=== PATIENT | female | born 1980 | race Caucasian/White ===

== ENCOUNTER 2018-05-04 13:18 | Observation (INO) | payer MEDICAID ==
[~2018-05-04] VITALS: Ht 175.3 cm; Wt 98.9 kg
[~2018-05-04 13:18] MED LIST: BC POWDER PACK1 EAC1 PO; TYLENOL WITH C1 EACH PO; Z.0.MOTRIN600 MG PO
[2018-05-04] MEDS ORDERED: DIATRIZOATE MEGL/DIATRIZOA SOD 30 ML BTL PO ONE (14:43)
[2018-05-04] MEDS ORDERED: SODIUM CHLORIDE 0.9% 250ML 250 ML IV ONE ×2 (14:45→16:15)
--- NOTE | 2018-05-04 15:05 | NUR ---
PT TO RM 3
[2018-05-04 15:08] LABS: BASOPHILS # (AUTO) 0.1 (0.0-0.1); BASOPHILS % 0.5 % (0.0-1.0); EOSINOPHILS % 0.1 % (0.0-6.0); LYMPHOCYTES # (AUTO) 1.4 (1.0-3.2); LYMPHOCYTES % 12.4 % (18.0-39.1); MEAN CORPUSCULAR HEMOGLOBIN 15.7 pg (28-32); MEAN CORPUSCULAR HGB CONC 23.8 g/dL (31-35); MEAN CORPUSCULAR VOLUME 65.8 fL (81-99); MONOCYTES # (AUTO) 0.8 (0.2-0.8); MONOCYTES % 7.2 % (4.4-11.3); NEUTROPHILS # (AUTO) 8.7 (2.1-6.9); NEUTROPHILS % 79.3 % (38.7-80.0); PLATELET COUNT 187 x10e3/uL (140-360); RED BLOOD COUNT 2.81 x10e6/uL (3.6-5.1); RED CELL DISTRIBUTION WIDTH 27.6 % (11.7-14.4)
[2018-05-04 15:09] LABS: HEMATOCRIT 18.5 % (34.2-44.1); HEMOGLOBIN 4.4 g/dL (12.0-16.0)
--- NOTE | 2018-05-04 15:10 | NUR ---
MARY FROM LAB CALLED TO REPORT H&H 4.07/09.5. INFORMED DR. BANEGAS OF CRITICAL LAB RESULTS.
[2018-05-04 15:30] LABS: ALANINE AMINOTRANSFERASE 9 IU/L (0-55); ALBUMIN 4.1 g/dL (3.5-5.0); ALBUMIN/GLOBULIN RATIO 1.1 (0.8-2.0); ALKALINE PHOSPHATASE 68 IU/L (40-150); AMYLASE 50 U/L (25-125); ANION GAP 15.6 mmol/L (8-16); BLOOD UREA NITROGEN 5 mg/dL (7-26); BUN/CREATININE RATIO 7 (6-25); CALCIUM 9.2 mg/dL (8.4-10.2); CARBON DIOXIDE 20 mmol/L (22-29); CHLORIDE 104 mmol/L (98-107); CREATININE, SERUM 0.67 mg/dL (0.57-1.11); EST GLOMERULAR FILTRATION RATE > 60 ML/MIN (60-); GLUCOSE 95 mg/dL (74-118); LIPASE 16 U/L (8-78); MAGNESIUM 2.2 MG/DL (1.3-2.1); POTASSIUM 3.6 mmol/L (3.5-5.1); SODIUM 136 mmol/L (136-145)
[2018-05-04 16:57] LABS: CLARITY,URINE CLEAR (CLEAR); COLOR,URINE YELLOW (YELLOW); LEUKOCYTE ESTERASE ,URINE NEGATIVE (NEGATIVE); NITRITE,URINE NEGATIVE (NEGATIVE); PROTEIN,URINE DIPSTICK NEGATIVE (NEGATIVE)
[2018-05-04 16:58] LABS: BILIRUBIN,URINE NEGATIVE (NEGATIVE); KETONES,URINE NEGATIVE (NEGATIVE); URINE UROBILINOGEN 0.2 mg/dL (0.2 - 1)
[2018-05-04 17:10] LABS: BACTERIA,URINE MODERATE /HPF; EPITHELIAL CELLS,URINE MODERATE /LPF
--- NOTE | 2018-05-04 17:13 | Diagnostic Imaging Report ---
EXAMINATION: CT of the abdomen and pelvis with contrast. TECHNIQUE: Helical CT images of the abdomen and pelvis were performed from the lung bases to the lesser trochanters after the intravenous administration of 150 cc of Isovue 300 and the oral administration of enteric contrast. Coronal and sagittal reformatted images were obtained.Dose modulation, iterative reconstruction, and/or weight based adjustment of the mA/kV was utilized to reduce the radiation dose to as low as reasonably achievable. COMPARISON: None. CLINICAL HISTORY:Severe left-sided pain DISCUSSION: ABDOMEN/PELVIS: LOWER THORAX:Unremarkable. HEPATOBILIARY: No focal hepatic lesions. No intra-or extrahepatic biliary ductal dilation. The gallbladder is normal. SPLEEN: No splenomegaly. PANCREAS: No focal masses or ductal dilatation. ADRENALS: No adrenal nodules. KIDNEYS/URETERS: No hydronephrosis, stones, or solid mass lesions. PELVIC ORGANS/BLADDER: The endometrial canal is irregular thickened. Subserosal pedunculated fibroid extending 6.5 cm fundus PERITONEUM/RETROPERITONEUM: No free air or fluid. LYMPH NODES: No intra-abdominal, retroperitoneal, pelvic or inguinal lymphadenopathy. VESSELS: The celiac trunk,superior and inferior mesenteric and bilateral renal arteries are patent The portal, superior mesenteric and splenic veins are patent. GI TRACT: No distention or wall thickening. BONES AND SOFT TISSUE: No bony destructive lesions. No soft tissue abnormalities. IMPRESSION: A subserosal pedunculated 6.5 cm uterine fibroid Irregularity and thickening of the endometrial canal Signed by: Dr. Issac Gates M.D. on 05/04/2018 5:10 PM
--- OUTSIDE RECORDS SUMMARY | 2018-05-04 17:42 | XMS REPORT ---
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 Allergies, Adverse Reactions, Alerts This patient has no known allergies or adverse reactions. Medications This patient has no known medications. 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 TECH NIQUE: Helical CT images of the abdomen and pelvis were performed from the lung bases to the lesser trochanters after the intravenous administration of 150 cc of Isovue 300 and the oral administration of enteric contrast. Coronal and sagittal reformatted images were obtained.Dose modulation, iterative reconstruction, and/or weight based adjustment of the mA/kV was utilized to reduce the radiation dose to as low as reasonably achievable. COMPARISON: None. CLINICAL HISTORY:Severe left-sided pain DISCUSSION: ABDOMEN/PELVIS: LOWER THORAX:Unremarkable. HEPATOBILIARY: No focal hepatic lesions. No intra-or extrahepatic biliary ductal dilation. The gallbladder is normal. SPLEEN: No splenomegaly. PANCREAS: No focal masses or ductal dilatation. ADRENALS: No adrenal nodules. KIDNEYS/URETERS: No hydronephrosis, stones, or solid mass lesions. PELVIC ORGANS/BLADDER: The endometrial canal is irregular thickened. Subserosal pe dunculated fibroid extending 6.5 cm fundus PERITONEUM/RETROPERITONEUM: No free air or fluid. LYMPH NODES: No intra-abdominal, retroperitoneal, pelvic or inguinal lymphadenopathy. VESSELS: The celiac trunk,superior and inferior mesenteric and bilateral renal arteries are patent The portal, superior mesenteric and splenic veins are patent. GI TRACT: No distention or wall thickening. BONES AND SOFT TISSUE: No bony destructive lesions. No soft tissue abnormalities. IMPRESSION: A subserosal pedunculated 6.5 cm uterine fibroid Irregularity and thickening of the endometrial canal Signed by: Dr. Davy Pozo M.D. on 05/04/2018 5:10 PM Dictated By: DAVY POZO MD 09 Transcribed By: DARIN on 05/04/181709 COPY TO: BRUNO OCASIO NP
--- NOTE | 2018-05-04 19:19 | NUR ---
report given to RADHA Lazcano
[2018-05-04] MEDS ORDERED: IOPAMIDOL 370 MG/ML 200 ML INFUS..BTL INJ ONE (20:32)
[2018-05-04] MEDS ORDERED: SODIUM CHLORIDE 0.9% 50ML 50 ML ONE (20:32)
[2018-05-04 21:21] VITALS: BP 113/55
[2018-05-04] MEDS: HYDROCODONE/APAP 5MG-325MG TAB PO PRN (22:20)
[2018-05-04] MEDS ORDERED: SODIUM CHLORIDE 0.9% 250ML 250 ML ONE (23:53)
[2018-05-05] VITALS: BP 104/51
[2018-05-05 00:18] VITALS: BP 105/52
[2018-05-05] MEDS: ACETAMINOPHEN 325 MG TAB PO PRN ×2 (03:06→21:05)
[2018-05-05 04:00] VITALS: BP 103/58
[2018-05-05 05:35] LABS: BASOPHILS # (AUTO) 0.1 (0.0-0.1); BASOPHILS % 1.1 % (0.0-1.0); EOSINOPHILS # (AUTO) 0.2 (0.0-0.4); EOSINOPHILS % 2.1 % (0.0-6.0); LYMPHOCYTES # (AUTO) 1.6 (1.0-3.2); LYMPHOCYTES % 18.9 % (18.0-39.1); MEAN CORPUSCULAR HEMOGLOBIN 19.1 pg (28-32); MEAN CORPUSCULAR HGB CONC 27.2 g/dL (31-35); MONOCYTES % 12.2 % (4.4-11.3); NEUTROPHILS # (AUTO) 5.4 (2.1-6.9); NEUTROPHILS % 65.5 % (38.7-80.0); PLATELET COUNT 174 x10e3/uL (140-360); RED BLOOD COUNT 3.24 x10e6/uL (3.6-5.1); RED CELL DISTRIBUTION WIDTH 28.1 % (11.7-14.4)
[2018-05-05 05:37] LABS: HEMATOCRIT 22.8 % (34.2-44.1)
[2018-05-05 05:39] LABS: HEMOGLOBIN 6.2 g/dL (12.0-16.0); MEAN CORPUSCULAR VOLUME 70.4 fL (81-99)
[2018-05-05] MEDS ORDERED: SODIUM CHLORIDE 0.9% 250ML 250 ML IV ONE (05:45)
--- NOTE | 2018-05-05 05:45 | NUR ---
Called Dr. Vazquez about patient's Hemoglobin at 6.2 and hematocrit at 22.8. Dr. Vazquez said to give two more units of blood.
[2018-05-05] MEDS: HYDROCODONE/APAP 5MG-325MG TAB PO PRN ×2 (06:04→16:12)
[2018-05-05 07:25] LABS: ANISOCYTOSIS MODE; HYPOCHROMASIA MODERATE; PLATELET ESTIMATE ADEQUATE; POIKILOCYTOSIS SLIGHT; RBC MORPHOLOGY COMMENT ABNORMAL
[2018-05-05 07:26] LABS: PLATELET MORPHOLOGY COMMENT NORMAL
[2018-05-05 08:13] VITALS: BP 101/57
--- NOTE | 2018-05-05 09:24 | NUR ---
SOCIAL WORK INITIAL ASSESSMENT Futures Trader to bedside to discuss plan of care with patient/family. CM/SW role and care transitions discussed. Anticipated discharge plan discussed along with duration of care. CM/SW discussed patients right to make decisions in care. CM/SW work hours given. Patient lives: IN HOUSE WITH FRIENDS Admit/Transfer: VIA ED FROM HOME POA/Emergency contact: MELINDA HAIDER [phone] Current/Previous Home Health: NONE PCP/Follow-up Care: NONE Current/Previous DME: NONE Other Services: GAVE RESOURCE PACKET FOR COMMUNITY REFERRALS FOR ASSISTANCE THAT PT WILL NEED TO FOLLOW UP UPON DISCHARGE. Employment Status: NOT WORKING Areas of Concerns: NONE Referral Needs: NONE Education Needs: NONE IMM/CONLEY given and signed (if applicable): NA Goal for discharge: RETURN HOME CM/SW left business card at the bedside with contact information. Name and number was also written on the patients whiteboard. Patient verbalized understanding of discussion. CM will follow-up with ongoing discharge and transition of care needs.
[2018-05-05 11:36] VITALS: BP 108/54
--- NOTE | 2018-05-05 13:20 | NUR ---
Visit made by the Spiritual Care Department Pastoral Visitor, Heather Penaloza. PV provided pastoral presence, prayer, hospitality, and supportive listening. Pastoral Visitor informed pt/family of the scope of Water Resources Project Manager Services and availability. MAGDY GLASER Printed Circuit Board Assembler Spiritual Care Department O: [phone] Pager: [phone] ([phone] number calling from)
--- NOTE | 2018-05-05 13:30 | History and Physical ---
MEDICINE HISTORY AND PHYSICAL CHIEF COMPLAINT: Vaginal bleeding. HPI: This is a 37-year-old female who reports having very heavy periods ongoing for the last several months. Comes in with reports of lightheadedness, dizziness and fatigue, and found to have a hemoglobin of 4.4. Patient reports that her periods usually last about a few days. Of note, recently has been lasting for more than 15-16 days. She does not follow up with an [facility] as an outpatient. The patient was seen and evaluated at bedside on the medical floor. Currently, doing well with no other issues. She received 2 units packed RBCs and she will receive 1 more unit of blood. She is currently feeling much better at this time. REVIEW OF SYSTEMS: Pertinent positives are lightheadedness, fatigue. Pertinent negatives are denies any chest pain, palpitations, nausea, vomiting, diarrhea, dysuria, hematuria, frequency, urgency, abdominal pain, headache, shortness of breath, cough, congestion, fever, or any other complaints. The rest of the 14-point review of systems have been reviewed with the patient and are negative. ALLERGIES: NO KNOWN DRUG ALLERGIES. HOME MEDICATIONS: Tylenol No. 3. PAST MEDICAL HISTORY: Heavy periods. FAMILY HISTORY: None. SOCIAL HISTORY: No drinking alcohol or drugs. PHYSICAL EXAMINATION VITAL SIGNS: Temperature is 98.3, pulse 70, respiratory rate 18, blood pressure , pulse ox 97% on room air. GENERAL: Not in acute distress. Alert and oriented times 3. Cooperative on examination. HEENT: Head is normocephalic and atraumatic. Eyes: Pupils equal, round and reactive to light bilaterally. Extraocular movements intact bilaterally. NECK: Supple. Good range of motion. Throat with no evidence of any erythema or exudates in the posterior pharynx. Has poor dentition. PULMONARY: Clear to auscultation bilaterally. No wheezing. No rales. No rhonchi. No crackles appreciated. CARDIOVASCULAR: Positive S1 and S2. No murmurs, rubs or gallops appreciated. ABDOMEN: Soft, nondistended and nontender to palpation. Bowel sounds present. MUSCULOSKELETAL: Strength is 5/5 throughout. No evidence of any muscle deficit on examination. No weakness appreciated. NEUROLOGICAL: Cranial nerves II-XII are grossly intact. No evidence of any neurological deficits on exam. SKIN: Intact. Warm to touch. Good cap refill. PSYCHIATRIC: Normal affect and mood. EXTREMITIES: No edema. Good range of motion throughout. LAB FINDINGS: Show white count is 8.3, hemoglobin on admission 4.4 and now 6.2 on repeat soon after the blood transfusion, and platelets are 174,000. Chemistry: Sodium 136, potassium 3.6, chloride 104, bicarb 28, anion gap of 15, BUN is 5, creatinine is 0.67, glucose 95. LFTs were normal. Lipase is 16. HCG is negative. Urinalysis negative. MICROBIOLOGY: Cultures are pending. IMAGING STUDIES: Abdominal CT of the abdomen and pelvis shows subserosal of 6.5 and uterine fibroid. Irregular and consistent with uterine fibroid. IMPRESSION 1. Vaginal bleeding secondary to uterine fibroids. 2. Anemia. 3. Fatigue and generalized weakness. PLAN: At this time, the patient has received 3 units of packed RBCs. She has 1 more unit to be given today. Repeat hemoglobin at that time. If it is appropriate and she has no more symptoms, she will be discharged home later today. Information from [facility] and primary care has been given to them in which she needs to follow up very closely with them. Otherwise, will continue same plan of care and monitor very closely. Job#: [id number] SHADE
[2018-05-05 16:33] VITALS: BP 109/54
--- NOTE | 2018-05-05 19:10 | NUR ---
PATIENT IS IN BED AND WAITING FOR BLOOD TO BE DRAWN. GIRLFRIEND IS AT THE BEDSIDE.
[2018-05-05 20:11] LABS: HEMATOCRIT 28.4 % (34.2-44.1); HEMOGLOBIN 8.3 g/dL (12.0-16.0)
--- NOTE | 2018-05-05 21:10 | NUR ---
PATIENT WAS GIVEN PRESCRIPTIONS AND DISCHARGE INFORMATION. THE IV WAS TAKEN OUT WITH THE TIP INTACT. PATIENT LEFT VIA WHEELCHAIR HOME. NO DISTRESS NOTED ON DISCHARGE. DRESSING APPLIED AFTER THE IV WAS TAKEN OUT.
--- NOTE | 2018-05-05 23:24 | Discharge Summary ---
FINAL DISCHARGE DIAGNOSES: 1. Uterine fibroids leading to vaginal bleeding. 2. Anemia. 3. Generalized weakness and fatigue, now improved. Now with hemoglobin of 8.6 upon discharge with no symptoms. CONSULTANTS: None. VITAL SIGNS: She is afebrile, normotensive. Respiratory rate is good. LABS: Hemoglobin now is 8.6 upon discharge. When she came in, hemoglobin was 4.4. HOSPITAL COURSE: This is a 37-year-old female who came in with complaints of generalized weakness and fatigue and dizziness, found to have a hemoglobin of approximately 4, requiring blood transfusion times 4 units. On discharge, hemoglobin was 8.6. Patient reports she has a history of uterine fibroids leading to her underlying vaginal bleeding. She is currently doing much better. On discharge, she had no more vaginal bleeding. Her hemoglobin improved. Her symptoms all resolved. On the day of discharge, her vital signs were stable, labs reviewed and stable. Patient was seen, evaluated, and examined thoroughly on the day of discharge with no other complaints. Patient verbalized understanding and agrees with plan of care, to follow up accordingly as an outpatient with her primary care physician in 1 week time. MEDICATIONS: See med reconciliation form. DISPOSITION: To home. CONDITION: Stable. DIET: Heart healthy. In the event of any worsening symptoms, patient advised to come back to the ED for further evaluation. Discharge summary took greater than 35 minutes. RONNIE ARREOLA MD Job#: [id number]
== END 2018-05-05 21:20 | disposition home or self-care (01) ==
LOC: ER 13:18 → ERHOLD 17:31 → IMCU 21:21
PROVIDERS: ADMIT Internal Medicine; ATTEND Internal Medicine
DX: D25.2 Subserosal leiomyoma of uterus (principal); N93.9 Abnormal uterine and vaginal bleeding, unspecified; D50.0 Iron deficiency anemia secondary to blood loss (chronic); R53.1 Weakness
CPT/HCPCS: 36415 ×2; 36430 ×2; 74177; 80053; 81001; 82150; 83690; 83735; 84702; 85014; 85018; 85025 ×2; 86850; 86900; 86920; 87086; 99284; G0378 ×2; J7050 ×2; P9016 ×2; Q9967

== ENCOUNTER 2018-10-01 15:35 | Emergency (ER) | payer SELFPAY ==
[~2018-10-01] VITALS: Ht 175.3 cm; Wt 91.2 kg
[2018-10-01 17:39] VITALS: BP 107/67
== END 2018-10-01 16:58 | disposition home or self-care (01) ==
LOC: FSED 15:35
DX: L03.211 Cellulitis of face (principal); K13.0 Diseases of lips; F17.210 Nicotine dependence, cigarettes, uncomplicated
CPT/HCPCS: 82948; 99282

== ENCOUNTER 2018-10-03 14:18 | Emergency (ER) | payer SELFPAY ==
[~2018-10-03] VITALS: Ht 175.3 cm; Wt 91.2 kg
== END 2018-10-03 15:15 | disposition home or self-care (01) ==
LOC: ER 14:18
DX: B00.1 Herpesviral vesicular dermatitis (principal); L03.211 Cellulitis of face
CPT/HCPCS: 99283

== ENCOUNTER 2019-05-16 13:30 | Emergency (ER) | payer SELFPAY ==
[~2019-05-16] VITALS: Ht 175.3 cm; Wt 91.2 kg
[2019-05-16] MEDS ORDERED: CLINDAMYCIN PHOS 600 MG/ 4 ML VIAL IM ONE (13:45)
[2019-05-16] MEDS ORDERED: HYDROCODONE/APAP 5MG-325MG TAB PO ONE (14:00)
== END 2019-05-16 14:52 | disposition home or self-care (01) ==
LOC: ER 13:30
DX: L02.01 Cutaneous abscess of face (principal)
CPT/HCPCS: 99283

== ENCOUNTER 2019-09-20 16:26 | Emergency (ER) | payer SELFPAY ==
[~2019-09-20] VITALS: Ht 175.3 cm; Wt 91.2 kg
[2019-09-20] MEDS ORDERED: ONDANSETRON HCL 4 MG ORAL DISINTEGRATING TAB PO ONE (17:00)
--- NOTE | 2019-09-20 17:23 | Emergency Department Note ---
History of Present Illnes History of Present Illness Chief Complaint: General Medicine Complaints History of Present Illness This is a 39 year old female PATIENT IN FROM HOME WITH COMPLAINTS OF NAUSEA, VOMITING, HEADACHE AND GENERAL WEAKNESS SINCE FRIDAY; PATIENT ALERT AND ORIENTED, RESP EVEN AND NONLABORED, APPEARS IN NO DISTRESS, AMBULATORY WITHOUT ASSISTANCE, RATES PAIN 3/10. 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 Any updates have been documented here. Past Medical History Recent Fever: No Clinical Suspicion of Infectio: No New/Unexplained Change in Ment: No Past Medical History: Anemia Other Medical History: menorrhagia UTERINE FIBROIDS Other Surgery: R arm artery surgery Social History Smoking Cessation: Current every day smoker Counseling Performed: Yes Alcohol Use: Social Any Illegal Drug Use: No TB Exposure/Symptoms: No Physically hurt or threatened: No Family History Family history of heart diseas: No Other Last Tetanus: UNKNOWN Any Pre-Existing Lines (PICC,: No Review of Systems Review of Systems Constitutional: Reports no symptoms EENTM: Reports no symptoms Cardiovascular: Reports no symptoms Respiratory: Reports no symptoms Gastrointestinal: Reports nausea, Reports vomiting Genitourinary: Reports no symptoms Musculoskeletal: Reports no symptoms Integumentary: Reports no symptoms Neurological: Reports headache Psychological: Reports no symptoms Endocrine: Reports no symptoms Hematological/Lymphatic: Reports no symptoms Physical Exam Related Data Allergies: Coded Allergies: No Known Allergies (Unverified , 04/01/19) Triage Vital Signs Vital Signs Date Time Temp Pulse Resp B/P (MAP) Pulse Ox O2 Delivery O2 Flow Rate FiO2 09/20/19 16:49 98.3 96 20 127/85 100 Vital signs reviewed: Yes Physical Exam CONSTITUTIONAL Constitutional: Present well-developed, Present well-nourished HENT HENT: Present normocephalic, Present atraumatic, Present mucosae dry, Present nose normal HENT L/R: Present left ext ear normal, Present right ext ear normal EYES Eyes: Reports PERRL, Reports conjunctivae normal NECK Neck: Present ROM normal PULMONARY Pulmonary: Present effort normal, Present breath sounds normal CARDIOVASCULAR Cardiovascular: Present regular rhythm, Present heart sounds normal, Present capillary refill normal, Present normal rate GASTROINTESTINAL Abdominal: Present soft, Present nontender, Present bowel sounds normal GENITOURINARY Genitourinary: Present exam deferred SKIN Skin: Present warm, Present dry MUSCULOSKELETAL Musculoskeletal: Present ROM normal NEUROLOGICAL Neurological: Present alert, Present oriented x 3, Present no gross motor or sensory deficits PSYCHOLOGICAL Psychological: Present mood/affect normal, Present judgement normal Assessment & Plan Medical Decision Making [facility] PT'S VITALS ARE GOOD, NO DISTRESS, NORMAL EXAM, NO ABD TENDERNESS - WILL GIVE ZOFRAN ODT, DC HOME Reassessment Reassessment IMPROVED WITH ZOFRAN ODT - WILL DC WITH RX Assessment & Plan Final Impression: (1) Vomiting Depart Disposition: HOME, SELF-CARE Last Vital Signs Date Time Temp Pulse Resp B/P (MAP) Pulse Ox O2 Delivery O2 Flow Rate FiO2 09/20/19 16:49 98.3 96 20 127/85 100 Home Meds Reported Medications Acetaminophen With Codeine (TYLENOL WITH CODEINE #3 TABLET) 1 Each Tablet, 300 MG PO PRN, TAB 01/20/16 Medications in the ED Ondansetron HCl 4 mg ONCE ONCE PO Last administered on 09/20/19at 17:21; Admin Dose 4 MG; Start 09/20/19 at 17:00; Stop 09/20/19 at 17:01; Status UNV SUSHMA YING MD Sep 20, 2019 17:23
== END 2019-09-20 17:30 | disposition home or self-care (01) ==
LOC: ER 17:08
DX: R11.2 Nausea with vomiting, unspecified (principal); R51 Headache; R53.1 Weakness; D64.9 Anemia, unspecified
CPT/HCPCS: 99282

== ENCOUNTER 2019-10-25 19:56 | Emergency (ER) | payer SELFPAY ==
[~2019-10-25] VITALS: Ht 175.3 cm; Wt 89.8 kg
[2019-10-25] MEDS ORDERED: KETOROLAC TROMETHAMINE 30 MG/ML VIAL IV ONE (20:48)
[2019-10-25] MEDS ORDERED: SODIUM CHLORIDE FLUSH 10 ML SYR INJ PRN (21:00)
[2019-10-25] MEDS ORDERED: LORAZEPAM INJ 2 MG/ML VIAL IV ONE (21:00)
[2019-10-25] MEDS ORDERED: ORPHENADRINE CITRATE 30 MG/ML VIAL IM ONE (21:00)
--- NOTE | 2019-10-25 21:20 | NUR ---
PT REFUSED ALL TREATMENT STATING SHE DID NOT THINK IT WAS NEEDED AND ASKING TO GO HOME.
[2019-10-25 21:37] VITALS: BP 142/63
--- NOTE | 2019-10-25 21:37 | Emergency Department Note ---
History of Present Illnes History of Present Illness Chief Complaint: left cp History of Present Illness This is a 39 year old female. 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 Onset (how long ago): hour(s) (1) Location: left cp Quality: sharp Radiation: Reports non-radiation Severity: moderate Onset quality: gradual Duration (how long): hour(s) (1) Timing of current episode: intermittent Progression: partially resolved Chronicity: new Context: Denies recent illness, Denies recent surgery, Denies recent immobilization, Denies recent travel, Denies trauma/injury, Denies new medications, Denies hx of DVT/PE, Denies non-compliance w/ medications Relieving factors: none Exacerbating factors: movement Associated symptoms: Reports chest pain, Reports shortness of breath, Reports other (+ back pain) Treatments prior to arrival: none Past Medical/Family History Physician Review I have reviewed the patient's past medical and family history. Any updates have been documented here. Past Medical History Recent Fever: No Clinical Suspicion of Infectio: No New/Unexplained Change in Ment: No Past Medical History: Anemia Other Medical History: ANEMIA Other Surgery: R-ARM ARTERY Social History Smoking Cessation: Current every day smoker Alcohol Use: Occasional Any Illegal Drug Use: No Physically hurt or threatened: No Other Last Tetanus: UNKNOWN Any Pre-Existing Lines (PICC,: No Review of Systems Review of Systems Constitutional: Reports no symptoms EENTM: Reports no symptoms Cardiovascular: Reports as per HPI Respiratory: Reports as per HPI Gastrointestinal: Reports no symptoms Genitourinary: Reports no symptoms Musculoskeletal: Reports as per HPI Integumentary: Reports no symptoms Neurological: Reports no symptoms Psychological: Reports no symptoms Endocrine: Reports no symptoms Hematological/Lymphatic: Reports no symptoms Review of other systems: All other systems negative Physical Exam Related Data Allergies: Coded Allergies: No Known Allergies (Unverified , 04/01/19) Triage Vital Signs Vital Signs Date Time Temp Pulse Resp B/P (MAP) Pulse Ox O2 Delivery O2 Flow Rate FiO2 10/25/19 20:25 98.9 84 18 142/63 100 Room Air Vital signs reviewed: Yes Physical Exam CONSTITUTIONAL Constitutional: Present well-developed, Present well-nourished HENT HENT: Present normocephalic, Present atraumatic, Present oropharynx clear/moist, Present nose normal HENT L/R: Present left ext ear normal, Present right ext ear normal EYES Eyes: Reports PERRL, Reports conjunctivae normal NECK Neck: Present ROM normal, Present supple PULMONARY Pulmonary: Present effort normal, Present breath sounds normal, Present other (=left cw tenderness) CARDIOVASCULAR Cardiovascular: Present regular rhythm, Present heart sounds normal, Present intact distal pulses, Present capillary refill normal, Present normal rate GASTROINTESTINAL Abdominal: Present soft, Present nontender, Present bowel sounds normal GENITOURINARY Genitourinary: Present exam deferred SKIN Skin: Present warm, Present dry MUSCULOSKELETAL Musculoskeletal: Present ROM normal NEUROLOGICAL Neurological: Present alert, Present oriented x 3, Present no gross motor or sensory deficits PSYCHOLOGICAL Psychological: Present mood/affect normal, Present judgement normal Assessment & Plan Medical Decision Making MDM see below Reassessment Reassessment symptoms resolved and pt signed out ama despite possibility of or permanent disability. pt refuse a work up Assessment & Plan Final Impression: (1) Acute chest pain (2) Left against medical advice Depart Disposition: HOME, SELF-CARE Last Vital Signs Date Time Temp Pulse Resp B/P (MAP) Pulse Ox O2 Delivery O2 Flow Rate FiO2 10/25/19 20:25 98.9 84 18 142/63 100 Room Air Home Meds Reported Medications Acetaminophen With Codeine (TYLENOL WITH CODEINE #3 TABLET) 1 Each Tablet, 300 MG PO PRN, TAB 01/20/16 Medications in the ED Sodium Chloride 10 ml PRN PRN INJ IV SITE FLUSH; Start 10/25/19 at 21:00; Stop 11/24/19 at 20:59 Ketorolac Tromethamine 30 mg ONCE ONCE IV ; Start 10/25/19 at 20:48; Stop 10/25/19 at 21:04; Status DC Orphenadrine Citrate 60 mg ONCE ONCE IM ; Start 10/25/19 at 21:00; Stop 10/25/19 at 20:57; Status DC Lorazepam 1 mg ONCE ONCE IV ; Start 10/25/19 at 21:00; Stop 10/25/19 at 21:04; Status DC BIJAN AVALOS Oct 25, 2019 21:37
--- OUTSIDE RECORDS SUMMARY | 2019-10-26 01:25 | XMS REPORT | Continuity of Care Document ---
Author Author [facility] t Organization [facility] Address [address] [place] [phone] Phone Unavailable Care Team Providers Care Finish Machine Tender Name Role Phone NO, PCP PCP Unavailable Gaby YING Attphys Unavailable Latha BANEGAS Attphys Unavailable Payers Payer Name Policy Type Policy Number Effective Date Expiration Date S ource Self Pay NA [facility] Medicaid Pending [facility] Problems Condition Name Condition Details Condition Category Status Onset Date Resolution Date Last Treatment Date Treating Clinician Comments Source Severe anemia Severe anemia Problem Active 2015-07-23 00:00:00 [facility] Uterine leiomyoma Uterine fibroid Problem Active [facility] Vomiting Problem Active [facility] Allergies, Adverse Reactions, Alerts This patient has no known allergies or adverse reactions. Social History Social Habit Start Date Stop Date Quantity Comments Source Sex Assigned At 1980 00:00:00 1980 00:00:00 Female [facility] Medications Ordered Medication Name Filled Medication Name Start Date Stop Da te Current Medication? Ordering Clinician Indication Dosage Frequency Signature (SIG) Comments Components Source Acetaminophen With Codeine (Tylenol With Codeine #3 Ta blet) 1 Each TABLET Acetaminophen With Codeine (Tylenol With Codeine #3 Tablet) 1 Each TABLET Yes 300 As Needed [facility] Aspirin/Caffeine (Bc Powder Packet) 1 Each POWD.PACK A spirin/Caffeine (Bc Powder Packet) 1 Each POWD.PACK 2015-07-25 00:00:00 No 1 3X Weekly [facility] Vital Signs Vital Name Observation Time Observation Value Comments Source Weight 2019-09-20 16:49:00 201 [lb_av] [facility] BMI (Body Mass Index) 2019-09-20 16:49:00 29.7 kg/m2 [facility] Procedures Procedure Date / Time Performed Performing Clinician [facility] e X-ray of chest, two views 2019-04-01 00:00:00 BRUNO OCASIO [facility] Plan of Care Planned Activity Planned Date Details Comments Source Instructions Vomiting - Adult [facility] Encounters Start Date/Time End Date/Time Encounter Type Admission Type [facility] Care Department Encounter ID Source 2019-09-20 17:08:00 2019-09-20 17:30:00 Departed Emergency Room [facility] [id number] [facility] 2019-05-16 12:30:00 2019-05-16 13:52:00 Departed Emergency Room [facility] [id number] [facility] 2019-04-01 11:48:00 2019-04-01 14:51:00 Departed Emergency Room 1 SUSHMA YING [facility] [id number] [facility] 2018-10-03 14:18:00 2018-10-03 15:15:00 Departed Emergency Room [facility] [id number] [facility] 2018-10-01 15:35:00 2018-10-01 16:58:00 Departed Emergency Room [facility] [id number] [facility] 2018-05-04 17:31:00 2018-05-05 21:20:00 Discharged Inpatient (obs) 1 FAN BANEGAS [facility] [id number] [facility] Results Test Description Test Time Test Comments Results Result Comments Source CHEST 2 VIEWS 2019-04-01 14:23:00 [place] [address] Patient Name: DOMINIK MOREL MR #: [id number] : 1980 Age/Sex: 38/F Req #: [id number] Adm Physician: Ordered by: BRUNO OCASIO TELEPHONE OPERATOR Report #: [id number] Location: ER Room/Bed: Procedure: [id number] DX/CHEST 2 VIEWS Exam Date: Exam Time: REPORT STATUS: Signed EXAMINATION: CHEST 2 VIEWS INDICATION: Shortness of breath, cough COMPARISON: None FINDINGS: LINES/TUBES:None LUNGS:The lungs are well-inflated. No focal consolidation or pulmonary edema. PLEURA:No pleural effusion or pneumothorax. MEDIASTINUM:The cardiomediastinal silhouette appears normal in size and shape. BONES/SOFT TISSUES:No acute osseous injury. ABDOMEN:No free air under the diaphragm. IMPRESSION: No focal pneumonia or pulmonary edema. Signed by: Edna Zelaya MD on 04/01/2019 2:23 PM Dictated By: EDNA ZELAYA MD 22 Transcribed By: XOCHITL HALL on 04/01/19 142 COPY TO: BRUNO OCASIO NP Hemoglobin 2018-05-05 20:20:00 Test Item Hemoglobin (test code = 04683-4) 8.3 12.0-16.0 L [facility]ematocrit2019-02-12 20:20:00* Test Item Value Reference Range Interpretation Comments Hematocrit (test code = 4544-3) 28.4 34.2-44.1 L [facility] CenterHemoglobin2019-02-12 20:20:00* Test Item Value Reference Range Interpretation Comments Hemoglobin (test code = 28364-5) 8.3 12.0-16.0 L [facility] CenterHematocrit2019-02-12 20:20:00* Test Item Value Reference Range Interpretation Comments Hematocrit (test code = 4544-3) 28.4 34.2-44.1 L [facility] CenterHemoglobin2019-02-12 20:20:00* Test Item Value Reference Range Interpretation Comments Hemoglobin (test code = 34613-2) 8.3 12.0-16.0 L [facility] CenterHematocrit2019-02-12 20:20:00* Test Item Value Reference Range Interpretation Comments Hematocrit (test code = 4544-3) 28.4 34.2-44.1 L [facility] CenterPlatelet Rggvindd2662-33-46 07:26:00* Test Item Value Reference Range Interpretation Comments Platelet Estimate (test code = 11674-0) ADEQUATE [facility] CenterPlatelet Morphology Qydvihg1791-48-15 07:26:00* Test Item Value Reference Range Interpretation Comments Platelet Morphology Comment (test code = 76846-1) NORMAL [facility] CenterHypochromasia2019-02-12 07:26:00* Test Item Value Reference Range Interpretation Comments Hypochromasia (test code = 728-6) MODERATE [facility] CenterPoikilocytosis2019-02-12 07:26:00* Test Item Value Reference Range Interpretation Comments Poikilocytosis (test code = 779-9) SLIGHT [facility] CenterAnisocytosis2019-02-12 07:26:00* Test Item Value Reference Range Interpretation Comments Anisocytosis (test code = 702-1) MODE [facility] CenterRed Cell Morphology Fsgopoq8254-11-13 07:26:00* Test Item Value Reference Range Interpretation Comments Red Cell Morphology Comment (test code = 6742-1) ABNORMAL [facility] CenterPlatelet Plwyihod5234-10-33 07:26:00* Test Item Value Reference Range Interpretation Comments Platelet Estimate (test code = 47387-6) ADEQUATE [facility] CenterPlatelet Morphology Mozseyu5420-62-60 07:26:00* Test Item Value Reference Range Interpretation Comments Platelet Morphology Comment (test code = 90503-1) NORMAL [facility] CenterHypochromasia2019-02-12 07:26:00* Test Item Value Reference Range Interpretation Comments Hypochromasia (test code = 728-6) MODERATE [facility] CenterPoikilocytosis2019-02-12 07:26:00* Test Item Value Reference Range Interpretation Comments Poikilocytosis (test code = 779-9) SLIGHT [facility] CenterAnisocytosis2019-02-12 07:26:00* Test Item Value Reference Range Interpretation Comments Anisocytosis (test code = 702-1) MODE [facility] CenterRed Cell Morphology Egvffot0661-55-79 07:26:00* Test Item Value Reference Range Interpretation Comments Red Cell Morphology Comment (test code = 6742-1) ABNORMAL [facility] CenterPlatelet Kglymiyg7775-56-84 07:26:00* Test Item Value Reference Range Interpretation Comments Platelet Estimate (test code = 41464-5) ADEQUATE [facility] CenterPlatelet Morphology Vqrgqcx2953-16-16 07:26:00* Test Item Value Reference Range Interpretation Comments Platelet Morphology Comment (test code = 03713-2) NORMAL [facility] 07:26:00* Test Item Value Reference Range Interpretation Comments Hypochromasia (test code = 728-6) [facility] 07:[facility]* Test Item Value Reference Range Interpretation Comments Poikilocytosis (test code = 779-9) SLIGHT [facility] CenterAnisocytosis2019-02-12 07:26:00* Test Item Value Reference Range Interpretation Comments Anisocytosis (test code = 702-1) MODE [facility] CenterRed Cell Morphology Oizcvfa9140-12-17 07:26:00* Test Item Value Reference Range Interpretation Comments Red Cell Morphology Comment (test code = 6742-1) ABNORMAL [facility] CenterWhite Blood Tijks8294-34-55 05:40:00* Test Item Value Reference Range Interpretation Comments White Blood Count (test code = 6690-2) 8.20 4.8-10.8 [facility] CenterRed Blood Whcpb8550-89-24 05:40:00* Test Item Value Reference Range Interpretation Comments Red Blood Count (test code = 789-8) 3.24 3.6-5.1 L [facility] CenterMean Corpuscular Uetguf7053-98-77 05:40:00* Test Item Value Reference Range Interpretation Comments Mean Corpuscular Volume (test code = 787-2) 70.4 81-99 L VERIFIED PREVIOUS RESULTSMethodist [facility]field Medical CenterMean Corpuscular Qeoximyrwr1293-57-88 05:40:00* Test Item Value Reference Range Interpretation Comments Mean Corpuscular Hemoglobin (test code = 785-6) 19.1 28-32 L [facility] Corpuscular Hemoglobin Concent 2018-05-05 05:40:00* Test Item Value Reference Range Interpretation Comments Mean Corpuscular Hemoglobin Concent (test code = 786-4) 27.2 31-35 L [facility] CenterRed Cell Distribution Brkcj6778-52-21 05:40:00* Test Item Value Reference Range Interpretation Comments Red Cell Distribution Width (test code = 24114-1) 28.1 11.7 -14.4 H [facility] CenterPlatelet Ksabl4889-25-42 05:40:00* Test Item Value Reference Range Interpretation Comments Platelet Count (test code = 777-3) 174 140-360 [facility] CenterNeutrophils (%) (Auto)2018-05-05 05:40:00 * Test Item Value Reference Range Interpretation Comments Neutrophils (%) (Auto) (test code = 57183-2) 65.5 38.7-80.0 [facility] CenterLymphocytes (%) (Auto)2018-05-05 05:40:00 * Test Item Value Reference Range Interpretation Comments Lymphocytes (%) (Auto) (test code = 736-9) 18.9 18.0-39.1 [facility] CenterMonocytes (%) (Auto)2018-05-05 05:40:00* Test Item Value Reference Range Interpretation Comments Monocytes (%) (Auto) (test code = 5905-5) 12.2 4.4-11.3 H [facility] CenterEosinophils (%) (Auto)2018-05-05 05:40:00 * Test Item Value Reference Range Interpretation Comments Eosinophils (%) (Auto) (test code = 713-8) 2.1 0.0-6.0 [facility] CenterBasophils (%) (Auto)2018-05-05 05:40:00* Test Item Value Reference Range Interpretation Comments Basophils (%) (Auto) (test code = 706-2) 1.1 0.0-1.0 H [facility] CenterIM GRANULOCYTES %2018-05-05 05:40:00* Test Item Value Reference Range Interpretation Comments IM GRANULOCYTES % (test code = IM GRANULOCYTES %) 0.2 0.0- 1.0 [facility] CenterNeutrophils # (Auto)2018-05-05 05:40:00* Test Item Value Reference Range Interpretation Comments Neutrophils # (Auto) (test code = 751-8) 5.4 2.1-6.9 [facility] CenterLymphocytes # (Auto)2018-05-05 05:40:00* Test Item Value Reference Range Interpretation Comments Lymphocytes # (Auto) (test code = 69501-6) 1.6 1.0-3.2 [facility] CenterMonocytes # (Auto)2018-05-05 05:40:00* Test Item Value Reference Range Interpretation Comments Monocytes # (Auto) (test code = 742-7) 1.0 0.2-0.8 H [facility] CenterEosinophils # (Auto)2018-05-05 05:40:00* Test Item Value Reference Range Interpretation Comments Eosinophils # (Auto) (test code = 711-2) 0.2 0.0-0.4 [facility] CenterBasophils # (Auto)2018-05-05 05:40:00* Test Item Value Reference Range Interpretation Comments Basophils # (Auto) (test code = 704-7) 0.1 0.0-0.1 [facility] CenterAbsolute Immature Granulocyte (auto 2018-05-05 05:40:00* Test Item Value Reference Range Interpretation Comments Absolute Immature Granulocyte (auto (lois t code = Absolute Immature Granulocyte (auto) 0.02 0-0.1 [facility] CenterWhite Blood Jnnbd0211-60-38 05:40:00* Test Item Value Reference Range Interpretation Comments White Blood Count (test code = 6690-2) 8.20 4.8-10.8 [facility] CenterRed Blood Oazwq9259-26-77 05:40:00* Test Item Value Reference Range Interpretation Comments Red Blood Count (test code = 789-8) 3.24 3.6-5.1 L [facility] CenterMean Corpuscular Hobqll2214-79-77 05:40:00* Test Item Value Reference Range Interpretation Comments Mean Corpuscular Volume (test code = 787-2) 70.4 81-99 L VERIFIED PREVIOUS RESULTSMethodist [facility]field Medical CenterMean Corpuscular Ukglzowsfl7085-05-24 05:40:00* Test Item Value Reference Range Interpretation Comments Mean Corpuscular Hemoglobin (test code = 785-6) 19.1 28-32 L [facility] CenterMean Corpuscular Hemoglobin Concent 2018-05-05 05:40:00* Test Item Value Reference Range Interpretation Comments Mean Corpuscular Hemoglobin Concent (test code = 786-4) 27.2 31-35 L [facility] CenterRed Cell Distribution Xugnz1979-19-46 05:40:00* Test Item Value Reference Range Interpretation Comments Red Cell Distribution Width (test code = 84137-0) 28.1 11.7 -14.4 H [facility] CenterPlatelet Jmhnz5972-71-95 05:40:00* Test Item Value Reference Range Interpretation Comments Platelet Count (test code = 777-3) 174 140-360 [facility] CenterNeutrophils (%) (Auto)2018-05-05 05:40:00 * Test Item Value Reference Range Interpretation Comments Neutrophils (%) (Auto) (test code = 83520-4) 65.5 38.7-80.0 [facility] CenterLymphocytes (%) (Auto)2018-05-05 05:40:00 * Test Item Value Reference Range Interpretation Comments Lymphocytes (%) (Auto) (test code = 736-9) 18.9 18.0-39.1 [facility] CenterMonocytes (%) (Auto)2018-05-05 05:40:00* Test Item Value Reference Range Interpretation Comments Monocytes (%) (Auto) (test code = 5905-5) 12.2 4.4-11.3 H [facility] CenterEosinophils (%) (Auto)2018-05-05 05:40:00 * Test Item Value Reference Range Interpretation Comments Eosinophils (%) (Auto) (test code = 713-8) 2.1 0.0-6.0 [facility] CenterBasophils (%) (Auto)2018-05-05 05:40:00* Test Item Value Reference Range Interpretation Comments Basophils (%) (Auto) (test code = 706-2) 1.1 0.0-1.0 H [facility] CenterIM GRANULOCYTES %2018-05-05 05:40:00* Test Item Value Reference Range Interpretation Comments IM GRANULOCYTES % (test code = IM GRANULOCYTES %) 0.2 0.0- 1.0 [facility] CenterNeutrophils # (Auto)2018-05-05 05:40:00* Test Item Value Reference Range Interpretation Comments Neutrophils # (Auto) (test code = 751-8) 5.4 2.1-6.9 [facility] CenterLymphocytes # (Auto)2018-05-05 05:40:00* Test Item Value Reference Range Interpretation Comments Lymphocytes # (Auto) (test code = 89322-7) 1.6 1.0-3.2 [facility] CenterMonocytes # (Auto)2018-05-05 05:40:00* Test Item Value Reference Range Interpretation Comments Monocytes # (Auto) (test code = 742-7) 1.0 0.2-0.8 H [facility] CenterEosinophils # (Auto)2018-05-05 05:40:00* Test Item Value Reference Range Interpretation Comments Eosinophils # (Auto) (test code = 711-2) 0.2 0.0-0.4 [facility] CenterBasophils # (Auto)2018-05-05 05:40:00* Test Item Value Reference Range Interpretation Comments Basophils # (Auto) (test code = 704-7) 0.1 0.0-0.1 [facility] CenterAbsolute Immature Granulocyte (auto 2018-05-05 05:40:00* Test Item Value Reference Range Interpretation Comments Absolute Immature Granulocyte (auto (lois t code = Absolute Immature Granulocyte (auto) 0.02 0-0.1 [facility] CenterWhite Blood Xbfqh5043-47-64 05:40:00* Test Item Value Reference Range Interpretation Comments White Blood Count (test code = 6690-2) 8.20 4.8-10.8 [facility] CenterRed Blood Xxtgk0027-54-89 05:40:00* Test Item Value Reference Range Interpretation Comments Red Blood Count (test code = 789-8) 3.24 3.6-5.1 L [facility] CenterMean Corpuscular Djjncq5704-82-07 05:40:00* Test Item Value Reference Range Interpretation Comments Mean Corpuscular Volume (test code = 787-2) 70.4 81-99 L VERIFIED PREVIOUS RESULTSMethodist [facility]field Medical CenterMean Corpuscular Eydegpqodk2003-13-84 05:40:00* Test Item Value Reference Range Interpretation Comments Mean Corpuscular Hemoglobin (test code = 785-6) 19.1 28-32 L [facility] CenterMean Corpuscular Hemoglobin Concent 2018-05-05 05:40:00* Test Item Value Reference Range Interpretation Comments Mean Corpuscular Hemoglobin Concent (test code = 786-4) 27.2 31-35 L [facility] CenterRed Cell Distribution Kgpls2504-33-93 05:40:00* Test Item Value Reference Range Interpretation Comments Red Cell Distribution Width (test code = 76491-5) 28.1 11.7 -14.4 H [facility] CenterPlatelet Owdjt6673-20-43 05:40:00* Test Item Value Reference Range Interpretation Comments Platelet Count (test code = 777-3) 174 140-360 [facility] CenterNeutrophils (%) (Auto)2018-05-05 05:40:00 * Test Item Value Reference Range Interpretation Comments Neutrophils (%) (Auto) (test code = 93405-7) 65.5 38.7-80.0 [facility] CenterLymphocytes (%) (Auto)2018-05-05 05:40:00 * Test Item Value Reference Range Interpretation Comments Lymphocytes (%) (Auto) (test code = 736-9) 18.9 18.0-39.1 [facility] CenterMonocytes (%) (Auto)2018-05-05 05:40:00* Test Item Value Reference Range Interpretation Comments Monocytes (%) (Auto) (test code = 5905-5) 12.2 4.4-11.3 H [facility] CenterEosinophils (%) (Auto)2018-05-05 05:40:00 * Test Item Value Reference Range Interpretation Comments Eosinophils (%) (Auto) (test code = 713-8) 2.1 0.0-6.0 [facility] CenterBasophils (%) (Auto)2018-05-05 05:40:00* Test Item Value Reference Range Interpretation Comments Basophils (%) (Auto) (test code = 706-2) 1.1 0.0-1.0 H [facility] CenterIM GRANULOCYTES %2018-05-05 05:40:00* Test Item Value Reference Range Interpretation Comments IM GRANULOCYTES % (test code = IM GRANULOCYTES %) 0.2 0.0- 1.0 [facility] CenterNeutrophils # (Auto)2018-05-05 05:40:00* Test Item Value Reference Range Interpretation Comments Neutrophils # (Auto) (test code = 751-8) 5.4 2.1-6.9 [facility] CenterLymphocytes # (Auto)2018-05-05 05:40:00* Test Item Value Reference Range Interpretation Comments Lymphocytes # (Auto) (test code = 16593-5) 1.6 1.0-3.2 [facility] CenterMonocytes # (Auto)2018-05-05 05:40:00* Test Item Value Reference Range Interpretation Comments Monocytes # (Auto) (test code = 742-7) 1.0 0.2-0.8 H [facility] CenterEosinophils # (Auto)2018-05-05 05:40:00* Test Item Value Reference Range Interpretation Comments Eosinophils # (Auto) (test code = 711-2) 0.2 0.0-0.4 [facility] CenterBasophils # (Auto)2018-05-05 05:40:00* Test Item Value Reference Range Interpretation Comments Basophils # (Auto) (test code = 704-7) 0.1 0.0-0.1 [facility] CenterAbsolute Immature Granulocyte (auto 2018-05-05 05:40:00* Test Item Value Reference Range Interpretation Comments Absolute Immature Granulocyte (auto (lois t code = Absolute Immature Granulocyte (auto) 0.02 0-0.1 [facility] CenterUrine IFN1013-88-36 17:10:00* Test Item Value Reference Range Interpretation Comments Urine WBC (test code = 5821-4) NONE 0-5 [facility] CenterUrine IOE6864-71-24 17:10:00* Test Item Value Reference Range Interpretation Comments Urine RBC (test code = 10310-3) 6-10 0-5 H [facility] CenterUrine Lzhpdqah1228-41-04 17:10:00* Test Item Value Reference Range Interpretation Comments Urine Bacteria (test code = 29228-4) MODERATE NONE H [facility] CenterUrine Epithelial Ipine5272-70-63 17:10:00 * Test Item Value Reference Range Interpretation Comments Urine Epithelial Cells (test code = 94525-8) MODERATE NONE [facility] CenterU[facility] KLO5666-31-26 17:10:00* Test Item Value Reference Range Interpretation Comments Urine WBC (test code = 5821-4) NONE 0-5 [facility] CenterU[facility] HUS5816-65-30 17:10:00* Test Item Value Reference Range Interpretation Comments Urine RBC (test code = 17250-9) 6-10 0-5 H [facility] CenterUrine Dtmhfcjq3212-50-64 17:10:00* Test Item Value Reference Range Interpretation Comments Urine Bacteria (test code = 87617-3) MODERATE NONE H [facility] CenterUrine Epithelial Raveh5697-50-96 17:10:00 * Test Item Value Reference Range Interpretation Comments Urine Epithelial Cells (test code = 96969-5) MODERATE NONE [facility] CenterU[facility] WUZ2060-59-55 17:10:00* Test Item Value Reference Range Interpretation Comments Urine WBC (test code = 5821-4) NONE 0-5 [facility] CenterU[facility] [id number] 17:10:00* Test Item Value Reference Range Interpretation Comments Urine RBC (test code = 08831-3) 6-10 0-5 H [facility] CenterUrine Mgpqisbw8462-61-67 17:10:00* Test Item Value Reference Range Interpretation Comments Urine Bacteria (test code = 24362-7) MODERATE NONE H [facility] CenterUrine Epithelial Drmtc6996-88-84 17:10:00 * Test Item Value Reference Range Interpretation Comments Urine Epithelial Cells (test code = 09886-6) MODERATE NONE [facility] CenterCT ABDOMEN/PELVIS [id number] 17:05:00 [facility] [address] [place] [address] Patient Name: DOMINIK MOREL MR #: [id number] : 3 Age/Sex: 37/F Req #: [id number] Adm Physician: Ordered by: BRUNO OCASIO NP Report #: [id number] Location: ER Room/Bed: Procedure: [id number] C T/CT ABDOMEN/PELVIS W Exam Date: Exam Time: REPORT STATUS: Signed EXAMINATION: CT of the abdomen and pelvis with contrast. TECHNIQUE: Helical CT images of the abdomen and pelvis were performed from the lung bases to the lesser troch anters after the intravenous administration of 150 cc of Isovue 300 and the or al administration of enteric contrast. Coronal and sagittal reformatted image s were obtained.Dose modulation, iterative reconstruction, and/or weight based adjustment of the mA/kV was utilized to reduce the radiation dose to as low a s reasonably achievable. COMPARISON: None. CLINICAL HISTORY:Severe l eft-sided pain DISCUSSION: ABDOMEN/PELVIS: LOWER THORAX:Unre markable. HEPATOBILIARY: No focal hepatic lesions. No intra-or extrahepati c biliary ductal dilation. The gallbladder is normal. SPLEEN: No sple nomegaly. PANCREAS: No focal masses or ductal dilatation. ADRENALS: N o adrenal nodules. KIDNEYS/URETERS: No hydronephrosis, stones, or solid mas s lesions. PELVIC ORGANS/BLADDER: The endometrial canal is irregular [place]. Subserosal pedunculated fibroid extending 6.5 cm fundus PERITONEUM/R ETROPERITONEUM: No free air or fluid. LYMPH NODES: No intra-abdominal, retr operitoneal, pelvic or inguinal lymphadenopathy. VESSELS: The celiac trun k,superior and inferior mesenteric and bilateral renal arteries are patent T he portal, superior mesenteric and splenic veins are patent. GI TRACT: No distention or wall thickening. BONES AND SOFT TISSUE: No bony destructive lesions. No soft tissue abnormalities. IMPRESSION: A subserosa l pedunculated 6.5 cm uterine fibroid Irregularity and thickening of the en dometrial canal Signed by: Dr. Davy Pozo M.D. on 05/04/2018 5:10 PM Dictated By: DAVY POZO MD 09 Transcribed By: DARIN on 05/04/181709 COPY TO: BRUNO OCASIO TELEPHONE OPERATOR Urine [id number] 16:58:00* Test Item Value Reference Range Interpretation Comments Urine Color (test code = 5778-6) YELLOW YELLOW [facility] CenterUrine Wakiapt2402-92-93 16:58:00* Test Item Value Reference Range Interpretation Comments Urine Clarity (test code = 60297-9) CLEAR CLEAR [facility] Dbtqjjj4340-93-23 16:58:00 * Test Item Value Reference Range Interpretation Comments Urine Specific [place] (test code = 5811-5) 1.005 1.010-1.02 5 L [facility] sU2946-15-33 16:58:00* Test Item Value Reference Range Interpretation Comments Urine pH (test code = 55614-8) 6 5-7 [facility] Leukocyte Ktfkrjpd8712-52-89 16:58:00* Test Item Value Reference Range Interpretation Comments Urine Leukocyte Esterase (test code = 5799-2) NEGATIVE NEGATIVE [facility] Leifdbm3794-51-35 16:58:00* Test Item Value Reference Range Interpretation Comments Urine Nitrite (test code = 87013-8) NEGATIVE NEGATIVE [facility] Xtgvcue9572-87-48 16:58:00* Test Item Value Reference Range Interpretation Comments Urine Protein (test code = 5804-0) NEGATIVE NEGATIVE [facility] Glucose (UA)2018-05-04 16:58:00* Test Item Value Reference Range Interpretation Comments Urine Glucose (UA) (test code = 2349-9) NEGATIVE NEGATIVE [facility] Lnmkjbt8699-43-35 16:58:00* Test Item Value Reference Range Interpretation Comments Urine Ketones (test code = 48828-4) NEGATIVE NEGATIVE [facility] Rmotxfhwqrna5532-66-02 16:58:00* Test Item Value Reference Range Interpretation Comments Urine Urobilinogen (test code = 83749-7) 0.2 0.2-1 [facility] Upwsvkhfy6298-83-78 16:58:00* Test Item Value Reference Range Interpretation Comments Urine Bilirubin (test code = 1978-6) NEGATIVE NEGATIVE [facility] Dboop5271-86-81 16:58:00* Test Item Value Reference Range Interpretation Comments Urine Blood (test code = 55066-8) 2+ NEGATIVE H [facility] Ruzvc9345-11-40 16:58:00* Test Item Value Reference Range Interpretation Comments Urine Color (test code = 5778-6) YELLOW YELLOW [facility] Psvrrce7627-42-91 16:58:00* Test Item Value Reference Range Interpretation Comments Urine Clarity (test code = 47206-9) CLEAR CLEAR [facility] Specific Bhqkyss8822-73-71 16:58:00 * Test Item Value Reference Range Interpretation Comments Urine Specific [place] (test code = 5811-5) 1.005 1.010-1.02 5 L [facility] dM0323-10-36 16:58:00* Test Item Value Reference Range Interpretation Comments Urine pH (test code = 88172-8) 6 5-7 [facility] Leukocyte Cdxdbgsu3786-33-00 16:58:00* Test Item Value Reference Range Interpretation Comments Urine Leukocyte Esterase (test code = 5799-2) NEGATIVE NEGATIVE [facility] Uypdpen3203-32-10 16:58:00* Test Item Value Reference Range Interpretation Comments Urine Nitrite (test code = 52081-4) NEGATIVE NEGATIVE [facility] Zhfadcm5553-81-80 16:58:00* Test Item Value Reference Range Interpretation Comments Urine Protein (test code = 5804-0) NEGATIVE NEGATIVE [facility] Glucose (UA)2018-05-04 16:58:00* Test Item Value Reference Range Interpretation Comments Urine Glucose (UA) (test code = 2349-9) NEGATIVE NEGATIVE [facility] Hnljrjs1738-99-38 16:58:00* Test Item Value Reference Range Interpretation Comments Urine Ketones (test code = 25311-4) NEGATIVE NEGATIVE [facility] Qjaqjebmxtfw6775-29-26 16:58:00* Test Item Value Reference Range Interpretation Comments Urine Urobilinogen (test code = 06323-5) 0.2 0.2-1 [facility] Mompssrez5755-69-66 16:58:00* Test Item Value Reference Range Interpretation Comments Urine Bilirubin (test code = 1978-6) NEGATIVE NEGATIVE [facility] Dmymx2773-88-60 16:58:00* Test Item Value Reference Range Interpretation Comments Urine Blood (test code = 12766-2) 2+ NEGATIVE H [facility] Arkai6515-23-61 16:58:00* Test Item Value Reference Range Interpretation Comments Urine Color (test code = 5778-6) YELLOW YELLOW [facility] Drijhpv3626-28-15 16:58:00* Test Item Value Reference Range Interpretation Comments Urine Clarity (test code = 63473-9) CLEAR CLEAR [facility] Specific Gexvkta7975-33-49 16:58:00 * Test Item Value Reference Range Interpretation Comments Urine Specific [place] (test code = 5811-5) 1.005 1.010-1.02 5 L [facility] gM7217-23-11 16:58:00* Test Item Value Reference Range Interpretation Comments Urine pH (test code = 97058-8) 6 5-7 [facility] Leukocyte Dakfzouc4119-88-71 16:58:00* Test Item Value Reference Range Interpretation Comments Urine Leukocyte Esterase (test code = 5799-2) NEGATIVE NEGATIVE [facility] Qsebdea8732-72-11 16:58:00* Test Item Value Reference Range Interpretation Comments Urine Nitrite (test code = 86791-5) NEGATIVE NEGATIVE [facility] Qdcxtoe0637-23-30 16:58:00* Test Item Value Reference Range Interpretation Comments Urine Protein (test code = 5804-0) NEGATIVE NEGATIVE [facility] Glucose (UA)2018-05-04 16:58:00* Test Item Value Reference Range Interpretation Comments Urine Glucose (UA) (test code = 2349-9) NEGATIVE NEGATIVE [facility] Sudpumx3401-27-99 16:58:00* Test Item Value Reference Range Interpretation Comments Urine Ketones (test code = 39859-8) NEGATIVE NEGATIVE [facility] Wxhbvjdzcihw9015-95-77 16:58:00* Test Item Value Reference Range Interpretation Comments Urine Urobilinogen (test code = 62166-7) 0.2 0.2-1 [facility] Bsmqmlmqh8754-12-98 16:58:00* Test Item Value Reference Range Interpretation Comments Urine Bilirubin (test code = 1978-6) NEGATIVE NEGATIVE [facility] Xeimd9089-16-78 16:58:00* Test Item Value Reference Range Interpretation Comments Urine Blood (test code = 21728-6) 2+ NEGATIVE H [facility] Chorionic Gonadotropin, Qual 2018-05-04 15:50:00* Test Item Value Reference Range Interpretation Comments Human Chorionic Gonadotropin, Qual (test code = 2118-8) NEGATIVE NEGATIVE [facility] Chorionic Gonadotropin, Qual 2018-05-04 15:50:00* Test Item Value Reference Range Interpretation Comments Human Chorionic Gonadotropin, Qual (test code = 8-8) NEGATIVE NEGATIVE [facility] Chorionic Gonadotropin, Qual 2018-05-04 15:50:00* Test Item Value Reference Range Interpretation Comments Human Chorionic Gonadotropin, Qual (test code = 8-8) NEGATIVE NEGATIVE [facility] Untjd2498-32-60 15:32:00* Test Item Value Reference Range Interpretation Comments Sodium Level (test code = 2951-2) 136 136-145 [facility] CenterPotassium Papqh6511-60-64 15:32:00* Test Item Value Reference Range Interpretation Comments Potassium Level (test code = 2823-3) 3.6 3.5-5.1 [facility] CenterChloride Nxrrh9363-14-52 15:32:00* Test Item Value Reference Range Interpretation Comments Chloride Level (test code = 2075-0) 104 98-107 [facility] CenterCarbon Dioxide Kqxkd7024-99-36 15:32:00* Test Item Value Reference Range Interpretation Comments Carbon Dioxide Level (test code = 2028-9) 20 22-29 L [facility] CenterAnion Tql7200-64-96 15:32:00* Test Item Value Reference Range Interpretation Comments Anion Gap (test code = 25595-7) 15.6 8-16 [facility] CenterBlood Urea Xclgajzr1700-25-82 15:32:00* Test Item Value Reference Range Interpretation Comments Blood Urea Nitrogen (test code = 3094-0) 5 7-26 L [facility] CenterCreatinine2019-02-11 15:32:00* Test Item Value Reference Range Interpretation Comments Creatinine (test code = 2160-0) 0.67 0.57-1.11 [facility] CenterBUN/Creatinine Tselx2635-11-92 15:32:00* Test Item Value Reference Range Interpretation Comments BUN/Creatinine Ratio (test code = 3097-3) 7 6-25 [facility] CenterEstimat Glomerular Filtration Rate 2018-05-04 15:32:00* Test Item Value Reference Range Interpretation Comments Estimat Glomerular Filtration Rate (test code = 903650878) > 60 >60 Ranges were taken from the National Kidney Disease Education Program and the [facility] Kid[facility] Foundation literature.Reference ranges:60 or greater: Rbfmui63-47 ( for 3 consecutive months): Chronic kidney disease 15 or less: Kidney failureMethodist [facility]field Medical CenterGlucose Aeyyj1123-42-49 15:32:00* Test Item Value Reference Range Interpretation Comments Glucose Level (test code = VIT0911) 95 74-118 [facility] CenterCalcium Hchwr9275-60-37 15:32:00* Test Item Value Reference Range Interpretation Comments Calcium Level (test code = 54600-8) 9.2 8.4-10.2 [facility] CenterMagnesium Ktyfe9586-32-50 15:32:00* Test Item Value Reference Range Interpretation Comments Magnesium Level (test code = 22770-1) 2.2 1.3-2.1 H [facility] CenterTotal Seznbxijm4720-75-99 15:32:00* Test Item Value Reference Range Interpretation Comments Total Bilirubin (test code = 1975-2) 0.3 0.2-1.2 [facility] CenterAspartate Amino Transf (AST/SGOT) 2018-05-04 15:32:00* Test Item Value Reference Range Interpretation Comments Aspartate Amino Transf (AST/SGOT) (test code = Aspartate Amino Transf (AST/SGOT)) 15 5-34 [facility] CenterAlanine Aminotransferase (ALT/SGPT) 2018-05-04 15:32:00* Test Item Value Reference Range Interpretation Comments Alanine Aminotransferase (ALT/SGPT) (test code = 1742-6) 9 0-55 [facility] CenterTotal Jbzukhz5409-15-57 15:32:00* Test Item Value Reference Range Interpretation Comments Total Protein (test code = 2885-2) 7.9 6.5-8.1 [facility] CenterAlbumin2019-02-11 15:32:00* Test Item Value Reference Range Interpretation Comments Albumin (test code = 1751-7) 4.1 3.5-5.0 [facility] CenterGlobulin2019-02-11 15:32:00* Test Item Value Reference Range Interpretation Comments Globulin (test code = 44277-7) 3.8 2.3-3.5 H [facility] CenterAlbumin/Globulin Rvmtv8473-70-17 15:32:00 * Test Item Value Reference Range Interpretation Comments Albumin/Globulin Ratio (test code = 1759-0) 1.1 0.8-2.0 [facility] CenterAlkaline Xjlybfcfhlv2831-74-08 15:32:00* Test Item Value Reference Range Interpretation Comments Alkaline Phosphatase (test code = 6768-6) 68 40-150 [facility] CenterAmylase Rxavq3459-63-04 15:32:00* Test Item Value Reference Range Interpretation Comments Amylase Level (test code = 1798-8) 50 25-125 [facility] CenterLipase2019-02-11 15:32:00* Test Item Value Reference Range Interpretation Comments Lipase (test code = 3040-3) 16 8-78 [facility] Pgxob6084-56-01 15:32:00* Test Item Value Reference Range Interpretation Comments Sodium Level (test code = 2951-2) 136 136-145 [facility] CenterPotassium Oswvu3359-68-97 15:32:00* Test Item Value Reference Range Interpretation Comments Potassium Level (test code = 2823-3) 3.6 3.5-5.1 [facility] CenterChloride Coefs4744-94-89 15:32:00* Test Item Value Reference Range Interpretation Comments Chloride Level (test code = 2075-0) 104 98-107 [facility] CenterCarbon Dioxide Morqg3838-31-01 15:32:00* Test Item Value Reference Range Interpretation Comments Carbon Dioxide Level (test code = 2028-9) 20 22-29 L [facility] CenterAnion Enm9100-30-71 15:32:00* Test Item Value Reference Range Interpretation Comments Anion Gap (test code = 08075-0) 15.6 8-16 [facility] CenterBlood Urea Zlvvucah0440-90-11 15:32:00* Test Item Value Reference Range Interpretation Comments Blood Urea Nitrogen (test code = 3094-0) 5 7-26 L [facility] CenterCreatinine2019-02-11 15:32:00* Test Item Value Reference Range Interpretation Comments Creatinine (test code = 2160-0) 0.67 0.57-1.11 [facility] CenterBUN/Creatinine Nervh1590-08-70 15:32:00* Test Item Value Reference Range Interpretation Comments BUN/Creatinine Ratio (test code = 3097-3) 7 6-25 [facility] CenterEstimat Glomerular Filtration Rate 2018-05-04 15:32:00* Test Item Value Reference Range Interpretation Comments Estimat Glomerular Filtration Rate (test code = 547760735) > 60 >60 Ranges were taken from the National Kidney Disease Education Program and the [facility] Kid[facility] Foundation literature.Reference ranges:60 or greater: Gudqdv76-70 ( for 3 consecutive months): Chronic kidney disease 15 or less: Kidney failureMethodist Mansfield Medical CenterGlucose Ibhst9006-13-04 15:32:00* Test Item Value Reference Range Interpretation Comments Glucose Level (test code = PRA3278) 95 74-118 [facility] CenterCalcium Glydt7179-81-02 15:32:00* Test Item Value Reference Range Interpretation Comments Calcium Level (test code = 51008-4) 9.2 8.4-10.2 [facility] CenterMagnesium Holha7324-26-99 15:32:00* Test Item Value Reference Range Interpretation Comments Magnesium Level (test code = 80491-2) 2.2 1.3-2.1 H [facility] CenterTotal Akaarhdsb2791-71-92 15:32:00* Test Item Value Reference Range Interpretation Comments Total Bilirubin (test code = 1975-2) 0.3 0.2-1.2 [facility] CenterAspartate Amino Transf (AST/SGOT) 2018-05-04 15:32:00* Test Item Value Reference Range Interpretation Comments Aspartate Amino Transf (AST/SGOT) (test code = Aspartate Amino Transf (AST/SGOT)) 15 5-34 [facility] CenterAlanine Aminotransferase (ALT/SGPT) 2018-05-04 15:32:00* Test Item Value Reference Range Interpretation Comments Alanine Aminotransferase (ALT/SGPT) (test code = 1742-6) 9 0-55 [facility] CenterTotal Xhtblzc3802-22-97 15:32:00* Test Item Value Reference Range Interpretation Comments Total Protein (test code = 2885-2) 7.9 6.5-8.1 [facility] CenterAlbumin2019-02-11 15:32:00* Test Item Value Reference Range Interpretation Comments Albumin (test code = 1751-7) 4.1 3.5-5.0 [facility] CenterGlobulin2019-02-11 15:32:00* Test Item Value Reference Range Interpretation Comments Globulin (test code = 93849-9) 3.8 2.3-3.5 H [facility] CenterAlbumin/Globulin Jvjtm6912-77-57 15:32:00 * Test Item Value Reference Range Interpretation Comments Albumin/Globulin Ratio (test code = 1759-0) 1.1 0.8-2.0 [facility] CenterAlkaline Kmugfifzzog8732-58-56 15:32:00* Test Item Value Reference Range Interpretation Comments Alkaline Phosphatase (test code = 6768-6) 68 40-150 [facility] CenterAmylase Wqgyd9859-32-71 15:32:00* Test Item Value Reference Range Interpretation Comments Amylase Level (test code = 1798-8) 50 25-125 [facility] CenterLipase2019-02-11 15:32:00* Test Item Value Reference Range Interpretation Comments Lipase (test code = 3040-3) 16 8-78 [facility] Rwmof7149-63-76 15:32:00* Test Item Value Reference Range Interpretation Comments Sodium Level (test code = 2951-2) 136 136-145 [facility] CenterPotassium Fbdmx2009-70-87 15:32:00* Test Item Value Reference Range Interpretation Comments Potassium Level (test code = 2823-3) 3.6 3.5-5.1 [facility] CenterChloride Haxwh3752-96-96 15:32:00* Test Item Value Reference Range Interpretation Comments Chloride Level (test code = 2075-0) 104 98-107 [facility] CenterCarbon Dioxide Whjyy7396-70-79 15:32:00* Test Item Value Reference Range Interpretation Comments Carbon Dioxide Level (test code = 2028-9) 20 22-29 L [facility] CenterAnion Mqo4839-57-44 15:32:00* Test Item Value Reference Range Interpretation Comments Anion Gap (test code = 96782-0) 15.6 8-16 [facility] CenterBlood Urea Irpukqca0682-22-95 15:32:00* Test Item Value Reference Range Interpretation Comments Blood Urea Nitrogen (test code = 3094-0) 5 7-26 L [facility] CenterCreatinine2019-02-11 15:32:00* Test Item Value Reference Range Interpretation Comments Creatinine (test code = 2160-0) 0.67 0.57-1.11 [facility] CenterBUN/Creatinine Lsepa1138-28-20 15:32:00* Test Item Value Reference Range Interpretation Comments BUN/Creatinine Ratio (test code = 3097-3) 7 6-25 [facility] CenterEstimat Glomerular Filtration Rate 2018-05-04 15:32:00* Test Item Value Reference Range Interpretation Comments Estimat Glomerular Filtration Rate (test code = 987305250) > 60 >60 Ranges were taken from the National Kidney Disease Education Program and the [facility] Kidney Foundation literature.Reference ranges:60 or greater: Iyugdd34-55 ( for 3 consecutive months): Chronic kidney disease 15 or less: Kidney failureMethodist Mansfield Medical CenterGlucose Viejp3426-42-26 15:32:00* Test Item Value Reference Range Interpretation Comments Glucose Level (test code = TAD7425) 95 74-118 [facility] CenterCalcium Uqiqt9737-32-42 15:32:00* Test Item Value Reference Range Interpretation Comments Calcium Level (test code = 96743-5) 9.2 8.4-10.2 [facility] CenterMagnesium Vqrtg4712-48-38 15:32:00* Test Item Value Reference Range Interpretation Comments Magnesium Level (test code = 30937-7) 2.2 1.3-2.1 H [facility] CenterTotal Cyupfvbkc0916-94-21 15:32:00* Test Item Value Reference Range Interpretation Comments Total Bilirubin (test code = 1975-2) 0.3 0.2-1.2 [facility] CenterAspartate Amino Transf (AST/SGOT) 2018-05-04 15:32:00* Test Item Value Reference Range Interpretation Comments Aspartate Amino Transf (AST/SGOT) (test code = Aspartate Amino Transf (AST/SGOT)) 15 5-34 [facility] CenterAlanine Aminotransferase (ALT/SGPT) 2018-05-04 15:32:00* Test Item Value Reference Range Interpretation Comments Alanine Aminotransferase (ALT/SGPT) (test code = 1742-6) 9 0-55 [facility] CenterTotal Sudxlln6649-22-12 15:32:00* Test Item Value Reference Range Interpretation Comments Total Protein (test code = 2885-2) 7.9 6.5-8.1 [facility] CenterAlbumin2019-02-11 15:32:00* Test Item Value Reference Range Interpretation Comments Albumin (test code = 1751-7) 4.1 3.5-5.0 [facility] CenterGlobulin2019-02-11 15:32:00* Test Item Value Reference Range Interpretation Comments Globulin (test code = 26932-5) 3.8 2.3-3.5 H [facility] CenterAlbumin/Globulin Tcehl5369-02-52 15:32:00 * Test Item Value Reference Range Interpretation Comments Albumin/Globulin Ratio (test code = 1759-0) 1.1 0.8-2.0 [facility] CenterAlkaline Mlpxdaothfs9858-29-51 15:32:00* Test Item Value Reference Range Interpretation Comments Alkaline Phosphatase (test code = 6768-6) 68 40-150 [facility] CenterAmylase Ltxks6085-82-24 15:32:00* Test Item Value Reference Range Interpretation Comments Amylase Level (test code = 1798-8) 50 25-125 [facility] CenterLipase2019-02-11 15:32:00* Test Item Value Reference Range Interpretation Comments Lipase (test code = 3040-3) 16 8-78 [facility]
== END 2019-10-25 21:37 | disposition left against medical advice (07) ==
LOC: FSED 20:49
DX: R07.9 Chest pain, unspecified (principal); R06.02 Shortness of breath; D64.9 Anemia, unspecified; F17.210 Nicotine dependence, cigarettes, uncomplicated
CPT/HCPCS: 99282

== ENCOUNTER 2019-10-28 14:36 | Observation (INO) | payer SELFPAY ==
[~2019-10-28] VITALS: Ht 175.3 cm; Wt 89.8 kg
[2019-10-28 15:48] LABS: BASOPHILS # (AUTO) 0.1 (0.0-0.1); BASOPHILS % 1.3 % (0.0-1.0); EOSINOPHILS % 0.1 % (0.0-6.0); LYMPHOCYTES # (AUTO) 1.2 (1.0-3.2); LYMPHOCYTES % 17.6 % (18.0-39.1); MEAN CORPUSCULAR HEMOGLOBIN 14.9 pg (28-32); MEAN CORPUSCULAR HGB CONC 23.2 g/dL (31-35); MEAN CORPUSCULAR VOLUME 64.1 fL (81-99); MONOCYTES # (AUTO) 0.6 (0.2-0.8); MONOCYTES % 8.1 % (4.4-11.3); NEUTROPHILS % 72.6 % (38.7-80.0); PLATELET COUNT 294 x10e3/uL (140-360); RED BLOOD COUNT 3.29 x10e6/uL (3.6-5.1); RED CELL DISTRIBUTION WIDTH 25.3 % (11.7-14.4)
[2019-10-28 15:54] LABS: HEMATOCRIT 21.1 % (34.2-44.1); HEMOGLOBIN 4.9 g/dL (12.0-16.0)
[2019-10-28 16:02] LABS: ALANINE AMINOTRANSFERASE 8 IU/L (0-55); ALBUMIN 4.1 g/dL (3.5-5.0); ALBUMIN/GLOBULIN RATIO 1.1 (0.8-2.0); ALKALINE PHOSPHATASE 62 IU/L (40-150); ANION GAP 11.7 mmol/L (8-16); BLOOD UREA NITROGEN 6 mg/dL (7-26); BUN/CREATININE RATIO 9 (6-25); CALCIUM 9.5 mg/dL (8.4-10.2); CARBON DIOXIDE 25 mmol/L (22-29); CHLORIDE 105 mmol/L (98-107); CREATINE KINASE 23 IU/L (29-168); CREATININE, SERUM 0.68 mg/dL (0.57-1.11); EST GLOMERULAR FILTRATION RATE > 60 ML/MIN (60-); GLUCOSE 109 mg/dL (74-118); POTASSIUM 3.7 mmol/L (3.5-5.1); SODIUM 138 mmol/L (136-145)
[2019-10-28] MEDS ORDERED: SODIUM CHLORIDE 0.9% 250ML 250 ML IV ONE (16:15)
--- NOTE | 2019-10-28 16:26 | Emergency Department Note ---
History of Present Illnes History of Present Illness Chief Complaint: COVID PUI History of Present Illness This is a 39 year old female arrives to the ED with complaints of chest pain and shortness of breath, describes it as pressure-like for several weeks now worsening. . Historian: Patient Arrival Mode: Car [employer] Operator Required: No Onset (how long ago): week(s) Radiation: Reports non-radiation Severity: mild Duration (how long): week(s) Timing of current episode: constant Progression: worsening Chronicity: new Past Medical/Family History Physician Review I have reviewed the patient's past medical and family history. Any updates have been documented here. Past Medical History Recent Fever: No Clinical Suspicion of Infectio: No New/Unexplained Change in Ment: No Past Medical History: Anemia Other Medical History: ANEMIA Other Surgery: R-ARM ARTERY Social History Smoking Cessation: Former smoker Counseling Performed: No Alcohol Use: None Any Illegal Drug Use: No Other Last Tetanus: UNKNOWN Any Pre-Existing Lines (PICC,: No Review of Systems Review of Systems Constitutional: Reports no symptoms, Reports malaise, Reports weakness EENTM: Reports no symptoms Cardiovascular: Reports as per HPI, Reports chest pain Respiratory: Reports no symptoms Gastrointestinal: Reports no symptoms Genitourinary: Reports no symptoms Musculoskeletal: Reports no symptoms Integumentary: Reports no symptoms Neurological: Reports no symptoms Psychological: Reports no symptoms Endocrine: Reports no symptoms Hematological/Lymphatic: Reports no symptoms Review of other systems: All other systems negative Physical Exam Related Data Allergies: Coded Allergies: No Known Allergies (Unverified , 04/01/19) Triage Vital Signs Vital Signs Date Time Temp Pulse Resp B/P (MAP) Pulse Ox O2 Delivery O2 Flow Rate FiO2 10/28/19 14:40 97.9 100 18 130/77 100 Room Air Vital signs reviewed: Yes Physical Exam CONSTITUTIONAL Constitutional: Present well-developed, Present well-nourished, Present ill appearing HENT HENT: Present normocephalic, Present atraumatic, Present oropharynx clear/moist, Present nose normal HENT L/R: Present left ext ear normal, Present right ext ear normal EYES Eyes: Reports PERRL, Reports conjunctivae normal NECK Neck: Present ROM normal PULMONARY Pulmonary: Present effort normal, Present breath sounds normal CARDIOVASCULAR Cardiovascular: Present regular rhythm, Present heart sounds normal, Present capillary refill normal, Present normal rate GASTROINTESTINAL Abdominal: Present soft, Present nontender, Present bowel sounds normal GENITOURINARY Genitourinary: Present exam deferred SKIN Skin: Present warm, Present dry MUSCULOSKELETAL Musculoskeletal: Present ROM normal NEUROLOGICAL Neurological: Present alert, Present oriented x 3, Present no gross motor or sensory deficits PSYCHOLOGICAL Psychological: Present mood/affect normal, Present judgement normal Results Laboratory Result Diagram: 10/28/19 1529 10/28/19 1529 Laboratory Laboratory Tests Test 10/28/19 15:56 10/28/19 15:29 White Blood Count 6.92 x10e3/uL (4.8-10.8) Red Blood Count 3.29 x10e6/uL (3.6-5.1) Hemoglobin 4.9 g/dL (12.0-16.0) Hematocrit 21.1 % (34.2-44.1) Mean Corpuscular Volume 64.1 fL (81-99) Mean Corpuscular Hemoglobin 14.9 pg (28-32) Mean Corpuscular Hemoglobin Concent 23.2 g/dL (31-35) Red Cell Distribution Width 25.3 % (11.7-14.4) Platelet Count 294 x10e3/uL (140-360) Neutrophils (%) (Auto) 72.6 % (38.7-80.0) Lymphocytes (%) (Auto) 17.6 % (18.0-39.1) Monocytes (%) (Auto) 8.1 % (4.4-11.3) Eosinophils (%) (Auto) 0.1 % (0.0-6.0) Basophils (%) (Auto) 1.3 % (0.0-1.0) Neutrophils # (Auto) 5.0 (2.1-6.9) Lymphocytes # (Auto) 1.2 (1.0-3.2) Monocytes # (Auto) 0.6 (0.2-0.8) Eosinophils # (Auto) 0.0 (0.0-0.4) Basophils # (Auto) 0.1 (0.0-0.1) Absolute Immature Granulocyte (auto 0.02 x10e3/uL (0-0.1) Sodium Level 138 mmol/L (136-145) Potassium Level 3.7 mmol/L (3.5-5.1) Chloride Level 105 mmol/L (98-107) Carbon Dioxide Level 25 mmol/L (22-29) Anion Gap 11.7 mmol/L (8-16) Blood Urea Nitrogen 6 mg/dL (7-26) Creatinine 0.68 mg/dL (0.57-1.11) Estimat Glomerular Filtration Rate > 60 ML/MIN (60-) BUN/Creatinine Ratio 9 (6-25) Glucose Level 109 mg/dL (74-118) Calcium Level 9.5 mg/dL (8.4-10.2) Total Bilirubin 0.4 mg/dL (0.2-1.2) Aspartate Amino Transf (AST/SGOT) 14 IU/L (5-34) Alanine Aminotransferase (ALT/SGPT) 8 IU/L (0-55) Alkaline Phosphatase 62 IU/L (40-150) Creatine Kinase 23 IU/L (29-168) Creatine Kinase MB 0.30 ng/mL (0-5.0) Troponin I < 0.001 ng/mL (0-0.300) Total Protein 8.0 g/dL (6.5-8.1) Albumin 4.1 g/dL (3.5-5.0) Globulin 3.9 g/dL (2.3-3.5) Albumin/Globulin Ratio 1.1 (0.8-2.0) Lab results reviewed: Yes Critical Care Time Total Critical Care Time (min): 35 Critical care time exclusive o: separately billable procedures Critcal care necessary due to: metabolic failure Assessment & Plan Medical Decision Making MDM 39-year-old female arrives to the ED with complaints of chest pressure, noted markedly anemic. A short history of fibroids Assessment & Plan Final Impression: (1) Anemia Depart Disposition: ADMITTED Last Vital Signs Date Time Temp Pulse Resp B/P (MAP) Pulse Ox O2 Delivery O2 Flow Rate FiO2 10/28/19 14:40 97.9 100 18 130/77 100 Room Air Home Meds Reported Medications Acetaminophen With Codeine (TYLENOL WITH CODEINE #3 TABLET) 1 Each Tablet, 300 MG PO PRN, TAB 01/20/16 STEPHEN MACIEL DO Oct 28, 2019 16:25
[2019-10-28 16:27] LABS: CLARITY,URINE CLEAR (CLEAR); COLOR,URINE YELLOW (YELLOW); LEUKOCYTE ESTERASE ,URINE NEGATIVE (NEGATIVE); NITRITE,URINE NEGATIVE (NEGATIVE); PROTEIN,URINE DIPSTICK NEGATIVE (NEGATIVE)
[2019-10-28 16:28] LABS: AMPHETAMINES SCREEN,URINE NEGATIVE (NEGATIVE); BENZODIAZEPINES SCREEN,URINE NEGATIVE (NEGATIVE); BILIRUBIN,URINE NEGATIVE (NEGATIVE); PHENCYCLIDINE SCREEN,URINE NEGATIVE (NEGATIVE); URINE UROBILINOGEN 0.2 mg/dL (0.2 - 1)
--- OUTSIDE RECORDS SUMMARY | 2019-10-28 16:34 | XMS REPORT | Continuity of Care Document ---
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 Name Role Phone NO, PCP PCP Unavailable Gaby YING Attphys Unavailable Latha BANEGAS Attphys Unavailable Payers Payer Name Policy Type Policy Number Effective Date Expiration Date S ource Self Pay NA [facility] Medicaid Pending NA [facility] Problems Condition Name Condition Details Condition Category Status Onset Date Resolution Date Last Treatment Date Treating Clinician Comments Source Severe anemia Severe anemia Problem Active 2015-07-23 00:00:00 [facility] Uterine leiomyoma Uterine fibroid Problem Active [facility] Vomiting Problem Active [facility] Acute chest pain Problem Active [facility] Left against medical advice Problem Active [facility] Allergies, Adverse Reactions, Alerts This patient has no known allergies or adverse reactions. Social History Social Habit Start Date Stop Date Quantity Comments Source Sex Assigned At 1980 00:00:00 1980 00:00:00 Female [facility] Medications Ordered Medication Name Filled Medication Name Start Date Stop Da te Current Medication? Ordering Clinician Indication Dosage Frequency Signature (SIG) Comments Components Source Acetaminophen With Codeine (Tylenol With Codeine #3 Ta blet) 1 Each TABLET Acetaminophen With Codeine (Tylenol With Codeine #3 Tablet) 1 Each TABLET Yes 300 As Needed [facility] Aspirin/Caffeine (Bc Powder Packet) 1 Each POWD.PACK A spirin/Caffeine (Bc Powder Packet) 1 Each POWD.PACK 2015-07-25 00:00:00 No 1 3X Weekly [facility] Vital Signs Vital Name Observation Time Observation Value Comments Source Body Temperature 2019-10-25 21:37:00 98.9 [degF] [facility] Weight 2019-10-25 20:25:00 198 [lb_av] [facility] BMI (Body Mass Index) 2019-10-25 20:25:00 29.2 kg/m2 [facility] Weight 2019-09-20 16:49:00 201 [lb_av] [facility] BMI (Body Mass Index) 2019-09-20 16:49:00 29.7 kg/m2 [facility] Procedures Procedure Date / Time Performed Performing Clinician [facility] e X-ray of chest, two views 2019-04-01 00:00:00 BRUNO OCASIO [facility] Encounters Start Date/Time End Date/Time [facility] ID Source 2019-10-25 20:49:00 2019-10-25 20:49:00 Registered Emergency Room [facility] [id number] [facility] 2019-09-20 17:08:00 2019-09-20 17:30:00 Departed Emergency Room [facility] [id number] [facility] 2019-05-16 12:30:00 2019-05-16 13:52:00 Departed Emergency Room [facility] [id number] [facility] 2019-04-01 11:48:00 2019-04-01 14:51:00 Departed Emergency Room 1 SUSHMA YING [facility] [id number] [facility] Patients [facility] 2018-10-03 14:18:00 2018-10-03 15:15:00 Departed Emergency Room [facility] [id number] [facility] 2018-10-01 15:35:00 2018-10-01 16:58:00 Departed Emergency Room [facility] [id number] [facility] 2018-05-04 17:31:00 2018-05-05 21:20:00 Discharged Inpatient (obs) 1 FAN BANEGAS [facility] [id number] [facility] Results Test Description Test Time Test Comments Results Result Comments Source CHEST 2 VIEWS 2019-04-01 14:23:00 [facility] [address] [address] Patient Name: DOMINIK MOREL MR #: [id number] : 1980 Age/Sex: 38/F Req #: [id number] Adm Physician: Ordered by: BRUNO OCASIO NP Report #: [id number] Location: ER Room/Bed: Procedure: [id number] DX/CHEST 2 VIEWS Exam Date: Exam Time: [...] 2:23 PM Dictated By: EDNA ZELAYA MD 1423 Transcribed By: XOCHITL HALL on 04/01/19 142 COPY TO: BRUNO OCASIO NP Hemoglobin 2018-05-05 20:20:00 Test Item Hemoglobin (test code = 35873-6) 8.3 12.0-16.0 L [facility]ematocrit2019-02-12 20:20:00* Test Item Value Reference Range Interpretation Comments Hematocrit (test code = 4544-3) 28.4 34.2-44.1 L [facility]Hemoglobin2019-02-12 20:20:00* Test Item Value Reference Range Interpretation Comments Hemoglobin (test code = 27811-7) 8.3 12.0-16.0 L [facility] HospitalHematocrit2019-02-12 20:20:00* Test Item Value Reference Range Interpretation Comments Hematocrit (test code = 4544-3) 28.4 34.2-44.1 L [facility] HospitalHemoglobin2019-02-12 20:20:00* Test Item Value Reference Range Interpretation Comments Hemoglobin (test code = 55611-4) 8.3 12.0-16.0 L [facility] HospitalHematocrit2019-02-12 20:20:00* Test Item Value Reference Range Interpretation Comments Hematocrit (test code = 4544-3) 28.4 34.2-44.1 L [facility] HospitalPlatelet Ggvessjx2882-79-80 07:26:00* Test Item Value Reference Range Interpretation Comments Platelet Estimate (test code = 33824-5) ADEQUATE [facility] HospitalPlatelet Morphology Spcmyhh0715-20-64 07:26:00* Test Item Value Reference Range Interpretation Comments Platelet Morphology Comment (test code = 98896-1) NORMAL [facility] HospitalHypochromasia2019-02-12 07:26:00* Test Item Value Reference Range Interpretation Comments Hypochromasia (test code = 728-6) MODERATE [facility] HospitalPoikilocytosis2019-02-12 07:26:00* Test Item Value Reference Range Interpretation Comments Poikilocytosis (test code = 779-9) SLIGHT [facility] HospitalAnisocytosis2019-02-12 07:26:00* Test Item Value Reference Range Interpretation Comments Anisocytosis (test code = 702-1) MODE [facility] HospitalRed Cell Morphology Bxeopcf5249-68-62 07:26:00* Test Item Value Reference Range Interpretation Comments Red Cell Morphology Comment (test code = 6742-1) ABNORMAL [facility] HospitalPlatelet Ygjnszwm7508-78-10 07:26:00* Test Item Value Reference Range Interpretation Comments Platelet Estimate (test code = 79957-0) ADEQUATE [facility] HospitalPlatelet Morphology Ifnjsbj2212-83-75 07:26:00* Test Item Value Reference Range Interpretation Comments Platelet Morphology Comment (test code = 97627-7) NORMAL [facility] HospitalHypochromasia2019-02-12 07:26:00* Test Item Value Reference Range Interpretation Comments Hypochromasia (test code = 728-6) MODERATE [facility] HospitalPoikilocytosis2019-02-12 07:26:00* Test Item Value Reference Range Interpretation Comments Poikilocytosis (test code = 779-9) SLIGHT [facility] HospitalAnisocytosis2019-02-12 07:26:00* Test Item Value Reference Range Interpretation Comments Anisocytosis (test code = 702-1) MODE [facility] HospitalRed Cell Morphology Sbhmyum6805-45-71 07:26:00* Test Item Value Reference Range Interpretation Comments Red Cell Morphology Comment (test code = 6742-1) ABNORMAL [facility] HospitalPlatelet Fatkoqfm4189-62-00 07:26:00* Test Item Value Reference Range Interpretation Comments Platelet Estimate (test code = 74906-5) ADEQUATE [facility] HospitalPlatelet Morphology Jjepguw3233-19-94 07:26:00* Test Item Value Reference Range Interpretation Comments Platelet Morphology Comment (test code = 32615-8) NORMAL [facility] HospitalHypochromasia2019-02-12 07:26:00* Test Item Value Reference Range Interpretation Comments Hypochromasia (test code = 728-6) MODERATE [facility] HospitalPoikilocytosis2019-02-12 07:26:00* Test Item Value Reference Range Interpretation Comments Poikilocytosis (test code = 779-9) SLIGHT [facility] HospitalAnisocytosis2019-02-12 07:26:00* Test Item Value Reference Range Interpretation Comments Anisocytosis (test code = 702-1) MODE [facility] HospitalRed Cell Morphology Mywdcod4001-41-09 07:26:00* Test Item Value Reference Range Interpretation Comments Red Cell Morphology Comment (test code = 6742-1) ABNORMAL [facility] HospitalWhite Blood Dtvfb9403-48-59 05:40:00* Test Item Value Reference Range Interpretation Comments White Blood Count (test code = 6690-2) 8.20 4.8-10.8 [facility] HospitalRed Blood Waspn3357-72-55 05:40:00* Test Item Value Reference Range Interpretation Comments Red Blood Count (test code = 789-8) 3.24 3.6-5.1 L [facility] HospitalMean Corpuscular Wiouly5472-14-56 05:40:00* Test Item Value Reference Range Interpretation Comments Mean Corpuscular Volume (test code = 787-2) 70.4 81-99 L VERIFIED PREVIOUS RESULTSSouth [place] [facility] HospitalMean Corpuscular Jsrukgpbtq5719-73-19 05:40:00* Test Item Value Reference Range Interpretation Comments Mean Corpuscular Hemoglobin (test code = 785-6) 19.1 28-32 L [facility] HospitalMean Corpuscular Hemoglobin Concent 2018-05-05 05:40:00* Test Item Value Reference Range Interpretation Comments Mean Corpuscular Hemoglobin Concent (test code = 786-4) 27.2 31-35 L [facility] HospitalRed Cell Distribution Pbypb7778-42-66 05:40:00* Test Item Value Reference Range Interpretation Comments Red Cell Distribution Width (test code = 53323-4) 28.1 11.7 -14.4 H [facility] HospitalPlatelet Itbqo7614-03-20 05:40:00* Test Item Value Reference Range Interpretation Comments Platelet Count (test code = 777-3) 174 140-360 [facility] HospitalNeutrophils (%) (Auto)2018-05-05 05:40:00 * Test Item Value Reference Range Interpretation Comments Neutrophils (%) (Auto) (test code = 28163-6) 65.5 38.7-80.0 [facility] HospitalLymphocytes (%) (Auto)2018-05-05 05:40:00 * Test Item Value Reference Range Interpretation Comments Lymphocytes (%) (Auto) (test code = 736-9) 18.9 18.0-39.1 [facility] HospitalMonocytes (%) (Auto)2018-05-05 05:40:00* Test Item Value Reference Range Interpretation Comments Monocytes (%) (Auto) (test code = 5905-5) 12.2 4.4-11.3 H [facility] HospitalEosinophils (%) (Auto)2018-05-05 05:40:00 * Test Item Value Reference Range Interpretation Comments Eosinophils (%) (Auto) (test code = 713-8) 2.1 0.0-6.0 [facility] HospitalBasophils (%) (Auto)2018-05-05 05:40:00* Test Item Value Reference Range Interpretation Comments Basophils (%) (Auto) (test code = 706-2) 1.1 0.0-1.0 H [facility] HospitalIM GRANULOCYTES %2018-05-05 05:40:00* Test Item Value Reference Range Interpretation Comments IM GRANULOCYTES % (test code = IM GRANULOCYTES %) 0.2 0.0- 1.0 [facility] HospitalNeutrophils # (Auto)2018-05-05 05:40:00* Test Item Value Reference Range Interpretation Comments Neutrophils # (Auto) (test code = 751-8) 5.4 2.1-6.9 [facility] HospitalLymphocytes # (Auto)2018-05-05 05:40:00* Test Item Value Reference Range Interpretation Comments Lymphocytes # (Auto) (test code = 80072-7) 1.6 1.0-3.2 [facility] HospitalMonocytes # (Auto)2018-05-05 05:40:00* Test Item Value Reference Range Interpretation Comments Monocytes # (Auto) (test code = 742-7) 1.0 0.2-0.8 H [facility] HospitalEosinophils # (Auto)2018-05-05 05:40:00* Test Item Value Reference Range Interpretation Comments Eosinophils # (Auto) (test code = 711-2) 0.2 0.0-0.4 [facility] HospitalBasophils # (Auto)2018-05-05 05:40:00* Test Item Value Reference Range Interpretation Comments Basophils # (Auto) (test code = 704-7) 0.1 0.0-0.1 [facility] HospitalAbsolute Immature Granulocyte (auto 2018-05-05 05:40:00* Test Item Value Reference Range Interpretation Comments Absolute Immature Granulocyte (auto (lois t code = Absolute Immature Granulocyte (auto) 0.02 0-0.1 [facility] HospitalWhite Blood [id number] 05:40:00* Test Item Value Reference Range Interpretation Comments White Blood Count (test code = 6690-2) 8.20 4.8-10.8 [facility] HospitalRed Blood Llilj5707-21-84 05:40:00* Test Item Value Reference Range Interpretation Comments Red Blood Count (test code = 789-8) 3.24 3.6-5.1 L [facility] HospitalMean Corpuscular Npjkvq8455-52-96 05:40:00* Test Item Value Reference Range Interpretation Comments Mean Corpuscular Volume (test code = 787-2) 70.4 81-99 L VERIFIED PREVIOUS RESULTSSouth [facility] HospitalMean Corpuscular Ivmbsvbgrz6705-03-55 05:40:00* Test Item Value Reference Range Interpretation Comments Mean Corpuscular Hemoglobin (test code = 785-6) 19.1 28-32 L [facility] HospitalMean Corpuscular Hemoglobin Concent 2018-05-05 05:40:00* Test Item Value Reference Range Interpretation Comments Mean Corpuscular Hemoglobin Concent (test code = 786-4) 27.2 31-35 L [facility] HospitalRed Cell Distribution Syqgw9583-35-34 05:40:00* Test Item Value Reference Range Interpretation Comments Red Cell Distribution Width (test code = 78971-8) 28.1 11.7 -14.4 H [facility] HospitalPlatelet Hekqn9171-34-47 05:40:00* Test Item Value Reference Range Interpretation Comments Platelet Count (test code = 777-3) 174 140-360 [facility] HospitalNeutrophils (%) (Auto)2018-05-05 05:40:00 * Test Item Value Reference Range Interpretation Comments Neutrophils (%) (Auto) (test code = 64337-4) 65.5 38.7-80.0 [facility] HospitalLymphocytes (%) (Auto)2018-05-05 05:40:00 * Test Item Value Reference Range Interpretation Comments Lymphocytes (%) (Auto) (test code = 736-9) 18.9 18.0-39.1 [facility] HospitalMonocytes (%) (Auto)2018-05-05 05:40:00* Test Item Value Reference Range Interpretation Comments Monocytes (%) (Auto) (test code = 5905-5) 12.2 4.4-11.3 H [facility] HospitalEosinophils (%) (Auto)2018-05-05 05:40:00 * Test Item Value Reference Range Interpretation Comments Eosinophils (%) (Auto) (test code = 713-8) 2.1 0.0-6.0 [facility] HospitalBasophils (%) (Auto)2018-05-05 05:40:00* Test Item Value Reference Range Interpretation Comments Basophils (%) (Auto) (test code = 706-2) 1.1 0.0-1.0 H [facility] HospitalIM GRANULOCYTES %2018-05-05 05:40:00* Test Item Value Reference Range Interpretation Comments IM GRANULOCYTES % (test code = IM GRANULOCYTES %) 0.2 0.0- 1.0 [facility] HospitalNeutrophils # (Auto)2018-05-05 05:40:00* Test Item Value Reference Range Interpretation Comments Neutrophils # (Auto) (test code = 751-8) 5.4 2.1-6.9 [facility] HospitalLymphocytes # (Auto)2018-05-05 05:40:00* Test Item Value Reference Range Interpretation Comments Lymphocytes # (Auto) (test code = 61094-0) 1.6 1.0-3.2 [facility] HospitalMonocytes # (Auto)2018-05-05 05:40:00* Test Item Value Reference Range Interpretation Comments Monocytes # (Auto) (test code = 742-7) 1.0 0.2-0.8 H [facility] HospitalEosinophils # (Auto)2018-05-05 05:40:00* Test Item Value Reference Range Interpretation Comments Eosinophils # (Auto) (test code = 711-2) 0.2 0.0-0.4 [facility] HospitalBasophils # (Auto)2018-05-05 05:40:00* Test Item Value Reference Range Interpretation Comments Basophils # (Auto) (test code = 704-7) 0.1 0.0-0.1 [facility] HospitalAbsolute Immature Granulocyte (auto 2018-05-05 05:40:00* Test Item Value Reference Range Interpretation Comments Absolute Immature Granulocyte (auto (lois t code = Absolute Immature Granulocyte (auto) 0.02 0-0.1 [facility] HospitalWhite Blood Epgnm1878-81-54 05:40:00* Test Item Value Reference Range Interpretation Comments White Blood Count (test code = 6690-2) 8.20 4.8-10.8 [facility] HospitalRed Blood Xtxqv4482-42-08 05:40:00* Test Item Value Reference Range Interpretation Comments Red Blood Count (test code = 789-8) 3.24 3.6-5.1 L [facility] HospitalMean Corpuscular Oowfhr4903-31-82 05:40:00* Test Item Value Reference Range Interpretation Comments Mean Corpuscular Volume (test code = 787-2) 70.4 81-99 L VERIFIED PREVIOUS RESULTSSouth [facility] HospitalMean Corpuscular Hgmymucvpe6170-76-64 05:40:00* Test Item Value Reference Range Interpretation Comments Mean Corpuscular Hemoglobin (test code = 785-6) 19.1 28-32 L [facility] HospitalMean Corpuscular Hemoglobin Concent 2018-05-05 05:40:00* Test Item Value Reference Range Interpretation Comments Mean Corpuscular Hemoglobin Concent (test code = 786-4) 27.2 31-35 L [facility] HospitalRed Cell Distribution Rpjlf3412-58-77 05:40:00* Test Item Value Reference Range Interpretation Comments Red Cell Distribution Width (test code = 72979-5) 28.1 11.7 -14.4 H [facility] HospitalPlatelet Dscrk8373-97-01 05:40:00* Test Item Value Reference Range Interpretation Comments Platelet Count (test code = 777-3) 174 140-360 [facility] HospitalNeutrophils (%) (Auto)2018-05-05 05:40:00 * Test Item Value Reference Range Interpretation Comments Neutrophils (%) (Auto) (test code = 86226-4) 65.5 38.7-80.0 [facility] HospitalLymphocytes (%) (Auto)2018-05-05 05:40:00 * Test Item Value Reference Range Interpretation Comments Lymphocytes (%) (Auto) (test code = 736-9) 18.9 18.0-39.1 [facility] HospitalMonocytes (%) (Auto)2018-05-05 05:40:00* Test Item Value Reference Range Interpretation Comments Monocytes (%) (Auto) (test code = 5905-5) 12.2 4.4-11.3 H [facility] HospitalEosinophils (%) (Auto)2018-05-05 05:40:00 * Test Item Value Reference Range Interpretation Comments Eosinophils (%) (Auto) (test code = 713-8) 2.1 0.0-6.0 [facility] HospitalBasophils (%) (Auto)2018-05-05 05:40:00* Test Item Value Reference Range Interpretation Comments Basophils (%) (Auto) (test code = 706-2) 1.1 0.0-1.0 H [facility] HospitalIM GRANULOCYTES %2018-05-05 05:40:00* Test Item Value Reference Range Interpretation Comments IM GRANULOCYTES % (test code = IM GRANULOCYTES %) 0.2 0.0- 1.0 [facility] HospitalNeutrophils # (Auto)2018-05-05 05:40:00* Test Item Value Reference Range Interpretation Comments Neutrophils # (Auto) (test code = 751-8) 5.4 2.1-6.9 [facility] HospitalLymphocytes # (Auto)2018-05-05 05:40:00* Test Item Value Reference Range Interpretation Comments Lymphocytes # (Auto) (test code = 78180-7) 1.6 1.0-3.2 [facility] HospitalMonocytes # (Auto)2018-05-05 05:40:00* Test Item Value Reference Range Interpretation Comments Monocytes # (Auto) (test code = 742-7) 1.0 0.2-0.8 H [facility] HospitalEosinophils # (Auto)2018-05-05 05:40:00* Test Item Value Reference Range Interpretation Comments Eosinophils # (Auto) (test code = 711-2) 0.2 0.0-0.4 [facility] HospitalBasophils # (Auto)2018-05-05 05:40:00* Test Item Value Reference Range Interpretation Comments Basophils # (Auto) (test code = 704-7) 0.1 0.0-0.1 [facility] HospitalAbsolute Immature Granulocyte (auto 2018-05-05 05:40:00* Test Item Value Reference Range Interpretation Comments Absolute Immature Granulocyte (auto (lois t code = Absolute Immature Granulocyte (auto) 0.02 0-0.1 [facility] HospitalUrine [id number] 17:10:00* Test Item Value Reference Range Interpretation Comments Urine WBC (test code = 5821-4) NONE 0-5 [facility] HospitalUrine [id number] 17:10:00* Test Item Value Reference Range Interpretation Comments Urine RBC (test code = 62978-0) 6-10 0-5 H [facility] HospitalUrine Tiroamsf5978-42-62 17:10:00* Test Item Value Reference Range Interpretation Comments Urine Bacteria (test code = 59206-7) MODERATE NONE H [facility] HospitalUrine Epithelial Oclhg6119-42-29 17:10:00 * Test Item Value Reference Range Interpretation Comments Urine Epithelial Cells (test code = 58732-6) MODERATE NONE [facility] HospitalUrine [id number] 17:10:00* Test Item Value Reference Range Interpretation Comments Urine WBC (test code = 5821-4) NONE 0-5 [facility] HospitalUrine [id number] 17:10:00* Test Item Value Reference Range Interpretation Comments Urine RBC (test code = 06659-9) 6-10 0-5 H [facility] HospitalUrine Mwfoxyep5399-89-22 17:10:00* Test Item Value Reference Range Interpretation Comments Urine Bacteria (test code = 26279-8) MODERATE NONE H [facility] HospitalUrine Epithelial Tkghb6014-49-45 17:10:00 * Test Item Value Reference Range Interpretation Comments Urine Epithelial Cells (test code = 27093-9) MODERATE NONE [facility] HospitalUrine [id number] 17:10:00* Test Item Value Reference Range Interpretation Comments Urine WBC (test code = 5821-4) NONE 0-5 [facility] HospitalUrine [id number] 17:10:00* Test Item Value Reference Range Interpretation Comments Urine RBC (test code = 61267-5) 6-10 0-5 H [facility] HospitalUrine Svfixecm9795-59-80 17:10:00* Test Item Value Reference Range Interpretation Comments Urine Bacteria (test code = 20988-0) MODERATE NONE H [facility] HospitalUrine Epithelial Wkhbg9527-36-24 17:10:00 * Test Item Value Reference Range Interpretation Comments Urine Epithelial Cells (test code = 57317-5) MODERATE NONE [facility] HospitalCT ABDOMEN/PELVIS [id number] 17:05:00 [facility] [address] [address] Patient Name: DOMINIK MOREL MR #: [id number] : 3 Age/Sex: 37/F Req #: [id number] Adm Physician: Ordered by: BRUNO OCASIO NP Report #: [id number] Location: ER Room/Bed: Procedure: [id number] C T/CT ABDOMEN/PELVIS W Exam Date: Exam [...] the en dometrial canal Signed by: Dr. Dayv Pozo M.D. on 05/04/2018 5:10 PM Dictated By: DAVY POZO MD 09 Transcribed By: DARIN on 05/04/181709 COPY TO: BRUNO OCASIO [employer]ER Urine Uddgv5197-46-91 16:58:00* Test Item Value Reference Range Interpretation Comments Urine Color (test code = 5778-6) YELLOW YELLOW [facility] HospitalUrine [id number] 16:58:00* Test Item Value Reference Range Interpretation Comments Urine Clarity (test code = 05061-2) CLEAR CLEAR [facility] HospitalUrine Specific Knhrxqq9575-44-28 16:58:00 * Test Item Value Reference Range Interpretation Comments Urine Specific [place] (test code = 5811-5) 1.005 1.010-1.02 5 L [facility] HospitalUrine [id number] 16:58:00* Test Item Value Reference Range Interpretation Comments Urine pH (test code = 00493-9) 6 5-7 [facility] HospitalUrine Leukocyte Eahkskof5029-60-38 16:58:00* Test Item Value Reference Range Interpretation Comments Urine Leukocyte Esterase (test code = 5799-2) NEGATIVE NEGATIVE [facility] HospitalUrine Hcgrhzl6333-97-84 16:58:00* Test Item Value Reference Range Interpretation Comments Urine Nitrite (test code = 91950-0) NEGATIVE NEGATIVE [facility] HospitalUrine Hqzhvzy3644-98-26 16:58:00* Test Item Value Reference Range Interpretation Comments Urine Protein (test code = 5804-0) NEGATIVE NEGATIVE [facility] ([facility])2018-05-04 16:58:00* Test Item Value Reference Range Interpretation Comments Urine Glucose (UA) (test code = 2349-9) NEGATIVE NEGATIVE [facility] Hziwawx4064-32-32 16:58:00* Test Item Value Reference Range Interpretation Comments Urine Ketones (test code = 60992-5) NEGATIVE NEGATIVE [facility] Ptsawjpjtmeh6232-86-70 16:58:00* Test Item Value Reference Range Interpretation Comments Urine Urobilinogen (test code = 25526-0) 0.2 0.2-1 [facility] Xppmfpjgg4182-44-69 16:58:00* Test Item Value Reference Range Interpretation Comments Urine Bilirubin (test code = 1978-6) NEGATIVE NEGATIVE [facility] Swoqk5131-63-23 16:58:00* Test Item Value Reference Range Interpretation Comments Urine Blood (test code = 07991-5) 2+ NEGATIVE H [facility] Nidsi0512-38-73 16:58:00* Test Item Value Reference Range Interpretation Comments Urine Color (test code = 5778-6) YELLOW YELLOW [facility] Nzcoydp0652-58-79 16:58:00* Test Item Value Reference Range Interpretation Comments Urine Clarity (test code = 54028-6) CLEAR CLEAR [facility] Specific Dsttdck6585-66-23 16:58:00 * Test Item Value Reference Range Interpretation Comments Urine Specific [place] (test code = 5811-5) 1.005 1.010-1.02 5 L [facility] cK1717-89-37 16:58:00* Test Item Value Reference Range Interpretation Comments Urine pH (test code = 86101-1) 6 5-7 [facility] Leukocyte Jdtlnojt3432-50-62 16:58:00* Test Item Value Reference Range Interpretation Comments Urine Leukocyte Esterase (test code = 5799-2) NEGATIVE NEGATIVE [facility] Pxpcnkr2364-94-18 16:58:00* Test Item Value Reference Range Interpretation Comments Urine Nitrite (test code = 40371-1) NEGATIVE NEGATIVE [facility] Wahicfa3018-29-27 16:58:00* Test Item Value Reference Range Interpretation Comments Urine Protein (test code = 5804-0) NEGATIVE NEGATIVE [facility] Glucose (UA)2018-05-04 16:58:00* Test Item Value Reference Range Interpretation Comments Urine Glucose (UA) (test code = 2349-9) NEGATIVE NEGATIVE [facility] Mvcjjdx2185-44-85 16:58:00* Test Item Value Reference Range Interpretation Comments Urine Ketones (test code = 86109-0) NEGATIVE NEGATIVE [facility] Iknxaeevorpz5517-96-96 16:58:00* Test Item Value Reference Range Interpretation Comments Urine Urobilinogen (test code = 56324-9) 0.2 0.2-1 [facility] Tvkdblkfo6507-32-53 16:58:00* Test Item Value Reference Range Interpretation Comments Urine Bilirubin (test code = 1978-6) NEGATIVE NEGATIVE [facility] Xtsof2633-59-53 16:58:00* Test Item Value Reference Range Interpretation Comments Urine Blood (test code = 03560-2) 2+ NEGATIVE H [facility] Zbidj3522-01-08 16:58:00* Test Item Value Reference Range Interpretation Comments Urine Color (test code = 5778-6) YELLOW YELLOW [facility] Kklergf6613-66-03 16:58:00* Test Item Value Reference Range Interpretation Comments Urine Clarity (test code = 29909-4) CLEAR CLEAR [facility] Specific Dimslcs6736-99-02 16:58:00 * Test Item Value Reference Range Interpretation Comments Urine Specific [place] (test code = 5811-5) 1.005 1.010-1.02 5 L [facility] nC6217-71-14 16:58:00* Test Item Value Reference Range Interpretation Comments Urine pH (test code = 05087-1) 6 5-7 [facility] Leukocyte Jjigabce6660-79-99 16:58:00* Test Item Value Reference Range Interpretation Comments Urine Leukocyte Esterase (test code = 5799-2) NEGATIVE NEGATIVE [facility] Odlgwvi3012-89-47 16:58:00* Test Item Value Reference Range Interpretation Comments Urine Nitrite (test code = 29581-3) NEGATIVE NEGATIVE [facility] Ckcwims8490-23-76 16:58:00* Test Item Value Reference Range Interpretation Comments Urine Protein (test code = 5804-0) NEGATIVE NEGATIVE [facility] Glucose (UA)2018-05-04 16:58:00* Test Item Value Reference Range Interpretation Comments Urine Glucose (UA) (test code = 2349-9) NEGATIVE NEGATIVE [facility] Xajxekn7952-40-83 16:58:00* Test Item Value Reference Range Interpretation Comments Urine Ketones (test code = 93770-4) NEGATIVE NEGATIVE [facility] Wmcmklnsyist3887-94-25 16:58:00* Test Item Value Reference Range Interpretation Comments Urine Urobilinogen (test code = 03940-6) 0.2 0.2-1 [facility] Cjnnetupd1400-88-46 16:58:00* Test Item Value Reference Range Interpretation Comments Urine Bilirubin (test code = 1978-6) NEGATIVE NEGATIVE [facility] Yezit1589-67-03 16:58:00* Test Item Value Reference Range Interpretation Comments Urine Blood (test code = 83044-6) 2+ NEGATIVE H [facility] Chorionic Gonadotropin, Qual 2018-05-04 15:50:00* Test Item Value Reference Range Interpretation Comments Human Chorionic Gonadotropin, Qual (test code = 2118-8) NEGATIVE NEGATIVE [facility] Chorionic Gonadotropin, Qual 2018-05-04 15:50:00* Test Item Value Reference Range Interpretation Comments Human Chorionic Gonadotropin, Qual (test code = 2118-8) NEGATIVE NEGATIVE [facility] Chorionic Gonadotropin, Qual 2018-05-04 15:50:00* Test Item Value Reference Range Interpretation Comments Human Chorionic Gonadotropin, Qual (test code = 2118-8) [facility] Fatwe8597-71-92 15:32:00* Test Item Value Reference Range Interpretation Comments Sodium Level (test code = 2951-2) 136 136-145 [facility]pt[facility]assium Pomnd6028-28-88 15:32:00* Test Item Value Reference Range Interpretation Comments Potassium Level (test code = 2823-3) 3.6 3.5-5.1 [facility] HospitalChloride Tkkdz7701-68-84 15:32:00* Test Item Value Reference Range Interpretation Comments Chloride Level (test code = 2075-0) 104 98-107 [facility] HospitalCarbon Dioxide Smxdk4549-06-81 15:32:00* Test Item Value Reference Range Interpretation Comments Carbon Dioxide Level (test code = 2028-9) 20 22-29 L [facility] HospitalAnion Bgh9513-67-87 15:32:00* Test Item Value Reference Range Interpretation Comments Anion Gap (test code = 76569-2) 15.6 8-16 [facility] HospitalBlood Urea Ywbuglbi1221-02-55 15:32:00* Test Item Value Reference Range Interpretation Comments Blood Urea Nitrogen (test code = 3094-0) 5 7-26 L [facility] HospitalCreatinine2019-02-11 15:32:00* Test Item Value Reference Range Interpretation Comments Creatinine (test code = 2160-0) 0.67 0.57-1.11 [facility] HospitalBUN/Creatinine Lpfeu1622-11-39 15:32:00* Test Item Value Reference Range Interpretation Comments BUN/Creatinine Ratio (test code = 3097-3) 7 6-25 [facility] HospitalEstimat Glomerular Filtration Rate 2018-05-04 15:32:00* Test Item Value Reference Range Interpretation Comments Estimat Glomerular Filtration Rate (test code = 724243021) > 60 >60 Ranges were taken from the National Kidney Disease Education Program and the [facility] literature.Reference ranges:60 or greater: Vlsvvh52-84 ( for 3 consecutive months): Chronic kidney disease 15 or less: Kidney failureSouth [facility] Spine & Surgical HospitalGlucose Dimnf0540-27-66 15:32:00* Test Item Value Reference Range Interpretation Comments Glucose Level (test code = JPU1767) 95 74-118 [facility] HospitalCalcium Jjamx8451-24-05 15:32:00* Test Item Value Reference Range Interpretation Comments Calcium Level (test code = 13294-7) 9.2 8.4-10.2 [facility] HospitalMagnesium Ddqxa1928-35-66 15:32:00* Test Item Value Reference Range Interpretation Comments Magnesium Level (test code = 26812-3) 2.2 1.3-2.1 H [facility] HospitalTotal Bodzvfhnr2276-33-50 15:32:00* Test Item Value Reference Range Interpretation Comments Total Bilirubin (test code = 1975-2) 0.3 0.2-1.2 [facility] HospitalAspartate Amino Transf (AST/SGOT) 2018-05-04 15:32:00* Test Item Value Reference Range Interpretation Comments Aspartate Amino Transf (AST/SGOT) (test code = Aspartate Amino Transf (AST/SGOT)) 15 5-34 [facility] HospitalAlanine Aminotransferase (ALT/SGPT) 2018-05-04 15:32:00* Test Item Value Reference Range Interpretation Comments Alanine Aminotransferase (ALT/SGPT) (test code = 1742-6) 9 0-55 [facility] HospitalTotal Klobfdm3637-80-91 15:32:00* Test Item Value Reference Range Interpretation Comments Total Protein (test code = 2885-2) 7.9 6.5-8.1 [facility] HospitalAlbumin2019-02-11 15:32:00* Test Item Value Reference Range Interpretation Comments Albumin (test code = 1751-7) 4.1 3.5-5.0 [facility] HospitalGlobulin2019-02-11 15:32:00* Test Item Value Reference Range Interpretation Comments Globulin (test code = 34852-0) 3.8 2.3-3.5 H [facility] HospitalAlbumin/Globulin Wrizs0887-57-51 15:32:00 * Test Item Value Reference Range Interpretation Comments Albumin/Globulin Ratio (test code = 1759-0) 1.1 0.8-2.0 [facility] HospitalAlkaline Vucmponrdks1676-04-59 15:32:00* Test Item Value Reference Range Interpretation Comments Alkaline Phosphatase (test code = 6768-6) 68 40-150 [facility] HospitalAmylase Djpoi7036-08-07 15:32:00* Test Item Value Reference Range Interpretation Comments Amylase Level (test code = 1798-8) 50 25-125 [facility] HospitalLipase2019-02-11 15:32:00* Test Item Value Reference Range Interpretation Comments Lipase (test code = 3040-3) 16 8-78 [facility] Fekxt8150-55-54 15:32:00* Test Item Value Reference Range Interpretation Comments Sodium Level (test code = 2951-2) 136 136-145 [facility] HospitalPotassium Fuigs1780-51-24 15:32:00* Test Item Value Reference Range Interpretation Comments Potassium Level (test code = 2823-3) 3.6 3.5-5.1 [facility] HospitalChloride Rgnxr7638-63-17 15:32:00* Test Item Value Reference Range Interpretation Comments Chloride Level (test code = 2075-0) 104 98-107 [facility] HospitalCarbon Dioxide Enomo5620-30-58 15:32:00* Test Item Value Reference Range Interpretation Comments Carbon Dioxide Level (test code = 2028-9) 20 22-29 L [facility] HospitalAnion Xby9111-13-51 15:32:00* Test Item Value Reference Range Interpretation Comments Anion Gap (test code = 19646-8) 15.6 8-16 [facility] HospitalBlood Urea Gvnccyks8391-10-43 15:32:00* Test Item Value Reference Range Interpretation Comments Blood Urea Nitrogen (test code = 3094-0) 5 7-26 L [facility] HospitalCreatinine2019-02-11 15:32:00* Test Item Value Reference Range Interpretation Comments Creatinine (test code = 2160-0) 0.67 0.57-1.11 [facility] HospitalBUN/Creatinine Hovqn1588-95-71 15:32:00* Test Item Value Reference Range Interpretation Comments BUN/Creatinine Ratio (test code = 3097-3) 7 6-25 [facility] HospitalEstimat Glomerular Filtration Rate 2018-05-04 15:32:00* Test Item Value Reference Range Interpretation Comments Estimat Glomerular Filtration Rate (test code = 553753168) > 60 >60 Ranges were taken from the National Kidney Disease Education Program and the [facility] literature.Reference ranges:60 or greater: Ialuul21-98 ( for 3 consecutive months): Chronic kidney disease 15 or less: Kidney failureSouth [facility] Spine & Surgical HospitalGlucose Ihpuf8091-01-89 15:32:00* Test Item Value Reference Range Interpretation Comments Glucose Level (test code = LFL0763) 95 74-118 [facility] HospitalCalcium Wwtsj4697-02-06 15:32:00* Test Item Value Reference Range Interpretation Comments Calcium Level (test code = 88646-6) 9.2 8.4-10.2 [facility] HospitalMagnesium Nnuxq1154-40-84 15:32:00* Test Item Value Reference Range Interpretation Comments Magnesium Level (test code = 04073-7) 2.2 1.3-2.1 H [facility] HospitalTotal Mrhvrnwja4696-94-09 15:32:00* Test Item Value Reference Range Interpretation Comments Total Bilirubin (test code = 1975-2) 0.3 0.2-1.2 [facility] HospitalAspartate Amino Transf (AST/SGOT) 2018-05-04 15:32:00* Test Item Value Reference Range Interpretation Comments Aspartate Amino Transf (AST/SGOT) (test code = Aspartate Amino Transf (AST/SGOT)) 15 5-34 [facility] HospitalAlanine Aminotransferase (ALT/SGPT) 2018-05-04 15:32:00* Test Item Value Reference Range Interpretation Comments Alanine Aminotransferase (ALT/SGPT) (test code = 1742-6) 9 0-55 [facility] HospitalTotal Qjbrdap3287-01-75 15:32:00* Test Item Value Reference Range Interpretation Comments Total Protein (test code = 2885-2) 7.9 6.5-8.1 [facility] HospitalAlbumin2019-02-11 15:32:00* Test Item Value Reference Range Interpretation Comments Albumin (test code = 1751-7) 4.1 3.5-5.0 [facility] HospitalGlobulin2019-02-11 15:32:00* Test Item Value Reference Range Interpretation Comments Globulin (test code = 63869-1) 3.8 2.3-3.5 H [facility] HospitalAlbumin/Globulin Shwfz9794-27-33 15:32:00 * Test Item Value Reference Range Interpretation Comments Albumin/Globulin Ratio (test code = 1759-0) 1.1 0.8-2.0 [facility] HospitalAlkaline Kbwumsbsumq2965-80-72 15:32:00* Test Item Value Reference Range Interpretation Comments Alkaline Phosphatase (test code = 6768-6) 68 40-150 [facility] HospitalAmylase Azofj9247-64-81 15:32:00* Test Item Value Reference Range Interpretation Comments Amylase Level (test code = 1798-8) 50 25-125 [facility] HospitalLipase2019-02-11 15:32:00* Test Item Value Reference Range Interpretation Comments Lipase (test code = 3040-3) 16 8-78 [facility]odium Qzhmr7665-11-91 15:32:00* Test Item Value Reference Range Interpretation Comments Sodium Level (test code = 2951-2) 136 136-145 [facility] HospitalPotassium Zwvrs1758-10-27 15:32:00* Test Item Value Reference Range Interpretation Comments Potassium Level (test code = 2823-3) 3.6 3.5-5.1 [facility] HospitalChloride Hcpkq8218-48-06 15:32:00* Test Item Value Reference Range Interpretation Comments Chloride Level (test code = 2075-0) 104 98-107 [facility] HospitalCarbon Dioxide Caups0838-97-88 15:32:00* Test Item Value Reference Range Interpretation Comments Carbon Dioxide Level (test code = 2028-9) 20 22-29 L [facility] HospitalAnion Atv5326-82-73 15:32:00* Test Item Value Reference Range Interpretation Comments Anion Gap (test code = 40699-0) 15.6 8-16 [facility] HospitalBlood Urea Tqctujxp4582-78-38 15:32:00* Test Item Value Reference Range Interpretation Comments Blood Urea Nitrogen (test code = 3094-0) 5 7-26 L [facility] HospitalCreatinine2019-02-11 15:32:00* Test Item Value Reference Range Interpretation Comments Creatinine (test code = 2160-0) 0.67 0.57-1.11 [facility] HospitalBUN/Creatinine Tlxus5369-54-96 15:32:00* Test Item Value Reference Range Interpretation Comments BUN/Creatinine Ratio (test code = 3097-3) 7 6-25 [facility] HospitalEstimat Glomerular Filtration Rate 2018-05-04 15:32:00* Test Item Value Reference Range Interpretation Comments Estimat Glomerular Filtration Rate (test code = 459690949) > 60 >60 Ranges were taken from the National Kidney Disease Education Program and the [facility] literature.Reference ranges:60 or greater: Hqogla64-38 ( for 3 consecutive months): Chronic kidney disease 15 or less: Kidney failureSouth [place] Spine & Surgical HospitalGlucose Jrsvx7209-79-34 15:32:00* Test Item Value Reference Range Interpretation Comments Glucose Level (test code = WFV4663) 95 74-118 [facility] HospitalCalcium Jtuqa7727-50-30 15:32:00* Test Item Value Reference Range Interpretation Comments Calcium Level (test code = 43182-4) 9.2 8.4-10.2 [facility] HospitalMagnesium Rdznr2094-77-88 15:32:00* Test Item Value Reference Range Interpretation Comments Magnesium Level (test code = 66719-3) 2.2 1.3-2.1 H [facility] HospitalTotal Liryknkpt2146-63-71 15:32:00* Test Item Value Reference Range Interpretation Comments Total Bilirubin (test code = 1975-2) 0.3 0.2-1.2 [facility] HospitalAspartate Amino Transf (AST/SGOT) 2018-05-04 15:32:00* Test Item Value Reference Range Interpretation Comments Aspartate Amino Transf (AST/SGOT) (test code = Aspartate Amino Transf (AST/SGOT)) 15 5-34 [facility] HospitalAlanine Aminotransferase (ALT/SGPT) 2018-05-04 15:32:00* Test Item Value Reference Range Interpretation Comments Alanine Aminotransferase (ALT/SGPT) (test code = 1742-6) 9 0-55 [facility] HospitalTotal Dieyfqn9652-98-51 15:32:00* Test Item Value Reference Range Interpretation Comments Total Protein (test code = 2885-2) 7.9 6.5-8.1 [facility] HospitalAlbumin2019-02-11 15:32:00* Test Item Value Reference Range Interpretation Comments Albumin (test code = 1751-7) 4.1 3.5-5.0 [facility] HospitalGlobulin2019-02-11 15:32:00* Test Item Value Reference Range Interpretation Comments Globulin (test code = 99321-0) 3.8 2.3-3.5 H [facility] HospitalAlbumin/Globulin Cavcj9401-91-71 15:32:00 * Test Item Value Reference Range Interpretation Comments Albumin/Globulin Ratio (test code = 1759-0) 1.1 0.8-2.0 [facility] HospitalAlkaline Zcxhpngjjtk8589-69-47 15:32:00* Test Item Value Reference Range Interpretation Comments Alkaline Phosphatase (test code = 6768-6) 68 40-150 [facility] HospitalAmylase Nbaxx5610-23-84 15:32:00* Test Item Value Reference Range Interpretation Comments Amylase Level (test code = 1798-8) 50 25-125 [facility] HospitalLipase2019-02-11 15:32:00* Test Item Value Reference Range Interpretation Comments Lipase (test code = 3040-3) 16 8-78 [facility]
--- OUTSIDE RECORDS SUMMARY | 2019-10-28 16:36 | XMS REPORT | Continuity of Care Document ---
Author Author [facility] t Organization [facility] Address [address] [place] [phone] Phone Unavailable Care Team Providers Care Operations Lieutenant Name Role Phone NO, PCP PCP Unavailable Gaby YING Attphys Unavailable Latha BANEGAS Attphys Unavailable Payers Payer Name Policy Type Policy Number Effective Date Expiration Date S ource Self Pay NA [facility] Medicaid Pending NA [facility] Problems Condition Name Condition Details Condition Category Status Onset Date Resolution Date Last Treatment Date Treating Clinician Comments Source Severe anemia Severe anemia Problem Active 2015-07-23 00:00:00 [facility] Uterine leiomyoma Uterine fibroid Problem Active [facility] Vomiting Problem Active [facility] Acute chest pain Problem Active [facility] Left against medical advice Problem Active [facility] Allergies, Adverse Reactions, Alerts This patient has no known allergies or adverse reactions. Social History Social Habit Start Date Stop Date Quantity Comments Source Sex Assigned At 1980 00:00:00 1980 00:00:00 Female [facility] Medications Ordered Medication Name Filled Medication Name Start Date Stop Da te Current Medication? Ordering Clinician Indication Dosage Frequency Signature (SIG) Comments Components Source Acetaminophen With Codeine (Tylenol With Codeine #3 Ta blet) 1 Each TABLET Acetaminophen With Codeine (Tylenol With Codeine #3 Tablet) 1 Each TABLET Yes 300 As Needed [facility] Aspirin/Caffeine (Bc Powder Packet) 1 Each POWD.PACK A spirin/Caffeine (Bc Powder Packet) 1 Each POWD.PACK 2015-07-25 00:00:00 No 1 3X Weekly [facility] Vital Signs Vital Name Observation Time Observation Value Comments Source Body Temperature 2019-10-25 21:37:00 98.9 [degF] [facility] Weight 2019-10-25 20:25:00 198 [lb_av] [facility] BMI (Body Mass Index) 2019-10-25 20:25:00 29.2 kg/m2 [facility] Weight 2019-09-20 16:49:00 201 [lb_av] [facility] BMI (Body Mass Index) 2019-09-20 16:49:00 29.7 kg/m2 [facility] Procedures Procedure Date / Time Performed Performing Clinician [facility] e X-ray of chest, two views 2019-04-01 00:00:00 BRUNO OCASIO [facility] Encounters Start Date/Time End Date/Time En[facility] Ad[facility] ID Source 2019-10-25 20:49:00 2019-10-25 20:49:00 Registered Emergency Room [facility] [id number] [facility] 2019-09-20 17:08:00 2019-09-20 17:30:00 Departed Emergency Room [facility] [id number] [facility] 2019-05-16 12:30:00 2019-05-16 13:52:00 Departed Emergency Room [facility] [id number] [facility] Patients [facility] 2019-04-01 11:48:00 2019-04-01 14:51:00 Departed Emergency Room 1 SUSHMA YING [facility] [id number] [facility] - Patients [facility] 2018-10-03 14:18:00 2018-10-03 15:15:[address] [facility] [id number] [facility] 2018-10-01 15:35:00 2018-10-01 16:58:[address] [facility] [id number] [facility] 2018-05-04 17:31:00 2018-05-05 21:20:00 Discharged Inpatient (obs) [address] [facility] [id number] [facility] Results Test Description Test Time Test Comments Results Result Comments Source CHEST 2 VIEWS 2019-04-01 14:23:00 [facility] [address] [address] Patient Name: DOMINIK MOREL MR #: [id number] : 1980 Age/Sex: 38/F Req #: [id number] Adm Physician: Ordered by: BRUNO OCASIO NP Report #: [id number] Location: ER Room/Bed: Procedure: [id number] DX/CHEST 2 VIEWS Exam Date: Exam Time: [...] 20:20:00 Test Item Hemoglobin (test code = 49157-0) 8.3 12.0-16.0 L [facility]2019-02-12 20:20:00* Test Item Value Reference Range Interpretation Comments Hematocrit (test code = 4544-3) 28.4 34.2-44.1 L [facility]oglobin2019-02-12 20:20:00* Test Item Value Reference Range Interpretation Comments Hemoglobin (test code = 93836-9) 8.3 12.0-16.0 L [facility]ematocrit2019-02-12 20:20:00* Test Item Value Reference Range Interpretation Comments Hematocrit (test code = 4544-3) 28.4 34.2-44.1 L [facility]oglobin2019-02-12 20:20:00* Test Item Value Reference Range Interpretation Comments Hemoglobin (test code = 68069-9) 8.3 12.0-16.0 L [facility]ematocrit2019-02-12 20:20:00* Test Item Value Reference Range Interpretation Comments Hematocrit (test code = 4544-3) 28.4 34.2-44.1 L [facility]anoPlatelet Lkuuscta3272-48-69 07:26:00* Test Item Value Reference Range Interpretation Comments Platelet Estimate (test code = 85165-4) ADEQUATE [facility]anoPlatelet Morphology Dhwkrno1901-53-61 07:26:00* Test Item Value Reference Range Interpretation Comments Platelet Morphology Comment (test code = 98728-5) NORMAL [facility]Hypochromasia2019-02-12 07:26:00* Test Item Value Reference Range Interpretation Comments Hypochromasia (test code = 728-6) MODERATE [facility]ikilocytosis2019-02-12 07:26:00* Test Item Value Reference Range Interpretation Comments Poikilocytosis (test code = 779-9) SLIGHT [facility]anoAnisocytosis2019-02-12 07:26:00* Test Item Value Reference Range Interpretation Comments Anisocytosis (test code = 702-1) MODE [facility]anoRed Cell Morphology Wutjpty2120-19-03 07:26:00* Test Item Value Reference Range Interpretation Comments Red Cell Morphology Comment (test code = 6742-1) ABNORMAL [facility]anoPlatelet Yzzpstgx5785-83-95 07:26:00* Test Item Value Reference Range Interpretation Comments Platelet Estimate (test code = 80174-6) ADEQUATE [facility]anoPlatelet Morphology Jmqgsxc4825-44-71 07:26:00* Test Item Value Reference Range Interpretation Comments Platelet Morphology Comment (test code = 31894-6) NORMAL [facility]anoHypochromasia2019-02-12 07:26:00* Test Item Value Reference Range Interpretation Comments Hypochromasia (test code = 728-6) MODERATE [facility]Poikilocytosis2019-02-12 07:26:00* Test Item Value Reference Range Interpretation Comments Poikilocytosis (test code = 779-9) SLIGHT [facility]anoAnisocytosis2019-02-12 07:26:00* Test Item Value Reference Range Interpretation Comments Anisocytosis (test code = 702-1) MODE [facility]anoRed Cell Morphology Wgmivac2143-15-89 07:26:00* Test Item Value Reference Range Interpretation Comments Red Cell Morphology Comment (test code = 6742-1) ABNORMAL [facility]anoPlatelet Dqycwcjf8612-89-56 07:26:00* Test Item Value Reference Range Interpretation Comments Platelet Estimate (test code = 07798-7) ADEQUATE [facility]anoPlatelet Morphology Fqrsbog8854-67-38 07:26:00* Test Item Value Reference Range Interpretation Comments Platelet Morphology Comment (test code = 47374-2) NORMAL [facility]anoHypochromasia2019-02-12 07:26:00* Test Item Value Reference Range Interpretation Comments Hypochromasia (test code = 728-6) MODERATE [facility]anoPoikilocytosis2019-02-12 07:26:00* Test Item Value Reference Range Interpretation Comments Poikilocytosis (test code = 779-9) SLIGHT [facility]anoAnisocytosis2019-02-12 07:26:00* Test Item Value Reference Range Interpretation Comments Anisocytosis (test code = 702-1) MODE [facility]anoRed Cell Morphology Nskuygl1898-48-30 07:26:00* Test Item Value Reference Range Interpretation Comments Red Cell Morphology Comment (test code = 6742-1) ABNORMAL [facility]anoWhite Blood Azfrs3083-56-71 05:40:00* Test Item Value Reference Range Interpretation Comments White Blood Count (test code = 6690-2) 8.20 4.8-10.8 [facility]anoRed Blood Wqdip9792-77-14 05:40:00* Test Item Value Reference Range Interpretation Comments Red Blood Count (test code = 789-8) 3.24 3.6-5.1 L [facility] PlanoMean Corpuscular Iilhof5450-79-06 05:40:00* Test Item Value Reference Range Interpretation Comments Mean Corpuscular Volume (test code = 787-2) 70.4 81-99 L VERIFIED PREVIOUS RESULTSB[facility] – PlanoMean Corpuscular Yjwdqmvywu6089-80-35 05:40:00* Test Item Value Reference Range Interpretation Comments Mean Corpuscular Hemoglobin (test code = 785-6) 19.1 28-32 L [facility] PlanoMean Corpuscular Hemoglobin Concent 2018-05-05 05:40:00* Test Item Value Reference Range Interpretation Comments Mean Corpuscular Hemoglobin Concent (test code = 786-4) 27.2 31-35 L [facility] PlanoRed Cell Distribution Ueoto5219-93-62 05:40:00* Test Item Value Reference Range Interpretation Comments Red Cell Distribution Width (test code = 15822-5) 28.1 11.7 -14.4 H [facility] PlanoPlatelet Hzksx4490-25-41 05:40:00* Test Item Value Reference Range Interpretation Comments Platelet Count (test code = 777-3) 174 140-360 [facility]anoNeutrophils (%) (Auto)2018-05-05 05:40:00 * Test Item Value Reference Range Interpretation Comments Neutrophils (%) (Auto) (test code = 09007-9) 65.5 38.7-80.0 [facility]anoLymphocytes (%) (Auto)2018-05-05 05:40:00 * Test Item Value Reference Range Interpretation Comments Lymphocytes (%) (Auto) (test code = 736-9) 18.9 18.0-39.1 [facility]anoMonocytes (%) (Auto)2018-05-05 05:40:00* Test Item Value Reference Range Interpretation Comments Monocytes (%) (Auto) (test code = 5905-5) 12.2 4.4-11.3 H [facility]anoEosinophils (%) (Auto)2018-05-05 05:40:00 * Test Item Value Reference Range Interpretation Comments Eosinophils (%) (Auto) (test code = 713-8) 2.1 0.0-6.0 [facility]Basophils (%) (Auto)2018-05-05 05:40:00* Test Item Value Reference Range Interpretation Comments Basophils (%) (Auto) (test code = 706-2) 1.1 0.0-1.0 H [facility]anoIM GRANULOCYTES %2018-05-05 05:40:00* Test Item Value Reference Range Interpretation Comments IM GRANULOCYTES % (test code = IM GRANULOCYTES %) 0.2 0.0- 1.0 [facility]anoNeutrophils # (Auto)2018-05-05 05:40:00* Test Item Value Reference Range Interpretation Comments Neutrophils # (Auto) (test code = 751-8) 5.4 2.1-6.9 [facility]anoLymphocytes # (Auto)2018-05-05 05:40:00* Test Item Value Reference Range Interpretation Comments Lymphocytes # (Auto) (test code = 81781-3) 1.6 1.0-3.2 [facility]anoMonocytes # (Auto)2018-05-05 05:40:00* Test Item Value Reference Range Interpretation Comments Monocytes # (Auto) (test code = 742-7) 1.0 0.2-0.8 H [facility]anoEosinophils # (Auto)2018-05-05 05:40:00* Test Item Value Reference Range Interpretation Comments Eosinophils # (Auto) (test code = 711-2) 0.2 0.0-0.4 [facility]anoBasophils # (Auto)2018-05-05 05:40:00* Test Item Value Reference Range Interpretation Comments Basophils # (Auto) (test code = 704-7) 0.1 0.0-0.1 [facility] PlanoAbsolute Immature Granulocyte (auto 2018-05-05 05:40:00* Test Item Value Reference Range Interpretation Comments Absolute Immature Granulocyte (auto (lois t code = Absolute Immature Granulocyte (auto) 0.02 0-0.1 [facility]anoWhite Blood Bhhej1548-07-90 05:40:00* Test Item Value Reference Range Interpretation Comments White Blood Count (test code = 6690-2) 8.20 4.8-10.8 [facility] PlanoRed Blood Hklqi8241-84-09 05:40:00* Test Item Value Reference Range Interpretation Comments Red Blood Count (test code = 789-8) 3.24 3.6-5.1 L [facility] PlanoMean Corpuscular Cefvws4987-50-00 05:40:00* Test Item Value Reference Range Interpretation Comments Mean Corpuscular Volume (test code = 787-2) 70.4 81-99 L VERIFIED PREVIOUS RESULTSBaylor [facility] – PlanoMean Corpuscular Recfzexpee2221-05-82 05:40:00* Test Item Value Reference Range Interpretation Comments Mean Corpuscular Hemoglobin (test code = 785-6) 19.1 28-32 L [facility] PlanoMean Corpuscular Hemoglobin Concent 2018-05-05 05:40:00* Test Item Value Reference Range Interpretation Comments Mean Corpuscular Hemoglobin Concent (test code = 786-4) 27.2 31-35 L [facility] PlanoRed Cell Distribution Evsiz0425-85-91 05:40:00* Test Item Value Reference Range Interpretation Comments Red Cell Distribution Width (test code = 78177-1) 28.1 11.7 -14.4 H [facility] PlanoPlatelet Ugmfv3956-36-90 05:40:00* Test Item Value Reference Range Interpretation Comments Platelet Count (test code = 777-3) 174 140-360 [facility]anoNeutrophils (%) (Auto)2018-05-05 05:40:00 * Test Item Value Reference Range Interpretation Comments Neutrophils (%) (Auto) (test code = 29510-8) 65.5 38.7-80.0 [facility]anoLymphocytes (%) (Auto)2018-05-05 05:40:00 * Test Item Value Reference Range Interpretation Comments Lymphocytes (%) (Auto) (test code = 736-9) 18.9 18.0-39.1 [facility]anoMonocytes (%) (Auto)2018-05-05 05:40:00* Test Item Value Reference Range Interpretation Comments Monocytes (%) (Auto) (test code = 5905-5) 12.2 4.4-11.3 H [facility]anoEosinophils (%) (Auto)2018-05-05 05:40:00 * Test Item Value Reference Range Interpretation Comments Eosinophils (%) (Auto) (test code = 713-8) 2.1 0.0-6.0 [facility]anoBasophils (%) (Auto)2018-05-05 05:40:00* Test Item Value Reference Range Interpretation Comments Basophils (%) (Auto) (test code = 706-2) 1.1 0.0-1.0 H [facility]anoIM GRANULOCYTES %2018-05-05 05:40:00* Test Item Value Reference Range Interpretation Comments IM GRANULOCYTES % (test code = IM GRANULOCYTES %) 0.2 0.0- 1.0 [facility]anoNeutrophils # (Auto)2018-05-05 05:40:00* Test Item Value Reference Range Interpretation Comments Neutrophils # (Auto) (test code = 751-8) 5.4 2.1-6.9 [facility]anoLymphocytes # (Auto)2018-05-05 05:40:00* Test Item Value Reference Range Interpretation Comments Lymphocytes # (Auto) (test code = 54453-6) 1.6 1.0-3.2 [facility]anoMonocytes # (Auto)2018-05-05 05:40:00* Test Item Value Reference Range Interpretation Comments Monocytes # (Auto) (test code = 742-7) 1.0 0.2-0.8 H [facility]anoEosinophils # (Auto)2018-05-05 05:40:00* Test Item Value Reference Range Interpretation Comments Eosinophils # (Auto) (test code = 711-2) 0.2 0.0-0.4 [facility]anoBasophils # (Auto)2018-05-05 05:40:00* Test Item Value Reference Range Interpretation Comments Basophils # (Auto) (test code = 704-7) 0.1 0.0-0.1 [facility] PlanoAbsolute Immature Granulocyte (auto 2018-05-05 05:40:00* Test Item Value Reference Range Interpretation Comments Absolute Immature Granulocyte (auto (lois t code = Absolute Immature Granulocyte (auto) 0.02 0-0.1 [facility] PlanoWhite Blood Tmtuf9381-86-88 05:40:00* Test Item Value Reference Range Interpretation Comments White Blood Count (test code = 6690-2) 8.20 4.8-10.8 [facility] PlanoRed Blood Czbqz3364-14-92 05:40:00* Test Item Value Reference Range Interpretation Comments Red Blood Count (test code = 789-8) 3.24 3.6-5.1 L [facility] PlanoMean Corpuscular Rvfxtl1565-77-61 05:40:00* Test Item Value Reference Range Interpretation Comments Mean Corpuscular Volume (test code = 787-2) 70.4 81-99 L VERIFIED PREVIOUS RESULTSBaylor Scott & [facility] – PlanoMean Corpuscular Tevzckttpo0582-06-59 05:40:00* Test Item Value Reference Range Interpretation Comments Mean Corpuscular Hemoglobin (test code = 785-6) 19.1 28-32 L [facility] PlanoMean Corpuscular Hemoglobin Concent 2018-05-05 05:40:00* Test Item Value Reference Range Interpretation Comments Mean Corpuscular Hemoglobin Concent (test code = 786-4) 27.2 31-35 L [facility] PlanoRed Cell Distribution Wzyle6711-62-40 05:40:00* Test Item Value Reference Range Interpretation Comments Red Cell Distribution Width (test code = 56628-8) 28.1 11.7 -14.4 H [facility] PlanoPlatelet Hfjmm5440-70-44 05:40:00* Test Item Value Reference Range Interpretation Comments Platelet Count (test code = 777-3) 174 140-360 [facility]anoNeutrophils (%) (Auto)2018-05-05 05:40:00 * Test Item Value Reference Range Interpretation Comments Neutrophils (%) (Auto) (test code = 84650-4) 65.5 38.7-80.0 [facility]anoLymphocytes (%) (Auto)2018-05-05 05:40:00 * Test Item Value Reference Range Interpretation Comments Lymphocytes (%) (Auto) (test code = 736-9) 18.9 18.0-39.1 [facility]anoMonocytes (%) (Auto)2018-05-05 05:40:00* Test Item Value Reference Range Interpretation Comments Monocytes (%) (Auto) (test code = 5905-5) 12.2 4.4-11.3 H [facility]anoEosinophils (%) (Auto)2018-05-05 05:40:00 * Test Item Value Reference Range Interpretation Comments Eosinophils (%) (Auto) (test code = 713-8) 2.1 0.0-6.0 [facility]anoBasophils (%) (Auto)2018-05-05 05:40:00* Test Item Value Reference Range Interpretation Comments Basophils (%) (Auto) (test code = 706-2) 1.1 0.0-1.0 H [facility]anoIM GRANULOCYTES %2018-05-05 05:40:00* Test Item Value Reference Range Interpretation Comments IM GRANULOCYTES % (test code = IM GRANULOCYTES %) 0.2 0.0- 1.0 [facility]anoNeutrophils # (Auto)2018-05-05 05:40:00* Test Item Value Reference Range Interpretation Comments Neutrophils # (Auto) (test code = 751-8) 5.4 2.1-6.9 [facility]anoLymphocytes # (Auto)2018-05-05 05:40:00* Test Item Value Reference Range Interpretation Comments Lymphocytes # (Auto) (test code = 55412-9) 1.6 1.0-3.2 [facility]anoMonocytes # (Auto)2018-05-05 05:40:00* Test Item Value Reference Range Interpretation Comments Monocytes # (Auto) (test code = 742-7) 1.0 0.2-0.8 H [facility]anoEosinophils # (Auto)2018-05-05 05:40:00* Test Item Value Reference Range Interpretation Comments Eosinophils # (Auto) (test code = 711-2) 0.2 0.0-0.4 [facility]anoBasophils # (Auto)2018-05-05 05:40:00* Test Item Value Reference Range Interpretation Comments Basophils # (Auto) (test code = 704-7) 0.1 0.0-0.1 [facility] PlanoAbsolute Immature Granulocyte (auto 2018-05-05 05:40:00* Test Item Value Reference Range Interpretation Comments Absolute Immature Granulocyte (auto (lois t code = Absolute Immature Granulocyte (auto) 0.02 0-0.1 [facility] PlanoUrine [id number] 17:10:00* Test Item Value Reference Range Interpretation Comments Urine WBC (test code = 5821-4) NONE 0-5 [facility] PlanoUrine [id number] 17:10:00* Test Item Value Reference Range Interpretation Comments Urine RBC (test code = 64881-0) 6-10 0-5 H [facility] PlanoUrine Lhihwqqd3076-84-02 17:10:00* Test Item Value Reference Range Interpretation Comments Urine Bacteria (test code = 61352-3) MODERATE NONE H [facility] PlanoUrine Epithelial Lowav5715-91-26 17:10:00 * Test Item Value Reference Range Interpretation Comments Urine Epithelial Cells (test code = 75336-6) MODERATE NONE [facility] PlanoUrine [id number] 17:10:00* Test Item Value Reference Range Interpretation Comments Urine WBC (test code = 5821-4) NONE 0-5 [facility] PlanoUrine TUV7738-22-23 17:10:00* Test Item Value Reference Range Interpretation Comments Urine RBC (test code = 86430-5) 6-10 0-5 H [facility]anoUrine Tiixkpsg4592-50-83 17:10:00* Test Item Value Reference Range Interpretation Comments Urine Bacteria (test code = 19147-7) MODERATE NONE H [facility] PlanoUrine Epithelial Twnyn6210-37-03 17:10:00 * Test Item Value Reference Range Interpretation Comments Urine Epithelial Cells (test code = 34522-2) MODERATE NONE [facility] PlanoUrine HJP2021-08-82 17:10:00* Test Item Value Reference Range Interpretation Comments Urine WBC (test code = 5821-4) NONE 0-5 [facility]anoUrine [id number] 17:10:00* Test Item Value Reference Range Interpretation Comments Urine RBC (test code = 53994-5) 6-10 0-5 H [facility]anoUrine Pmuxwjln6990-05-27 17:10:00* Test Item Value Reference Range Interpretation Comments Urine Bacteria (test code = 27373-4) MODERATE NONE H [facility] PlanoUrine Epithelial Hwcgu1066-19-02 17:10:00 * Test Item Value Reference Range Interpretation Comments Urine Epithelial Cells (test code = 60590-7) MODERATE NONE [facility] PlanoCT ABDOMEN/PELVIS [id number] 17:05:00 [facility] [address] [address] Patient Name: DOMINIK MOREL MR #: [id number] : 3 Age/Sex: 37/F Req #: [id number] Adm Physician: Ordered by: BRUNO OCASIO NP Report #: [id number] Location: ER Room/Bed: Procedure: [id number] C T/CT ABDOMEN/PELVIS W Exam Date: Exam [...] DARIN on 05/04/181709 COPY TO: BRUNO OCASIO SERVICENOW ADMINISTRATOR Urine Ywrtd9300-08-59 16:58:00* Test Item Value Reference Range Interpretation Comments Urine Color (test code = 5778-6) YELLOW YELLOW [facility]anoUrine Nzmblzv1537-40-07 16:58:00* Test Item Value Reference Range Interpretation Comments Urine Clarity (test code = 27621-5) CLEAR CLEAR [facility] PlanoUrine Specific Xuiqcgw8702-21-52 16:58:00 * Test Item Value Reference Range Interpretation Comments Urine Specific [place] (test code = 5811-5) 1.005 1.010-1.02 5 L [facility] PlanoUrine dP6002-80-11 16:58:00* Test Item Value Reference Range Interpretation Comments Urine pH (test code = 13821-3) 6 5-7 [facility] [facility] Leukocyte Anwkdham0647-59-18 16:58:00* Test Item Value Reference Range Interpretation Comments Urine Leukocyte Esterase (test code = 5799-2) NEGATIVE NEGATIVE [facility] Onvwuzz2551-03-01 16:58:00* Test Item Value Reference Range Interpretation Comments Urine Nitrite (test code = 79602-6) NEGATIVE NEGATIVE [facility] Feogluc2046-75-95 16:58:00* Test Item Value Reference Range Interpretation Comments Urine Protein (test code = 5804-0) NEGATIVE NEGATIVE [facility] Glucose (UA)2018-05-04 16:58:00* Test Item Value Reference Range Interpretation Comments Urine Glucose (UA) (test code = 2349-9) NEGATIVE NEGATIVE [facility] Hbavjbt8641-11-77 16:58:00* Test Item Value Reference Range Interpretation Comments Urine Ketones (test code = 70679-4) NEGATIVE NEGATIVE [facility] Nvssporoddmf8577-58-80 16:58:00* Test Item Value Reference Range Interpretation Comments Urine Urobilinogen (test code = 28324-7) 0.2 0.2-1 [facility] Rwqetehua0687-33-69 16:58:00* Test Item Value Reference Range Interpretation Comments Urine Bilirubin (test code = 1978-6) NEGATIVE NEGATIVE [facility] Qdahb4981-57-35 16:58:00* Test Item Value Reference Range Interpretation Comments Urine Blood (test code = 39911-5) 2+ NEGATIVE H [facility] Mfgam2031-30-65 16:58:00* Test Item Value Reference Range Interpretation Comments Urine Color (test code = 5778-6) YELLOW YELLOW [facility] Qoahydy6003-92-03 16:58:00* Test Item Value Reference Range Interpretation Comments Urine Clarity (test code = 63210-9) CLEAR CLEAR [facility] Specific Dbffhrw2614-72-66 16:58:00 * Test Item Value Reference Range Interpretation Comments Urine Specific [place] (test code = 5811-5) 1.005 1.010-1.02 5 L [facility] yU1957-58-39 16:58:00* Test Item Value Reference Range Interpretation Comments Urine pH (test code = 69172-8) 6 5-7 [facility] Leukocyte Ymxvvwvi7075-39-72 16:58:00* Test Item Value Reference Range Interpretation Comments Urine Leukocyte Esterase (test code = 5799-2) NEGATIVE NEGATIVE [facility] Yplppjz7005-03-78 16:58:00* Test Item Value Reference Range Interpretation Comments Urine Nitrite (test code = 65404-0) NEGATIVE NEGATIVE [facility] Yerhdql5945-95-67 16:58:00* Test Item Value Reference Range Interpretation Comments Urine Protein (test code = 5804-0) NEGATIVE NEGATIVE [facility] Glucose (UA)2018-05-04 16:58:00* Test Item Value Reference Range Interpretation Comments Urine Glucose (UA) (test code = 2349-9) NEGATIVE NEGATIVE [facility] Zevoaho8280-27-30 16:58:00* Test Item Value Reference Range Interpretation Comments Urine Ketones (test code = 81013-2) NEGATIVE NEGATIVE [facility] Qtoshseiswqg3605-97-68 16:58:00* Test Item Value Reference Range Interpretation Comments Urine Urobilinogen (test code = 64540-7) 0.2 0.2-1 [facility] Vafzgvlwv2768-95-85 16:58:00* Test Item Value Reference Range Interpretation Comments Urine Bilirubin (test code = 1978-6) NEGATIVE NEGATIVE [facility] Rvsut0499-46-13 16:58:00* Test Item Value Reference Range Interpretation Comments Urine Blood (test code = 65764-2) 2+ NEGATIVE H [facility] Kysuu0016-16-42 16:58:00* Test Item Value Reference Range Interpretation Comments Urine Color (test code = 5778-6) YELLOW YELLOW [facility] Iuibphm5905-56-41 16:58:00* Test Item Value Reference Range Interpretation Comments Urine Clarity (test code = 93605-6) CLEAR CLEAR [facility] Specific Uvzlprz2474-97-24 16:58:00 * Test Item Value Reference Range Interpretation Comments Urine Specific [place] (test code = 5811-5) 1.005 1.010-1.02 5 L [facility] wB6502-96-59 16:58:00* Test Item Value Reference Range Interpretation Comments Urine pH (test code = 66562-9) 6 5-7 [facility] Leukocyte Dwczabgt7284-81-63 16:58:00* Test Item Value Reference Range Interpretation Comments Urine Leukocyte Esterase (test code = 5799-2) NEGATIVE NEGATIVE [facility] Ntbctdv5286-98-80 16:58:00* Test Item Value Reference Range Interpretation Comments Urine Nitrite (test code = 96436-1) NEGATIVE NEGATIVE [facility] Ezbiymy3812-81-57 16:58:00* Test Item Value Reference Range Interpretation Comments Urine Protein (test code = 5804-0) NEGATIVE NEGATIVE [facility] Glucose (UA)2018-05-04 16:58:00* Test Item Value Reference Range Interpretation Comments Urine Glucose (UA) (test code = 2349-9) NEGATIVE NEGATIVE [facility] Tqsoged2237-47-87 16:58:00* Test Item Value Reference Range Interpretation Comments Urine Ketones (test code = 97831-8) NEGATIVE NEGATIVE [facility] Kubhacdbzjfb2444-85-13 16:58:00* Test Item Value Reference Range Interpretation Comments Urine Urobilinogen (test code = 15077-6) 0.2 0.2-1 [facility] Oktyjbazu3862-03-24 16:58:00* Test Item Value Reference Range Interpretation Comments Urine Bilirubin (test code = 1978-6) NEGATIVE NEGATIVE [facility] Ofput0945-75-50 16:58:00* Test Item Value Reference Range Interpretation Comments Urine Blood (test code = 30303-2) 2+ NEGATIVE H [facility] Chorionic Gonadotropin, Qual 2018-05-04 15:50:00* Test Item Value Reference Range Interpretation Comments Human Chorionic Gonadotropin, Qual (test code = 2118-8) NEGATIVE NEGATIVE [facility] Chorionic Gonadotropin, Qual 2018-05-04 15:50:00* Test Item Value Reference Range Interpretation Comments Human Chorionic Gonadotropin, Qual (test code = 2118-8) NEGATIVE NEGATIVE [facility] Chorionic Gonadotropin, Qual 2018-05-04 15:50:00* Test Item Value Reference Range Interpretation Comments Human Chorionic Gonadotropin, Qual (test code = 2118-8) [facility]GATIVE [facility]GAT[facility] Azbup0188-42-50 15:32:00* Test Item Value Reference Range Interpretation Comments Sodium Level (test code = 2951-2) 136 136-145 [facility] Pcxjv2682-16-05 15:32:00* Test Item Value Reference Range Interpretation Comments Potassium Level (test code = 2823-3) 3.6 3.5-5.1 [facility]anoChloride Wudmx4994-72-53 15:32:00* Test Item Value Reference Range Interpretation Comments Chloride Level (test code = 2075-0) 104 98-107 [facility]anoCarbon Dioxide Ajsvw6597-90-46 15:32:00* Test Item Value Reference Range Interpretation Comments Carbon Dioxide Level (test code = 2028-9) 20 22-29 L [facility] PlanoAnion Omo0083-53-55 15:32:00* Test Item Value Reference Range Interpretation Comments Anion Gap (test code = 89532-3) 15.6 8-16 [facility]anoBlood Urea Zamofsyz5582-39-98 15:32:00* Test Item Value Reference Range Interpretation Comments Blood Urea Nitrogen (test code = 3094-0) 5 7-26 L [facility]anoCreatinine2019-02-11 15:32:00* Test Item Value Reference Range Interpretation Comments Creatinine (test code = 2160-0) 0.67 0.57-1.11 [facility]anoBUN/Creatinine Plxdf6503-71-11 15:32:00* Test Item Value Reference Range Interpretation Comments BUN/Creatinine Ratio (test code = 3097-3) 7 6-25 [facility]anoEstimat Glomerular Filtration Rate 2018-05-04 15:32:00* Test Item Value Reference Range Interpretation Comments Estimat Glomerular Filtration Rate (test code = 922480318) > 60 >60 Ranges were taken from the National Kidney Disease Education Program and the [facility] Kid[facility] Foundation literature.Reference ranges:60 or greater: Lssdyi22-38 ( for 3 consecutive months): Chronic kidney disease 15 or less: Kidney failureBaylor Scott & [facility] PlanoGlucose Utkdk7463-85-28 15:32:00* Test Item Value Reference Range Interpretation Comments Glucose Level (test code = YBH4468) 95 74-118 [facility]anoCalcium Gwdhn4056-20-35 15:32:00* Test Item Value Reference Range Interpretation Comments Calcium Level (test code = 71631-2) 9.2 8.4-10.2 [facility]anoMagnesium Hnbvc2951-49-89 15:32:00* Test Item Value Reference Range Interpretation Comments Magnesium Level (test code = 53423-0) 2.2 1.3-2.1 H [facility]anoTotal Xzroxxuln6968-78-68 15:32:00* Test Item Value Reference Range Interpretation Comments Total Bilirubin (test code = 1975-2) 0.3 0.2-1.2 [facility]anoAspartate Amino Transf (AST/SGOT) 2018-05-04 15:32:00* Test Item Value Reference Range Interpretation Comments Aspartate Amino Transf (AST/SGOT) (test code = Aspartate Amino Transf (AST/SGOT)) 15 5-34 [facility]anoAlanine Aminotransferase (ALT/SGPT) 2018-05-04 15:32:00* Test Item Value Reference Range Interpretation Comments Alanine Aminotransferase (ALT/SGPT) (test code = 1742-6) 9 0-55 [facility]anoTotal Fnqguta6519-16-66 15:32:00* Test Item Value Reference Range Interpretation Comments Total Protein (test code = 2885-2) 7.9 6.5-8.1 [facility] PlanoAlbumin2019-02-11 15:32:00* Test Item Value Reference Range Interpretation Comments Albumin (test code = 1751-7) 4.1 3.5-5.0 [facility] PlanoGlobulin2019-02-11 15:32:00* Test Item Value Reference Range Interpretation Comments Globulin (test code = 89415-3) 3.8 2.3-3.5 H [facility] PlanoAlbumin/Globulin Rsjtq4469-11-46 15:32:00 * Test Item Value Reference Range Interpretation Comments Albumin/Globulin Ratio (test code = 1759-0) 1.1 0.8-2.0 [facility]anoAlkaline Jsxzypxkcle0055-62-65 15:32:00* Test Item Value Reference Range Interpretation Comments Alkaline Phosphatase (test code = 6768-6) 68 40-150 [facility] PlanoAmylase Fcmgr0404-54-79 15:32:00* Test Item Value Reference Range Interpretation Comments Amylase Level (test code = 1798-8) 50 25-125 [facility]anoLipase2019-02-11 15:32:00* Test Item Value Reference Range Interpretation Comments Lipase (test code = 3040-3) 16 8-78 [facility] Vnqje1198-94-36 15:32:00* Test Item Value Reference Range Interpretation Comments Sodium Level (test code = 2951-2) 136 136-145 [facility]anoPotassium Mdwxm7537-65-01 15:32:00* Test Item Value Reference Range Interpretation Comments Potassium Level (test code = 2823-3) 3.6 3.5-5.1 [facility]anoChloride Rupdb2345-69-57 15:32:00* Test Item Value Reference Range Interpretation Comments Chloride Level (test code = 2075-0) 104 98-107 [facility] PlanoCarbon Dioxide Pxnjw0660-59-43 15:32:00* Test Item Value Reference Range Interpretation Comments Carbon Dioxide Level (test code = 2028-9) 20 22-29 L [facility] PlanoAnion Osh4071-49-81 15:32:00* Test Item Value Reference Range Interpretation Comments Anion Gap (test code = 89322-6) 15.6 8-16 [facility]anoBlood Urea Xvvvcgik7122-30-49 15:32:00* Test Item Value Reference Range Interpretation Comments Blood Urea Nitrogen (test code = 3094-0) 5 7-26 L [facility]anoCreatinine2019-02-11 15:32:00* Test Item Value Reference Range Interpretation Comments Creatinine (test code = 2160-0) 0.67 0.57-1.11 [facility]anoBUN/Creatinine Hermj0533-30-82 15:32:00* Test Item Value Reference Range Interpretation Comments BUN/Creatinine Ratio (test code = 3097-3) 7 6-25 [facility] PlanoEstimat Glomerular Filtration Rate 2018-05-04 15:32:00* Test Item Value Reference Range Interpretation Comments Estimat Glomerular Filtration Rate (test code = 057110280) > 60 >60 Ranges were taken from the National Kidney Disease Education Program and the [facility] Kidney Foundation literature.Reference ranges:60 or greater: Nrgzdd29-80 ( for 3 consecutive months): Chronic kidney disease 15 or less: Kidney failureBaylor Scott & [facility] – PlanoGlucose Zlsvf9456-03-28 15:32:00* Test Item Value Reference Range Interpretation Comments Glucose Level (test code = MQK9784) 95 74-118 [facility] PlanoCalcium Ammak7914-57-18 15:32:00* Test Item Value Reference Range Interpretation Comments Calcium Level (test code = 38239-5) 9.2 8.4-10.2 [facility] PlanoMagnesium Tnovn8631-91-99 15:32:00* Test Item Value Reference Range Interpretation Comments Magnesium Level (test code = 70746-5) 2.2 1.3-2.1 H [facility] PlanoTotal Sufemeqvz7513-14-31 15:32:00* Test Item Value Reference Range Interpretation Comments Total Bilirubin (test code = 1975-2) 0.3 0.2-1.2 [facility] PlanoAspartate Amino Transf (AST/SGOT) 2018-05-04 15:32:00* Test Item Value Reference Range Interpretation Comments Aspartate Amino Transf (AST/SGOT) (test code = Aspartate Amino Transf (AST/SGOT)) 15 5-34 [facility] PlanoAlanine Aminotransferase (ALT/SGPT) 2018-05-04 15:32:00* Test Item Value Reference Range Interpretation Comments Alanine Aminotransferase (ALT/SGPT) (test code = 1742-6) 9 0-55 [facility] PlanoTotal Xtzmhsy3743-56-27 15:32:00* Test Item Value Reference Range Interpretation Comments Total Protein (test code = 2885-2) 7.9 6.5-8.1 [facility] PlanoAlbumin2019-02-11 15:32:00* Test Item Value Reference Range Interpretation Comments Albumin (test code = 1751-7) 4.1 3.5-5.0 [facility] PlanoGlobulin2019-02-11 15:32:00* Test Item Value Reference Range Interpretation Comments Globulin (test code = 23959-2) 3.8 2.3-3.5 H [facility] PlanoAlbumin/Globulin Evrsg0137-16-48 15:32:00 * Test Item Value Reference Range Interpretation Comments Albumin/Globulin Ratio (test code = 1759-0) 1.1 0.8-2.0 [facility] PlanoAlkaline Flbzqwflzpj7979-18-18 15:32:00* Test Item Value Reference Range Interpretation Comments Alkaline Phosphatase (test code = 6768-6) 68 40-150 [facility] PlanoAmylase Ohekk6676-65-93 15:32:00* Test Item Value Reference Range Interpretation Comments Amylase Level (test code = 1798-8) 50 25-125 [facility] PlanoLipase2019-02-11 15:32:00* Test Item Value Reference Range Interpretation Comments Lipase (test code = 3040-3) 16 8-78 [facility] Bswjx9217-33-87 15:32:00* Test Item Value Reference Range Interpretation Comments Sodium Level (test code = 2951-2) 136 136-145 [facility] PlanoPotassium Dbist5923-84-32 15:32:00* Test Item Value Reference Range Interpretation Comments Potassium Level (test code = 2823-3) 3.6 3.5-5.1 [facility] PlanoChloride Oymch0821-70-48 15:32:00* Test Item Value Reference Range Interpretation Comments Chloride Level (test code = 2075-0) 104 98-107 [facility] PlanoCarbon Dioxide Jnevo9149-21-88 15:32:00* Test Item Value Reference Range Interpretation Comments Carbon Dioxide Level (test code = 2028-9) 20 22-29 L [facility] PlanoAnion Zgq8590-71-58 15:32:00* Test Item Value Reference Range Interpretation Comments Anion Gap (test code = 63264-3) 15.6 8-16 [facility] PlanoBlood Urea Ybfrzbdb2739-84-34 15:32:00* Test Item Value Reference Range Interpretation Comments Blood Urea Nitrogen (test code = 3094-0) 5 7-26 L [facility] PlanoCreatinine2019-02-11 15:32:00* Test Item Value Reference Range Interpretation Comments Creatinine (test code = 2160-0) 0.67 0.57-1.11 [facility]anoBUN/Creatinine Dspcb4698-18-23 15:32:00* Test Item Value Reference Range Interpretation Comments BUN/Creatinine Ratio (test code = 3097-3) 7 6-25 [facility] PlanoEstimat Glomerular Filtration Rate 2018-05-04 15:32:00* Test Item Value Reference Range Interpretation Comments Estimat Glomerular Filtration Rate (test code = 646354727) > 60 >60 Ranges were taken from the National Kidney Disease Education Program and the [facility] Kid[facility] Foundation literature.Reference ranges:60 or greater: Kfbfkm61-03 ( for 3 consecutive months): Chronic kidney disease 15 or less: Kidney failureBaylor Scott & [facility] – PlanoGlucose Htmpy6524-32-94 15:32:00* Test Item Value Reference Range Interpretation Comments Glucose Level (test code = QHD7155) 95 74-118 [facility] PlanoCalcium Fleat5998-47-85 15:32:00* Test Item Value Reference Range Interpretation Comments Calcium Level (test code = 37064-6) 9.2 8.4-10.2 [facility] PlanoMagnesium Kbhxr9543-48-46 15:32:00* Test Item Value Reference Range Interpretation Comments Magnesium Level (test code = 09109-1) 2.2 1.3-2.1 H [facility] PlanoTotal Ykkkvcrov9446-98-96 15:32:00* Test Item Value Reference Range Interpretation Comments Total Bilirubin (test code = 1975-2) 0.3 0.2-1.2 [facility] PlanoAspartate Amino Transf (AST/SGOT) 2018-05-04 15:32:00* Test Item Value Reference Range Interpretation Comments Aspartate Amino Transf (AST/SGOT) (test code = Aspartate Amino Transf (AST/SGOT)) 15 5-34 [facility] PlanoAlanine Aminotransferase (ALT/SGPT) 2018-05-04 15:32:00* Test Item Value Reference Range Interpretation Comments Alanine Aminotransferase (ALT/SGPT) (test code = 1742-6) 9 0-55 [facility] PlanoTotal Nsrukhj0128-85-84 15:32:00* Test Item Value Reference Range Interpretation Comments Total Protein (test code = 2885-2) 7.9 6.5-8.1 [facility] PlanoAlbumin2019-02-11 15:32:00* Test Item Value Reference Range Interpretation Comments Albumin (test code = 1751-7) 4.1 3.5-5.0 [facility] PlanoGlobulin2019-02-11 15:32:00* Test Item Value Reference Range Interpretation Comments Globulin (test code = 46289-2) 3.8 2.3-3.5 H [facility] PlanoAlbumin/Globulin Xcwig1848-17-97 15:32:00 * Test Item Value Reference Range Interpretation Comments Albumin/Globulin Ratio (test code = 1759-0) 1.1 0.8-2.0 [facility] PlanoAlkaline Roaqbjpfouf2331-27-67 15:32:00* Test Item Value Reference Range Interpretation Comments Alkaline Phosphatase (test code = 6768-6) 68 40-150 [facility] PlanoAmylase Qjpfx6083-87-31 15:32:00* Test Item Value Reference Range Interpretation Comments Amylase Level (test code = 1798-8) 50 25-125 [facility] PlanoLipase2019-02-11 15:32:00* Test Item Value Reference Range Interpretation Comments Lipase (test code = 3040-3) 16 8-78 [facility]
[2019-10-28 16:38] LABS: BACTERIA,URINE MODERATE /HPF; EPITHELIAL CELLS,URINE FEW /LPF; KETONES,URINE NEGATIVE (NEGATIVE)
--- NOTE | 2019-10-28 16:47 | NUR ---
RECEIVED PATIENT FROM THE ER, PT IS AMBULATORY. PT IS ALERT, NO S/S OF DISTRESS. NO C/O PAIN AT THIS TIME. CALL LIGHT PLACED WITHIN REACH AND INSTRUCTED PT TO CALL RN FOR HELP, SIDE RAILS PUT UP, BED PUT IN LOWEST POSITION.
--- NOTE | 2019-10-28 16:55 | Diagnostic Imaging Report ---
CT of the chest, with contrast. History: Chest breath, chest pain. Comparison: Chest radiograph from 04/01/2019, CT abdomen/pelvis from 05/04/2018. Technique: Multidetector CT scanning of the chest was performed from the level of the apices to the upper abdomen after intravenous administration of contrast. Coronal and sagittal multiplanar reformations were obtained. RADIATION DOSE: Total DLP: 450.96 mGy*cm Dose modulation, iterative reconstruction, and/or weight based adjustment of the mA/kV was utilized to reduce the radiation dose to as low as reasonably achievable. FINDINGS: The thyroid and remaining visualized structures within the base of the neck demonstrate no significant abnormalities. The thoracic aorta is normal course and caliber. The main pulmonary artery is normal in caliber. Although this examination was not tailored for detailed evaluation of the pulmonary arteries, no central filling defect is identified to suggest pulmonary thromboembolism. The heart is not enlarged. No abnormal pericardial fluid is present. There is no abnormal axillary, mediastinal, or hilar lymph node enlargement. The trachea and proximal airways are patent. Examination of the lungs demonstrates no evidence for consolidation, pneumothorax, mass, suspicious nodule, or pleural effusion. A subcentimeter hypodensities identified within the left hepatic lobe which is too small to definitively characterize but appears stable from the prior examination and likely represents a cyst. The remaining visualized upper abdominal contents demonstrate no significant abnormalities. The osseous structures demonstrate no evidence for acute fracture or destructive process. The extrathoracic soft tissues are unremarkable. IMPRESSION: No acute intrathoracic process identified. Signed by: Dr. Jalil Ordonez MD on 10/28/2019 4:52 PM
[2019-10-28 17:21] VITALS: BP 121/55
[2019-10-28 17:22] VITALS: BP 121/55
[2019-10-28 17:26] VITALS: BP 121/55
[2019-10-28] MEDS ORDERED: TEMAZEPAM 15 MG CAP PO PRN (18:00)
[2019-10-28] MEDS ORDERED: ONDANSETRON HCL INJ 2MG/ML 2ML 2 MG/ML VIAL IV PRN (18:00)
[2019-10-28] MEDS ORDERED: POLYETHYLENE GLYCOL 3350 17 GM PACK PO PRN (18:00)
[2019-10-28] MEDS ORDERED: HYDRALAZINE HCL 20 MG/ML VIAL IV PRN (18:00)
[2019-10-28] MEDS ORDERED: DIAZEPAM 5 MG TAB PO SCH (18:15)
[2019-10-28] MEDS ORDERED: SODIUM CHLORIDE 0.9% 50ML 50 ML ONE (18:44)
[2019-10-28] MEDS ORDERED: IOPAMIDOL 370 MG/ML 200 ML INFUS..BTL INJ ONE (18:44)
--- NOTE | 2019-10-28 19:10 | NUR ---
Received the patient in report.transfusing blood.stable condition.
[2019-10-28 20:00] VITALS: BP 113/75
--- NOTE | 2019-10-28 20:40 | NUR ---
FIRST UNIT OF BLOOD COMPLETED.STABLE CONDITION.NO REACTION NOTED.
[2019-10-28 20:55] VITALS: BP 113/75
[2019-10-28] MEDS: ACETAMINOPHEN 325 MG TAB PO PRN (21:44)
--- NOTE | 2019-10-28 22:05 | NUR ---
Second unit of blood started after verify with second rn. .v/s stable.
[2019-10-29] VITALS (8 sets, daily range): BP systolic 106–116; BP diastolic 60–74
--- NOTE | 2019-10-29 01:07 | NUR ---
Blood transfusion completed.pt.tolerated well.
--- NOTE | 2019-10-29 05:11 | NUR ---
Needs to collect stool occult blood.
[2019-10-29 05:25] LABS: BASOPHILS # (AUTO) 0.1 (0.0-0.1); BASOPHILS % 1.6 % (0.0-1.0); EOSINOPHILS # (AUTO) 0.1 (0.0-0.4); EOSINOPHILS % 0.8 % (0.0-6.0); HEMATOCRIT 24.1 % (34.2-44.1); LYMPHOCYTES # (AUTO) 2.3 (1.0-3.2); LYMPHOCYTES % 30.6 % (18.0-39.1); MEAN CORPUSCULAR HEMOGLOBIN 19.7 pg (28-32); MEAN CORPUSCULAR HGB CONC 27.4 g/dL (31-35); MEAN CORPUSCULAR VOLUME 71.9 fL (81-99); MONOCYTES # (AUTO) 0.8 (0.2-0.8); NEUTROPHILS # (AUTO) 4.2 (2.1-6.9); NEUTROPHILS % 55.9 % (38.7-80.0); PLATELET COUNT 252 x10e3/uL (140-360); RED BLOOD COUNT 3.35 x10e6/uL (3.6-5.1); RED CELL DISTRIBUTION WIDTH 29.1 % (11.7-14.4)
[2019-10-29 05:45] LABS: ALANINE AMINOTRANSFERASE 8 IU/L (0-55); ALBUMIN 3.8 g/dL (3.5-5.0); ALBUMIN/GLOBULIN RATIO 1.2 (0.8-2.0); ALKALINE PHOSPHATASE 61 IU/L (40-150); ANION GAP 10.9 mmol/L (8-16); BLOOD UREA NITROGEN 5 mg/dL (7-26); BUN/CREATININE RATIO 8 (6-25); CARBON DIOXIDE 24 mmol/L (22-29); CHLORIDE 107 mmol/L (98-107); CHOL/HDL RATIO 3.4 (3.0-3.6); CHOLESTEROL 149 MD/DL (0-199); CREATININE, SERUM 0.64 mg/dL (0.57-1.11); EST GLOMERULAR FILTRATION RATE > 60 ML/MIN (60-); GLUCOSE 82 mg/dL (74-118); HDL CHOLESTEROL 44 MG/DL (40-60); LDL CHOLESTEROL 93 MG/DL (60-130); PHOSPHORUS 3.8 MG/DL (2.3-4.7); POTASSIUM 3.9 mmol/L (3.5-5.1); SODIUM 138 mmol/L (136-145); TRIGLYCERIDES 59 MG/DL (0-149)
[2019-10-29 05:53] LABS: HEMOGLOBIN 6.6 g/dL (12.0-16.0)
[2019-10-29 06:08] LABS: THYROID STIMULATING HORMONE 4.213 uIU/mL (0.350-4.940)
--- NOTE | 2019-10-29 06:30 | NUR ---
LEFT THE MESSAGE TO [employer] ABOUT LAB CRITICAL VALUE OF HB 6.6 .
--- NOTE | 2019-10-29 07:00 | NUR ---
Received bedside shift report from off going night nurse. Patient in stable condition, no s/s of distress noted. IV fluids infusing, site asymptomatic and patent, transparent dressing applied C/D/I. Bed in lowest position and locked. call light within reach.
--- NOTE | 2019-10-29 07:12 | NUR ---
Received new orders from Alisia.Bed side shift report given to oncoming RN.stable condition.
[2019-10-29] MEDS ORDERED: FUROSEMIDE INJ 10 MG/ML 2 ML VIAL IV PRN (07:45)
[2019-10-29] MEDS ORDERED: SODIUM CHLORIDE 0.9% 250ML 250 ML IV ONE ×2 (07:45→08:15)
[2019-10-29] MEDS: DOCUSATE SODIUM 100 MG CAP PO SCH ×2 (09:56→16:55)
[2019-10-29] MEDS: FAMOTIDINE 20 MG/2 ML VIAL IV SCH ×2 (09:56→16:56)
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
[2019-10-29] MEDS ORDERED: SODIUM CHLORIDE 0.9% 250ML 250 ML ONE (15:17)
--- NOTE | 2019-10-29 15:36 | NUR ---
GAVE PACKET OF INFORMATION WITH COMMUNITY [employer] FOR ASSISTANCE WITH LOW TO NO INCOME TO PATIENT. RESOURCES THAT PATIENT MAY BE ABLE TO FOLLOW UP UPON DISCHARGE. PT EDUCATED ON EACH RESOURCE AND UNDERSTANDING HOW TO FOLLOW UP TO SEE IF QUALIFIED FOR EACH RESOURCE.
[2019-10-29] MEDS: ACETAMINOPHEN 325 MG TAB PO PRN (16:57)
--- NOTE | 2019-10-29 18:46 | NUR ---
Completed bedside shift report and rounding with the oncoming night nurse. Patient in stable condition, no s/s of distress noted. IV site asymptomatic and patent, transparent dressing applied C/D/I. Patient received 2 units of blood during morning shift. Patient tolerated transfusion well. Bed in lowest position and locked. call light within reach.
[2019-10-29 20:03] LABS: HEMATOCRIT 32.4 % (34.2-44.1)
--- NOTE | 2019-10-29 20:31 | NUR ---
HH RESULTS ARE IN. SPOKE WITH ON-CALL WHO WILL ASK ASSET PROTECTION ASSISTANT TO GIVE US A CALL. AWAITING CALL BACK FROM ASSET PROTECTION ASSISTANT.
--- NOTE | 2019-10-29 22:15 | NUR ---
PATIENT HAS LEFT FACILITY VIA PRIVATE AUTOMOBILE. PATIENT LEFT WITH ALL BELONGINGS. IV DISCONTINUED PRIOR TO DISCHARGE.
--- NOTE | 2019-10-29 23:56 | Discharge Summary ---
PRIMARY CARE PHYSICIAN: None. CONSULTING PHYSICIAN: None. CHIEF COMPLAINT: Chest pain and shortness of breath. HISTORY OF PRESENT ILLNESS: The patient is a 39-year-old female with pressure-like chest pain, rated 5/10 and shortness of breath for several weeks and now worsening enough that she presented to the emergency department. She states that every 1-1/2 years this happens. Her cycle has been running heavy, usually last 13-14 day durations. Her most recent menses started on 10/15 and stopped on 10/25. She received PRBCs twice within the past four years, always here at [facility]. Please see H and P for past medical history, past surgical history, family history, social history. ALLERGIES: SHOWS NO KNOWN ALLERGIES. ADMITTING DIAGNOSES: 1. Acute blood loss anemia due to heavy menses. 2. Known history of uterine fibroids. 3. Dyspnea, likely due to #1. 4. Pressure-like chest pain, likely due to #1. 5. Active smoker. DISCHARGE DIAGNOSES: 1. Acute blood loss anemia due to heavy menses, now status post 4 units PRBCs, admitting hemoglobin 4.9, hemoglobin this morning 6.6 and after two additional units of blood, hemoglobin 9.0. 2. Known history of uterine fibroids. 3. Dyspnea, likely due to #1. 4. Pressure-like chest pain, likely due to #1. 5. Active smoker. Please see history and physical for initial laboratory data. CT of the chest with contrast on 10/27, had shown no acute intrathoracic process. No change in physical exam. Today, temperature 96.8, heart rate 63, blood pressure 111/66, respirations 18, and oxygen saturation 100%. The patient will be discharge home on cardiac diet. Activity level as tolerated. Establishing followup with PCP in 1-2 weeks. The patient states that she filed for women's health insurance, so now she can file to get an MACHINE CHOCOLATE MOLDER. The patient establishing followup with MACHINE CHOCOLATE MOLDER as soon as possible when able. Continue Tylenol #3 as per home med for pain control at home. No new prescriptions. Billing code [id number]. Time spent 35 minutes. Dictated by Mohan Jay NP MD SUKHDEV Olivares/RANDALLL /[id number]
== END 2019-10-29 22:15 | disposition home or self-care (01) ==
LOC: ER 15:00 → ERHOLD 16:04 → MED/SURG 16:51
PROVIDERS: ADMIT Internal Medicine; ATTEND Internal Medicine
DX: D62 Acute posthemorrhagic anemia (principal); N92.0 Excessive and frequent menstruation with regular cycle; D25.9 Leiomyoma of uterus, unspecified; F17.210 Nicotine dependence, cigarettes, uncomplicated; R07.89 Other chest pain; Z11.59 Encounter for screening for other viral diseases
CPT/HCPCS: 36415 ×2; 36430; 71260; 80053 ×2; 80061; 80307; 81001; 81025; 82550; 82553; 82948; 83036; 83735; 84100; 84443; 84484; 85014; 85018; 85025 ×2; 86850; 86900; 86920; 99284; G0378 ×2; J2405; J7050 ×2; P9016 ×2; Q9967; U0002

== ENCOUNTER 2020-01-09 18:33 | Emergency (ER) | payer SELFPAY ==
[~2020-01-09] VITALS: Ht 175.3 cm; Wt 83.9 kg
[2020-01-09 19:06] LABS: BASOPHILS # (AUTO) 0.1 (0.0-0.1); BASOPHILS % 1.3 % (0.0-1.0); EOSINOPHILS # (AUTO) 0.1 (0.0-0.4); EOSINOPHILS % 0.6 % (0.0-6.0); HEMOGLOBIN 8.1 g/dL (12.0-16.0); LYMPHOCYTES % 23.3 % (18.0-39.1); MEAN CORPUSCULAR HEMOGLOBIN 18.5 pg (28-32); MEAN CORPUSCULAR HGB CONC 26.1 g/dL (31-35); MEAN CORPUSCULAR VOLUME 70.6 fL (81-99); MONOCYTES # (AUTO) 0.8 (0.2-0.8); NEUTROPHILS # (AUTO) 5.7 (2.1-6.9); NEUTROPHILS % 65.6 % (38.7-80.0); PLATELET COUNT 217 x10e3/uL (140-360); RED BLOOD COUNT 4.39 x10e6/uL (3.6-5.1); RED CELL DISTRIBUTION WIDTH 20.5 % (11.7-14.4)
[2020-01-09 19:26] LABS: ALANINE AMINOTRANSFERASE 13 IU/L (0-55); ALBUMIN 4.5 g/dL (3.5-5.0); ALBUMIN/GLOBULIN RATIO 1.2 (0.8-2.0); ALKALINE PHOSPHATASE 63 IU/L (40-150); ANION GAP 15.6 mmol/L (8-16); BLOOD UREA NITROGEN 7 mg/dL (7-26); BUN/CREATININE RATIO 9 (6-25); CALCIUM 9.8 mg/dL (8.4-10.2); CARBON DIOXIDE 23 mmol/L (22-29); CHLORIDE 103 mmol/L (98-107); CREATINE KINASE 38 IU/L (29-168); CREATININE, SERUM 0.75 mg/dL (0.57-1.11); EST GLOMERULAR FILTRATION RATE > 60 ML/MIN (60-); GLUCOSE 98 mg/dL (74-118); POTASSIUM 3.6 mmol/L (3.5-5.1); SODIUM 138 mmol/L (136-145)
[2020-01-09 20:21] VITALS: BP 116/87
== END 2020-01-09 20:26 | disposition home or self-care (01) ==
LOC: ER 18:49
DX: R07.89 Other chest pain (principal); D64.9 Anemia, unspecified
CPT/HCPCS: 36415; 71045; 80053; 82550; 82553; 84484; 84702; 85025; 93005; 99284

== ENCOUNTER 2020-04-17 14:26 | Inpatient (IN) | payer SELFPAY ==
[2020-04-17] VITALS (10 sets, daily range): BP systolic 102–123; BP diastolic 57–70
[~2020-04-17] VITALS: Ht 175.3 cm; Wt 83.9 kg
[2020-04-17 15:30] LABS: BASOPHILS # (AUTO) 0.1 (0.0-0.1); BASOPHILS % 0.8 % (0.0-1.0); EOSINOPHILS % 0.4 % (0.0-6.0); LYMPHOCYTES # (AUTO) 1.2 (1.0-3.2); LYMPHOCYTES % 15.7 % (18.0-39.1); MEAN CORPUSCULAR HEMOGLOBIN 14.9 pg (28-32); MEAN CORPUSCULAR HGB CONC 23.5 g/dL (31-35); MEAN CORPUSCULAR VOLUME 63.2 fL (81-99); MONOCYTES # (AUTO) 0.8 (0.2-0.8); MONOCYTES % 9.7 % (4.4-11.3); NEUTROPHILS # (AUTO) 5.7 (2.1-6.9); NEUTROPHILS % 72.9 % (38.7-80.0); PLATELET COUNT 358 x10e3/uL (140-360); RED BLOOD COUNT 2.96 x10e6/uL (3.6-5.1); RED CELL DISTRIBUTION WIDTH 22.5 % (11.7-14.4)
[2020-04-17 15:33] LABS: HEMATOCRIT 18.7 % (34.2-44.1); HEMOGLOBIN 4.4 g/dL (12.0-16.0)
[2020-04-17] MEDS ORDERED: SODIUM CHLORIDE 0.9% 1000ML 1,000 ML IV STA (15:38)
[2020-04-17] MEDS ORDERED: SODIUM CHLORIDE 0.9% 250ML 250 ML IV ONE (15:45)
[2020-04-17 15:53] LABS: ALANINE AMINOTRANSFERASE 12 IU/L (0-55); ALBUMIN 4.1 g/dL (3.5-5.0); ALBUMIN/GLOBULIN RATIO 1.1 (0.8-2.0); ALKALINE PHOSPHATASE 62 IU/L (40-150); ANION GAP 15.7 mmol/L (8-16); BLOOD UREA NITROGEN 7 mg/dL (7-26); BUN/CREATININE RATIO 10 (6-25); CALCIUM 9.5 mg/dL (8.4-10.2); CARBON DIOXIDE 22 mmol/L (22-29); CHLORIDE 104 mmol/L (98-107); CREATINE KINASE 29 IU/L (29-168); CREATININE, SERUM 0.71 mg/dL (0.57-1.11); EST GLOMERULAR FILTRATION RATE > 60 ML/MIN (60-); GLUCOSE 106 mg/dL (74-118); POTASSIUM 3.7 mmol/L (3.5-5.1); SODIUM 138 mmol/L (136-145)
[2020-04-17 16:19] LABS: HYPOCHROMASIA MARKED; POLYCHROMASIA FEW
[2020-04-17 16:20] LABS: ANISOCYTOSIS SLIG; MICROCYTOSIS MODE; PLATELET ESTIMATE ADEQUATE; PLATELET MORPHOLOGY COMMENT NORMAL; POIKILOCYTOSIS SLIGHT; SCHISTOCYTES RARE
[2020-04-17 17:15] LABS: % IRON SATURATION 2 % (15-50); IRON 13 ug/dL (50-170); TOTAL IRON BINDING CAPACITY 708 ug/dL (261-478); TRANSFERRIN 506 mg/dL (180-382)
[2020-04-17 17:36] LABS: FERRITIN < 1.00 ng/mL (4.63-204.00)
[2020-04-17] MEDS ORDERED: SODIUM CHLORIDE 0.9% 250ML 250 ML ONE (19:47)
[2020-04-17] MEDS ORDERED: PANTOPRAZOLE SOD 40 MG TABEC PO ONE (20:45)
[2020-04-17] MEDS ORDERED: BC POWDER PACK1 EAC1 (22:19)
[2020-04-17] MEDS ORDERED: VICODIN HP 10-1 EAC1 PO (22:19)
[2020-04-17] MEDS ORDERED: ADVIL200 M1 (22:19)
[2020-04-18] VITALS (9 sets, daily range): BP systolic 95–113; BP diastolic 53–66
[2020-04-18] MEDS ORDERED: HYDROCODONE/APAP 5MG-325MG TAB PO PRN (00:45)
[2020-04-18] MEDS ORDERED: LIDOCAINE 4% PATCH TP PRN (00:45)
[2020-04-18] MEDS ORDERED: MELATONIN 5 MG TABLET PO PRN (00:45)
[2020-04-18] MEDS ORDERED: ACETAMINOPHEN 325 MG TAB PO PRN (00:45)
[2020-04-18] MEDS ORDERED: DEXTROSE 50% SYRINGE 50 ML IV PRN (00:45)
[2020-04-18] MEDS ORDERED: BENZONATATE 100 MG CAP PO PRN (00:45)
[2020-04-18] MEDS ORDERED: DIPHENHYDRAMINE HCL 25 MG CAP PO PRN (00:45)
[2020-04-18] MEDS ORDERED: ONDANSETRON HCL INJ 2MG/ML 2ML 2 MG/ML VIAL IV PRN (00:45)
[2020-04-18] MEDS ORDERED: DOCUSATE SODIUM 100 MG CAP PO PRN (00:45)
[2020-04-18] MEDS ORDERED: POTASSIUM CHLORIDE 20 MEQ TAB CR PO PRN (00:45)
[2020-04-18 05:23] LABS: BASOPHILS # (AUTO) 0.1 (0.0-0.1); BASOPHILS % 1.4 % (0.0-1.0); EOSINOPHILS # (AUTO) 0.2 (0.0-0.4); EOSINOPHILS % 2.6 % (0.0-6.0); LYMPHOCYTES # (AUTO) 2.2 (1.0-3.2); LYMPHOCYTES % 27.3 % (18.0-39.1); MEAN CORPUSCULAR HEMOGLOBIN 19.1 pg (28-32); MEAN CORPUSCULAR HGB CONC 27.5 g/dL (31-35); MEAN CORPUSCULAR VOLUME 69.6 fL (81-99); MONOCYTES # (AUTO) 0.9 (0.2-0.8); MONOCYTES % 11.1 % (4.4-11.3); NEUTROPHILS # (AUTO) 4.6 (2.1-6.9); NEUTROPHILS % 57.3 % (38.7-80.0); PLATELET COUNT 276 x10e3/uL (140-360); RED BLOOD COUNT 3.19 x10e6/uL (3.6-5.1); RED CELL DISTRIBUTION WIDTH 27.1 % (11.7-14.4)
[2020-04-18 05:40] LABS: HEMOGLOBIN 6.1 g/dL (12.0-16.0)
[2020-04-18 05:41] LABS: HEMATOCRIT 22.2 % (34.2-44.1)
[2020-04-18 05:50] LABS: ANION GAP 11.8 mmol/L (8-16); BLOOD UREA NITROGEN 5 mg/dL (7-26); BUN/CREATININE RATIO 8 (6-25); CALCIUM 8.4 mg/dL (8.4-10.2); CARBON DIOXIDE 21 mmol/L (22-29); CHLORIDE 108 mmol/L (98-107); EST GLOMERULAR FILTRATION RATE > 60 ML/MIN (60-); GLUCOSE 89 mg/dL (74-118); POTASSIUM 3.8 mmol/L (3.5-5.1); SODIUM 137 mmol/L (136-145)
[2020-04-18 07:28] LABS: ANISOCYTOSIS MARKED
[2020-04-18 07:29] LABS: ELLIPTOCYTE, RBC SLIGHT; MICROCYTOSIS MODERATE; POLYCHROMASIA FEW
[2020-04-18 07:31] LABS: HYPOCHROMASIA MODERATE; PLATELET ESTIMATE ADEQUATE; PLATELET MORPHOLOGY COMMENT FEW LARGE; RBC MORPHOLOGY COMMENT ABNORMAL
[2020-04-18] MEDS ORDERED: SODIUM CHLORIDE 0.9% 250ML 250 ML IV ONE (08:00)
[2020-04-18] MEDS: PANTOPRAZOLE SOD 40 MG TABEC PO SCH (08:17)
[2020-04-18] MEDS ORDERED: DIPHENHYDRAMINE HCL INJ 50 MG/ML VIAL IV ONE (13:30)
[2020-04-19] VITALS (7 sets, daily range): BP systolic 103–124; BP diastolic 55–74
[2020-04-19 05:01] LABS: BASOPHILS # (AUTO) 0.1 (0.0-0.1); BASOPHILS % 0.9 % (0.0-1.0); EOSINOPHILS # (AUTO) 0.2 (0.0-0.4); EOSINOPHILS % 2.1 % (0.0-6.0); HEMATOCRIT 23.7 % (34.2-44.1); LYMPHOCYTES # (AUTO) 2.4 (1.0-3.2); MEAN CORPUSCULAR HEMOGLOBIN 18.5 pg (28-32); MEAN CORPUSCULAR HGB CONC 26.6 g/dL (31-35); MEAN CORPUSCULAR VOLUME 69.7 fL (81-99); MONOCYTES # (AUTO) 0.8 (0.2-0.8); MONOCYTES % 10.7 % (4.4-11.3); NEUTROPHILS # (AUTO) 4.2 (2.1-6.9); NEUTROPHILS % 54.9 % (38.7-80.0); PLATELET COUNT 258 x10e3/uL (140-360); RED CELL DISTRIBUTION WIDTH 27.2 % (11.7-14.4)
[2020-04-19 05:03] LABS: HEMOGLOBIN 6.3 g/dL (12.0-16.0)
[2020-04-19] MEDS: PANTOPRAZOLE SOD 40 MG TABEC PO SCH (07:58)
[2020-04-19] MEDS ORDERED: SODIUM CHLORIDE 0.9% 250ML 250 ML IV ONE (08:00)
[2020-04-19 08:09] LABS: BAND NEUTROPHILS % (MANUAL) 1 %; EOSINOPHILS % (MANUAL) 2 % (0-7); LYMPHOCYTES % (MANUAL) 25 % (19-48); METAMYELOCYTES % (MANUAL) 4 % (0-0); MONOCYTES % (MANUAL) 1 % (3.4-9.0); MYELOCYTES % (MANUAL) 1 % (0-0); NEUTROPHILS % (MANUAL) 65 % (40-74); POLYCHROMASIA FEW
[2020-04-19 08:10] LABS: ANISOCYTOSIS MODE; ELLIPTOCYTE, RBC SLIGHT; MICROCYTOSIS SLIG; POIKILOCYTOSIS MODERATE
[2020-04-19 08:11] LABS: RBC MORPHOLOGY COMMENT ABNORMAL; SMUDGE CELLS FEW; TEAR DROP CELLS FEW; TOXIC GRANULATION SLIGHT
[2020-04-19 08:12] LABS: PLATELET ESTIMATE ADEQUATE; PLATELET MORPHOLOGY COMMENT NORMAL
[2020-04-19] MEDS ORDERED: SODIUM CHLORIDE 0.9% 250ML 250 ML ONE (15:02)
[2020-04-19 23:56] LABS: BASOPHILS # (AUTO) 0.1 (0.0-0.1); BASOPHILS % 1.2 % (0.0-1.0); EOSINOPHILS % 0.1 % (0.0-6.0); HEMATOCRIT 31.2 % (34.2-44.1); LYMPHOCYTES # (AUTO) 2.2 (1.0-3.2); LYMPHOCYTES % 22.4 % (18.0-39.1); MEAN CORPUSCULAR HEMOGLOBIN 21.2 pg (28-32); MEAN CORPUSCULAR HGB CONC 28.8 g/dL (31-35); MEAN CORPUSCULAR VOLUME 73.6 fL (81-99); MONOCYTES # (AUTO) 0.9 (0.2-0.8); MONOCYTES % 9.4 % (4.4-11.3); NEUTROPHILS # (AUTO) 6.7 (2.1-6.9); NEUTROPHILS % 66.6 % (38.7-80.0); PLATELET COUNT 228 x10e3/uL (140-360); RED BLOOD COUNT 4.24 x10e6/uL (3.6-5.1); RED CELL DISTRIBUTION WIDTH 27.3 % (11.7-14.4)
== END 2020-04-20 00:35 | disposition home or self-care (01) | DRG 812 ==
LOC: ER 15:33 → ERHOLD 15:50 → MED/SURG 18:23 → OBSVTOIN 04-18 15:36
PROVIDERS: ADMIT Internal Medicine; ATTEND Internal Medicine
PROC: 30233N1 Transfusion of Nonautologous Red Blood Cells into Peripheral Vein, Percutaneous Approach (ICD-10-PCS; principal; 2020-04-17)
PROC: 30233N1 Transfusion of Nonautologous Red Blood Cells into Peripheral Vein, Percutaneous Approach (ICD-10-PCS; 2020-04-18)
PROC: 30233N1 Transfusion of Nonautologous Red Blood Cells into Peripheral Vein, Percutaneous Approach (ICD-10-PCS; 2020-04-19)
DX: D50.0 Iron deficiency anemia secondary to blood loss (chronic) (principal); N92.0 Excessive and frequent menstruation with regular cycle; D25.2 Subserosal leiomyoma of uterus; Z20.822 Contact with and (suspected) exposure to COVID-19
CPT/HCPCS: 36415; 76856; 80048; 80053; 82550; 82553; 82607; 82728; 83540; 84466; 84484; 85025; 86078; 86850; 86900; 86920; 96360; 99284; G0378; J1200; J7030; J7050; P9016; U0002

== ENCOUNTER 2020-07-04 16:29 | Emergency (ER) | payer SELFPAY ==
[~2020-07-04] VITALS: Ht 175.3 cm; Wt 83.9 kg
[~2020-07-04 16:29] MED LIST changes: +ADVIL200 M1; +BC POWDER PACK1 EAC1; +VICODIN HP 10-1 EAC1 PO
[2020-07-04 17:33] LABS: BASOPHILS # (AUTO) 0.1 (0.0-0.1); BASOPHILS % 1.3 % (0.0-1.0); EOSINOPHILS # (AUTO) 0.1 (0.0-0.4); EOSINOPHILS % 0.9 % (0.0-6.0); HEMATOCRIT 29.1 % (34.2-44.1); HEMOGLOBIN 7.6 g/dL (12.0-16.0); MEAN CORPUSCULAR HGB CONC 26.1 g/dL (31-35); MEAN CORPUSCULAR VOLUME 72.9 fL (81-99); MONOCYTES # (AUTO) 0.7 (0.2-0.8); MONOCYTES % 7.8 % (4.4-11.3); NEUTROPHILS # (AUTO) 6.5 (2.1-6.9); NEUTROPHILS % 68.1 % (38.7-80.0); PLATELET COUNT 525 x10e3/uL (140-360); RED BLOOD COUNT 3.99 x10e6/uL (3.6-5.1); RED CELL DISTRIBUTION WIDTH 23.4 % (11.7-14.4)
[2020-07-04 17:54] LABS: ALANINE AMINOTRANSFERASE 17 IU/L (0-55); ALBUMIN 4.4 g/dL (3.5-5.0); ALBUMIN/GLOBULIN RATIO 1.2 (0.8-2.0); ALKALINE PHOSPHATASE 67 IU/L (40-150); ANION GAP 15.8 mmol/L (8-16); BLOOD UREA NITROGEN 6 mg/dL (7-26); BUN/CREATININE RATIO 9 (6-25); CALCIUM 9.2 mg/dL (8.4-10.2); CARBON DIOXIDE 23 mmol/L (22-29); CHLORIDE 105 mmol/L (98-107); EST GLOMERULAR FILTRATION RATE > 60 ML/MIN (60-); GLUCOSE 91 mg/dL (74-118); POTASSIUM 3.8 mmol/L (3.5-5.1); SODIUM 140 mmol/L (136-145)
[2020-07-04 18:16] LABS: FREE THYROXINE INDEX 1.8653 (1.4-3.8); THYROID STIMULATING HORMONE 1.275 uIU/mL (0.350-4.940)
[2020-07-04 19:50] LABS: CLARITY,URINE TURBID (CLEAR); COLOR,URINE RED (YELLOW)
[2020-07-04 19:51] LABS: KETONES,URINE NEGATIVE (NEGATIVE); LEUKOCYTE ESTERASE ,URINE TRACE (NEGATIVE); NITRITE,URINE NEGATIVE (NEGATIVE); PROTEIN,URINE DIPSTICK 2+ (NEGATIVE)
[2020-07-04 19:52] LABS: URINE UROBILINOGEN 0.2 mg/dL (0.2 - 1)
[2020-07-04] MEDS ORDERED: ACETAMINOPHEN 325 MG TAB PO ONE (20:00)
[2020-07-04 20:01] LABS: BACTERIA,URINE RARE /HPF; EPITHELIAL CELLS,URINE RARE /LPF; RBC,URINE >50 /HPF (0-5)
[2020-07-04] MEDS ORDERED: PENICILLIN V P500 MG PO (20:20)
[2020-07-04 20:41] VITALS: BP 114/62
== END 2020-07-04 20:45 | disposition home or self-care (01) ==
LOC: ER 17:00
DX: K08.89 Other specified disorders of teeth and supporting structures (principal); K02.9 Dental caries, unspecified; D64.9 Anemia, unspecified; F17.210 Nicotine dependence, cigarettes, uncomplicated
CPT/HCPCS: 36415; 80053; 81001; 82550; 84436; 84443; 84479; 84702; 85025; 93005

== ENCOUNTER 2020-07-08 14:54 | Emergency (ER) | payer SELFPAY ==
[~2020-07-08] VITALS: Ht 175.3 cm; Wt 83.9 kg
[~2020-07-08 14:54] MED LIST changes: +PENICILLIN V P500 MG PO
[2020-07-08 16:00] LABS: AMPHETAMINES SCREEN,URINE NEGATIVE (NEGATIVE); BENZODIAZEPINES SCREEN,URINE NEGATIVE (NEGATIVE); PHENCYCLIDINE SCREEN,URINE NEGATIVE (NEGATIVE)
[2020-07-08 16:01] LABS: CLARITY,URINE CLEAR (CLEAR); COLOR,URINE YELLOW (YELLOW); KETONES,URINE NEGATIVE (NEGATIVE); LEUKOCYTE ESTERASE ,URINE NEGATIVE (NEGATIVE); NITRITE,URINE NEGATIVE (NEGATIVE); PROTEIN,URINE DIPSTICK NEGATIVE (NEGATIVE); URINE UROBILINOGEN 0.2 mg/dL (0.2 - 1)
[2020-07-08 16:12] LABS: WBC,URINE (MAN) 0-5 /HPF (0-5)
[2020-07-08 16:23] LABS: BASOPHILS # (AUTO) 0.1 (0.0-0.1); EOSINOPHILS % 0.2 % (0.0-6.0); HEMATOCRIT 28.1 % (34.2-44.1); HEMOGLOBIN 7.4 g/dL (12.0-16.0); LYMPHOCYTES # (AUTO) 1.2 (1.0-3.2); MEAN CORPUSCULAR HEMOGLOBIN 18.7 pg (28-32); MEAN CORPUSCULAR HGB CONC 26.3 g/dL (31-35); MEAN CORPUSCULAR VOLUME 71.1 fL (81-99); MONOCYTES # (AUTO) 0.8 (0.2-0.8); MONOCYTES % 6.6 % (4.4-11.3); NEUTROPHILS # (AUTO) 9.4 (2.1-6.9); NEUTROPHILS % 81.7 % (38.7-80.0); PLATELET COUNT 665 x10e3/uL (140-360); RED BLOOD COUNT 3.95 x10e6/uL (3.6-5.1); RED CELL DISTRIBUTION WIDTH 22.1 % (11.7-14.4)
[2020-07-08] MEDS ORDERED: SODIUM CHLORIDE 0.9% 1000ML 1,000 ML ONE (16:24)
[2020-07-08 16:49] LABS: ALANINE AMINOTRANSFERASE 20 IU/L (0-55); ALBUMIN 4.6 g/dL (3.5-5.0); ALBUMIN/GLOBULIN RATIO 1.2 (0.8-2.0); ALKALINE PHOSPHATASE 66 IU/L (40-150); ANION GAP 17.6 mmol/L (8-16); BLOOD UREA NITROGEN 7 mg/dL (7-26); BUN/CREATININE RATIO 10 (6-25); CALCIUM 9.4 mg/dL (8.4-10.2); CARBON DIOXIDE 23 mmol/L (22-29); CHLORIDE 103 mmol/L (98-107); CREATININE, SERUM 0.71 mg/dL (0.57-1.11); EST GLOMERULAR FILTRATION RATE > 60 ML/MIN (60-); GLUCOSE 112 mg/dL (74-118); POTASSIUM 3.6 mmol/L (3.5-5.1); SODIUM 140 mmol/L (136-145)
[2020-07-08] MEDS ORDERED: KETOROLAC TROMETHAMINE 30 MG/ML VIAL IV ONE (16:53)
[2020-07-08 17:27] LABS: CREATINE KINASE MB 0.3 ng/mL (0-5.0)
== END 2020-07-08 18:10 | disposition home or self-care (01) ==
LOC: ER 15:00
DX: F10.139 Alcohol abuse with withdrawal, unspecified (principal); D64.9 Anemia, unspecified
CPT/HCPCS: 36415; 70450; 80053; 80307; 80320; 81001; 82550; 82553; 84484; 85025; 93005; 99282; J7030

== ENCOUNTER 2020-08-11 23:50 | Emergency (ER) | payer SELFPAY ==
[~2020-08-11] VITALS: Ht 175.3 cm; Wt 83.9 kg
[2020-08-12 00:47] LABS: BASOPHILS # (AUTO) 0.1 (0.0-0.1); BASOPHILS % 0.8 % (0.0-1.0); EOSINOPHILS # (AUTO) 0.1 (0.0-0.4); EOSINOPHILS % 0.7 % (0.0-6.0); LYMPHOCYTES % 21.9 % (18.0-39.1); MEAN CORPUSCULAR HEMOGLOBIN 16.9 pg (28-32); MEAN CORPUSCULAR HGB CONC 24.9 g/dL (31-35); MEAN CORPUSCULAR VOLUME 68.1 fL (81-99); MONOCYTES # (AUTO) 0.8 (0.2-0.8); MONOCYTES % 8.7 % (4.4-11.3); NEUTROPHILS # (AUTO) 6.2 (2.1-6.9); NEUTROPHILS % 67.5 % (38.7-80.0); PLATELET COUNT 424 x10e3/uL (140-360); RED CELL DISTRIBUTION WIDTH 21.2 % (11.7-14.4)
[2020-08-12 00:52] LABS: HEMATOCRIT 17.7 % (34.2-44.1); HEMOGLOBIN 4.4 g/dL (12.0-16.0)
[2020-08-12 02:01] LABS: CLARITY,URINE CLEAR (CLEAR); COLOR,URINE YELLOW (YELLOW); KETONES,URINE NEGATIVE (NEGATIVE); LEUKOCYTE ESTERASE ,URINE NEGATIVE (NEGATIVE); NITRITE,URINE NEGATIVE (NEGATIVE); PROTEIN,URINE DIPSTICK NEGATIVE (NEGATIVE)
[2020-08-12 02:02] LABS: AMPHETAMINES SCREEN,URINE NEGATIVE (NEGATIVE); BENZODIAZEPINES SCREEN,URINE NEGATIVE (NEGATIVE); PHENCYCLIDINE SCREEN,URINE NEGATIVE (NEGATIVE); URINE UROBILINOGEN 0.2 mg/dL (0.2 - 1)
[2020-08-12 02:12] LABS: BACTERIA,URINE MODERATE /HPF; EPITHELIAL CELLS,URINE MODERATE /LPF; RBC,URINE >50 /HPF (0-5)
[2020-08-12] MEDS ORDERED: PANTOPRAZOLE 40 MG 10ML VIAL IV STA (03:14)
[2020-08-12 03:23] LABS: ALANINE AMINOTRANSFERASE 13 IU/L (0-55); ALBUMIN 3.9 g/dL (3.5-5.0); ALBUMIN/GLOBULIN RATIO 1.3 (0.8-2.0); ALKALINE PHOSPHATASE 62 IU/L (40-150); ANION GAP 14.4 mmol/L (8-16); BLOOD UREA NITROGEN 8 mg/dL (7-26); BUN/CREATININE RATIO 13 (6-25); CALCIUM 9.1 mg/dL (8.4-10.2); CARBON DIOXIDE 22 mmol/L (22-29); CHLORIDE 104 mmol/L (98-107); CREATININE, SERUM 0.63 mg/dL (0.57-1.11); EST GLOMERULAR FILTRATION RATE > 60 ML/MIN (60-); GLUCOSE 89 mg/dL (74-118); POTASSIUM 3.4 mmol/L (3.5-5.1); SODIUM 137 mmol/L (136-145)
== END 2020-08-12 04:48 | disposition other institution (70) ==
LOC: ER 08-12 00:08
DX: N92.0 Excessive and frequent menstruation with regular cycle (principal); R06.00 Dyspnea, unspecified; D64.9 Anemia, unspecified; D25.9 Leiomyoma of uterus, unspecified
CPT/HCPCS: 36415; 71045; 80053; 80307; 81001; 81025; 85025; 86850; 86900; 93005; 99284; C9113; U0002

== ENCOUNTER 2020-10-03 18:49 | Emergency (ER) | payer SELFPAY ==
[~2020-10-03] VITALS: Ht 175.3 cm; Wt 83.9 kg
[2020-10-03 20:52] LABS: BASOPHILS # (AUTO) 0.1 (0.0-0.1); BASOPHILS % 1.1 % (0.0-1.0); EOSINOPHILS % 0.2 % (0.0-6.0); HEMATOCRIT 25.3 % (34.2-44.1); LYMPHOCYTES # (AUTO) 1.2 (1.0-3.2); LYMPHOCYTES % 19.6 % (18.0-39.1); MEAN CORPUSCULAR HEMOGLOBIN 19.1 pg (28-32); MEAN CORPUSCULAR HGB CONC 26.1 g/dL (31-35); MEAN CORPUSCULAR VOLUME 73.3 fL (81-99); MONOCYTES # (AUTO) 0.8 (0.2-0.8); MONOCYTES % 13.4 % (4.4-11.3); NEUTROPHILS # (AUTO) 4.1 (2.1-6.9); NEUTROPHILS % 65.4 % (38.7-80.0); PLATELET COUNT 329 x10e3/uL (140-360); RED BLOOD COUNT 3.45 x10e6/uL (3.6-5.1); RED CELL DISTRIBUTION WIDTH 19.3 % (11.7-14.4)
[2020-10-03 20:58] LABS: CLARITY,URINE SL CLOUDY (CLEAR); COLOR,URINE STRAW (YELLOW); KETONES,URINE NEGATIVE (NEGATIVE); LEUKOCYTE ESTERASE ,URINE NEGATIVE (NEGATIVE); NITRITE,URINE NEGATIVE (NEGATIVE); PROTEIN,URINE DIPSTICK NEGATIVE (NEGATIVE); URINE UROBILINOGEN 1 mg/dL (0.2 - 1)
[2020-10-03 21:00] LABS: HEMOGLOBIN 6.6 g/dL (12.0-16.0)
[2020-10-03 21:04] LABS: BACTERIA,URINE RARE /HPF; RBC,URINE 21-50 /HPF (0-5); WBC,URINE (MAN) 0-5 /HPF (0-5)
[2020-10-03 21:05] LABS: EPITHELIAL CELLS,URINE RARE /LPF
[2020-10-03] MEDS ORDERED: SODIUM CHLORIDE 0.9% 250ML 250 ML IV ONE (21:30)
[2020-10-04] MEDS ORDERED: SODIUM CHLORIDE 0.9% 250ML 250 ML ONE ×2 (02:40→06:00)
[2020-10-04] MEDS ORDERED: Vancomycin IV 1 GM VIAL ONE (05:59)
[2020-10-04] MEDS ORDERED: VANCOMYCIN 250MG/5ML ORAL SOLN ONE (06:09)
[2020-10-04 06:35] VITALS: BP 115/64
== END 2020-10-04 06:00 | disposition home or self-care (01) ==
LOC: ER 20:05
DX: D64.9 Anemia, unspecified (principal); R53.83 Other fatigue
CPT/HCPCS: 36415; 71045; 81001; 81025; 85025; 86850; 86900; 86920; 93005; 99283; J7050; P9016; J3370

== ENCOUNTER 2020-10-27 14:38 | Emergency (ER) | payer SELFPAY ==
[~2020-10-27] VITALS: Ht 175.3 cm; Wt 83.9 kg
[2020-10-27 15:22] LABS: BASOPHILS # (AUTO) 0.1 (0.0-0.1); BASOPHILS % 1.1 % (0.0-1.0); EOSINOPHILS # (AUTO) 0.1 (0.0-0.4); EOSINOPHILS % 0.4 % (0.0-6.0); HEMATOCRIT 25.9 % (34.2-44.1); LYMPHOCYTES # (AUTO) 1.8 (1.0-3.2); LYMPHOCYTES % 15.3 % (18.0-39.1); MEAN CORPUSCULAR HEMOGLOBIN 19.3 pg (28-32); MEAN CORPUSCULAR HGB CONC 26.3 g/dL (31-35); MEAN CORPUSCULAR VOLUME 73.4 fL (81-99); MONOCYTES # (AUTO) 0.7 (0.2-0.8); MONOCYTES % 5.6 % (4.4-11.3); NEUTROPHILS # (AUTO) 9.1 (2.1-6.9); NEUTROPHILS % 77.3 % (38.7-80.0); PLATELET COUNT 440 x10e3/uL (140-360); RED BLOOD COUNT 3.53 x10e6/uL (3.6-5.1); RED CELL DISTRIBUTION WIDTH 20.1 % (11.7-14.4)
[2020-10-27 15:24] LABS: HEMOGLOBIN 6.8 g/dL (12.0-16.0)
[2020-10-27] MEDS ORDERED: SODIUM CHLORIDE 0.9% 250ML 250 ML IV ONE (15:30)
[2020-10-27] MEDS ORDERED: SODIUM CHLORIDE 0.9% 250ML 250 ML ONE (21:24)
[2020-10-28 00:59] LABS: HEMATOCRIT 27.6 % (34.2-44.1); HEMOGLOBIN 7.9 g/dL (12.0-16.0)
[2020-10-28 01:38] VITALS: BP 117/64
== END 2020-10-28 01:45 | disposition home or self-care (01) ==
LOC: ER 15:15
DX: D50.0 Iron deficiency anemia secondary to blood loss (chronic) (principal); N93.8 Other specified abnormal uterine and vaginal bleeding
CPT/HCPCS: 36415; 36430; 85014; 85018; 85025; 86850; 86900; 86920; 99284; J7050; P9016

== ENCOUNTER 2020-11-14 13:13 | Emergency (ER) | payer SELFPAY ==
[~2020-11-14] VITALS: Ht 175.3 cm; Wt 83.9 kg
[2020-11-14] MEDS ORDERED: SODIUM CHLORIDE 0.9% 1000ML 1,000 ML IV STA (13:56)
[2020-11-14 14:52] LABS: BASOPHILS # (AUTO) 0.1 (0.0-0.1); BASOPHILS % 0.7 % (0.0-1.0); EOSINOPHILS % 0.3 % (0.0-6.0); HEMATOCRIT 29.7 % (34.2-44.1); HEMOGLOBIN 7.9 g/dL (12.0-16.0); LYMPHOCYTES # (AUTO) 1.4 (1.0-3.2); LYMPHOCYTES % 12.1 % (18.0-39.1); MEAN CORPUSCULAR HEMOGLOBIN 19.6 pg (28-32); MEAN CORPUSCULAR HGB CONC 26.6 g/dL (31-35); MEAN CORPUSCULAR VOLUME 73.5 fL (81-99); MONOCYTES # (AUTO) 0.8 (0.2-0.8); MONOCYTES % 6.8 % (4.4-11.3); NEUTROPHILS # (AUTO) 9.2 (2.1-6.9); NEUTROPHILS % 79.6 % (38.7-80.0); PLATELET COUNT 461 x10e3/uL (140-360); RED BLOOD COUNT 4.04 x10e6/uL (3.6-5.1)
[2020-11-14 15:05] LABS: ANION GAP 15.5 mmol/L (8-16); BLOOD UREA NITROGEN 4 mg/dL (7-26); BUN/CREATININE RATIO 6 (6-25); CARBON DIOXIDE 22 mmol/L (22-29); CHLORIDE 106 mmol/L (98-107); CREATININE, SERUM 0.67 mg/dL (0.57-1.11); EST GLOMERULAR FILTRATION RATE 99 ML/MIN (60-); POTASSIUM 3.5 mmol/L (3.5-5.1); SODIUM 140 mmol/L (136-145)
[2020-11-14 15:06] LABS: ALANINE AMINOTRANSFERASE 11 IU/L (0-55); ALBUMIN 4.4 g/dL (3.5-5.0); ALBUMIN/GLOBULIN RATIO 1.2 (0.8-2.0); ALKALINE PHOSPHATASE 71 IU/L (40-150); CALCIUM 9.7 mg/dL (8.4-10.2); GLUCOSE 131 mg/dL (74-118)
[2020-11-14 16:44] VITALS: BP 113/78
== END 2020-11-14 16:47 | disposition home or self-care (01) ==
LOC: ER 14:22
DX: D64.9 Anemia, unspecified (principal)
CPT/HCPCS: 36415; 80053; 84702; 85025; 99284; J7030; U0002

== ENCOUNTER 2020-12-30 21:25 | Emergency (ER) | payer SELFPAY ==
[~2020-12-30] VITALS: Ht 175.3 cm; Wt 83.5 kg
[2020-12-30] MEDS ORDERED: KETOROLAC TROMETHAMINE 30 MG/ML VIAL IV STA (21:38)
[2020-12-30 21:57] LABS: BASOPHILS # (AUTO) 0.2 (0.0-0.1); BASOPHILS % 1.5 % (0.0-1.0); EOSINOPHILS # (AUTO) 0.2 (0.0-0.4); EOSINOPHILS % 2.3 % (0.0-6.0); HEMATOCRIT 35.9 % (34.2-44.1); HEMOGLOBIN 10.3 g/dL (12.0-16.0); MEAN CORPUSCULAR HEMOGLOBIN 21.7 pg (28-32); MEAN CORPUSCULAR HGB CONC 28.7 g/dL (31-35); MEAN CORPUSCULAR VOLUME 75.6 fL (81-99); MONOCYTES # (AUTO) 0.7 (0.2-0.8); MONOCYTES % 7.1 % (4.4-11.3); NEUTROPHILS # (AUTO) 6.9 (2.1-6.9); NEUTROPHILS % 68.7 % (38.7-80.0); PLATELET COUNT 543 x10e3/uL (140-360); RED BLOOD COUNT 4.75 x10e6/uL (3.6-5.1); RED CELL DISTRIBUTION WIDTH 21.9 % (11.7-14.4)
[2020-12-30 22:16] LABS: BLOOD UREA NITROGEN < 5 mg/dL (7-26); CALCIUM 9.7 mg/dL (8.4-10.2); CARBON DIOXIDE 21 mmol/L (22-29); CHLORIDE 106 mmol/L (98-107); CREATINE KINASE 32 IU/L (29-168); CREATININE, SERUM 0.78 mg/dL (0.57-1.11); EST GLOMERULAR FILTRATION RATE 83 ML/MIN (60-); GLUCOSE 100 mg/dL (74-118); SODIUM 141 mmol/L (136-145)
[2020-12-30 22:21] LABS: BUN/CREATININE RATIO 6 (6-25); CREATINE KINASE MB < 1.00 ng/mL (0-4.3)
== END 2020-12-30 23:58 | disposition home or self-care (01) ==
LOC: ER 21:39
DX: R07.89 Other chest pain (principal); D64.9 Anemia, unspecified; F17.210 Nicotine dependence, cigarettes, uncomplicated
CPT/HCPCS: 36415; 71046; 80048; 82550; 82553; 84484; 85025; 85379; 93005; 99284

== ENCOUNTER → 2021-01-16 | Day surgery (SDC) | payer SELFPAY ==
[~2021-01-16] VITALS: Ht 175.3 cm; Wt 83.5 kg
[~2021-01-16] MED LIST changes: +DONNATAL/LIDOCAINE/MAALOX 30 ML SUSP PO SCH; +GLUCAGON FOR INJ 1 MG VIAL IM ONE; +LIDOCAINE VISC 2% SOLN 15 ML UDC ONE; +PANTOPRAZOLE SO40 MG PO; +SODIUM CHLORIDE 0.9% 1000ML 1,000 ML IV SCH
[2021-01-16 20:27] LABS: BASOPHILS # (AUTO) 0.1 (0.0-0.1); BASOPHILS % 0.7 % (0.0-1.0); EOSINOPHILS # (AUTO) 0.2 (0.0-0.4); EOSINOPHILS % 1.2 % (0.0-6.0); HEMATOCRIT 39.8 % (34.2-44.1); HEMOGLOBIN 11.3 g/dL (12.0-16.0); LYMPHOCYTES # (AUTO) 2.1 (1.0-3.2); LYMPHOCYTES % 10.7 % (18.0-39.1); MEAN CORPUSCULAR HEMOGLOBIN 21.9 pg (28-32); MEAN CORPUSCULAR HGB CONC 28.4 g/dL (31-35); MONOCYTES # (AUTO) 1.2 (0.2-0.8); MONOCYTES % 6.2 % (4.4-11.3); NEUTROPHILS # (AUTO) 15.4 (2.1-6.9); NEUTROPHILS % 80.7 % (38.7-80.0); PLATELET COUNT 266 x10e3/uL (140-360); RED BLOOD COUNT 5.17 x10e6/uL (3.6-5.1); RED CELL DISTRIBUTION WIDTH 21.7 % (11.7-14.4)
[2021-01-16 20:41] LABS: ANION GAP 15.6 mmol/L (8-16); BLOOD UREA NITROGEN < 5 mg/dL (7-26); CALCIUM 9.4 mg/dL (8.4-10.2); CARBON DIOXIDE 23 mmol/L (22-29); CHLORIDE 105 mmol/L (98-107); CREATININE, SERUM 0.66 mg/dL (0.57-1.11); EST GLOMERULAR FILTRATION RATE 100 ML/MIN (60-); GLUCOSE 78 mg/dL (74-118); POTASSIUM 3.6 mmol/L (3.5-5.1); SODIUM 140 mmol/L (136-145)
[2021-01-16 20:43] LABS: BUN/CREATININE RATIO 8 (6-25)
== END | disposition home or self-care (01) ==
LOC: ER 17:53 → ENDO 20:22
PROVIDERS: ATTEND Internal Medicine Gastroenterology
DX: T18.128A Food in esophagus causing other injury, initial encounter (principal); K29.50 Unspecified chronic gastritis without bleeding; K25.9 Gastric ulcer, unspecified as acute or chronic, without hemorrhage or perforation; K29.80 Duodenitis without bleeding; K20.90 Esophagitis, unspecified without bleeding; K31.89 Other diseases of stomach and duodenum; F17.210 Nicotine dependence, cigarettes, uncomplicated; X58.XXXA Exposure to other specified factors, initial encounter; Z88.6 Allergy status to analgesic agent; Z79.82 Long term (current) use of aspirin
CPT/HCPCS: 36415; 43239; 43450; 70360; 80048; 85025; 88305; 88312; 88342; 99284; C9113; J1610

== ENCOUNTER 2021-01-17 20:33 | Emergency (ER) | payer SELFPAY ==
[~2021-01-17] VITALS: Ht 175.3 cm; Wt 77.1 kg
[~2021-01-17 20:33] MED LIST changes: -DONNATAL/LIDOCAINE/MAALOX 30 ML SUSP PO SCH; -GLUCAGON FOR INJ 1 MG VIAL IM ONE; -LIDOCAINE VISC 2% SOLN 15 ML UDC ONE; -PANTOPRAZOLE SO40 MG PO; -SODIUM CHLORIDE 0.9% 1000ML 1,000 ML IV SCH
[2021-01-17] MEDS ORDERED: DONNATAL/LIDOCAINE/MAALOX 30 ML SUSP PO STA (21:19)
[2021-01-17] MEDS ORDERED: LIDOCAINE VISC 2% SOLN 15 ML UDC ONE (21:29)
[2021-01-17] MEDS ORDERED: MAGNESIUM/ALUMINUM/SIMETHICONE 30 ML UDC ONE (21:29)
[2021-01-17] MEDS ORDERED: BELLADONNA ALK/PHENOBARBITAL 5 ML UDC ONE (21:29)
[2021-01-17 22:34] VITALS: BP 102/78
== END 2021-01-17 22:30 | disposition home or self-care (01) ==
LOC: ER 21:13
DX: R07.89 Other chest pain (principal); R10.13 Epigastric pain; R20.0 Anesthesia of skin; D64.9 Anemia, unspecified
CPT/HCPCS: 71046; 93005; 99282

== ENCOUNTER 2021-01-19 21:57 | Emergency (ER) | payer SELFPAY ==
[~2021-01-19] VITALS: Ht 175.3 cm; Wt 77.1 kg
== END 2021-01-19 22:08 | disposition home or self-care (01) ==
LOC: ER 22:01
DX: R07.0 Pain in throat (principal); R68.84 Jaw pain; D64.9 Anemia, unspecified

== ENCOUNTER 2021-01-22 14:11 | Emergency (ER) | payer OTHER ==
[~2021-01-22] VITALS: Ht 175.3 cm; Wt 77.1 kg
[2021-01-22] MEDS ORDERED: LIDOCAINE VISC 2% SOLN 15 ML UDC ONE (17:00)
[2021-01-22] MEDS ORDERED: MAGNESIUM/ALUMINUM/SIMETHICONE 30 ML UDC ONE (17:00)
[2021-01-22] MEDS ORDERED: BELLADONNA ALK/PHENOBARBITAL 5 ML UDC ONE (17:00)
[2021-01-22] MEDS ORDERED: DONNATAL/LIDOCAINE/MAALOX 30 ML SUSP PO ONE (17:00)
[2021-01-22] MEDS ORDERED: PANTOPRAZOLE SO40 MG PO (19:03)
== END 2021-01-22 19:27 | disposition home or self-care (01) ==
LOC: FSED 14:19
DX: R13.10 Dysphagia, unspecified (principal); K20.90 Esophagitis, unspecified without bleeding; D64.9 Anemia, unspecified
CPT/HCPCS: 70360; 80053; 81003; 81025; 85025; 99283

== ENCOUNTER → 2021-01-24 | Outpatient (CLI) | payer OTHER ==
[~2021-01-24] MED LIST changes: +PANTOPRAZOLE SO40 MG PO
== END ==
LOC: DX 09:51
PROVIDERS: ATTEND Internal Medicine Gastroenterology
DX: R47.02 Dysphasia (principal); K21.9 Gastro-esophageal reflux disease without esophagitis
CPT/HCPCS: 74230; U0002

== ENCOUNTER → 2021-02-22 | Day surgery (SDC) | payer BC, OTHER ==
[~2021-02-22] MED LIST changes: +ACETAMINOPHEN650 M1 PO; +ATIVAN1 MG PO; +FENTANYL CITRATE/PF 100MCG/2 ML INJ ONE; +FEROSUL325 MG PO; +LIDOCAINE HCL 2% LOCAL INJ 5 ML SDV VIAL INJ ONE; +METOCLOPRAMIDE HCL 10 MG/2ML VIAL ONE; +MIDAZOLAM HCL 2 MG/2 ML VIAL ONE; +MYLANTA MAXIMUM10 ML; +MYLANTA MAXIMUM10 ML PO; +PROPOFOL IV EMULSION 10 MG/ML 20 ML VIAL ONE; +ZOLOFT50 MG PO
[2021-02-22 08:00] VITALS: BP 112/62
== END | disposition home or self-care (01) ==
LOC: ENDO 05:37
PROVIDERS: ATTEND Internal Medicine Gastroenterology
DX: K20.90 Esophagitis, unspecified without bleeding (principal); K29.70 Gastritis, unspecified, without bleeding; K29.80 Duodenitis without bleeding; K21.9 Gastro-esophageal reflux disease without esophagitis; D64.9 Anemia, unspecified; M19.90 Unspecified osteoarthritis, unspecified site; F32.A Depression, unspecified; F41.9 Anxiety disorder, unspecified; Z88.6 Allergy status to analgesic agent; Z01.812 Encounter for preprocedural laboratory examination; Z20.822 Contact with and (suspected) exposure to COVID-19; Z79.899 Other long term (current) drug therapy; Z68.25 Body mass index [BMI] 25.0-25.9, adult
CPT/HCPCS: 43239; 43450; J2001; J2250; J2765; J3010; U0002

== ENCOUNTER 2021-03-11 14:15 | Emergency (ER) | payer OTHER ==
[~2021-03-11] VITALS: Ht 175.3 cm; Wt 77.1 kg
[~2021-03-11 14:15] MED LIST changes: -FENTANYL CITRATE/PF 100MCG/2 ML INJ ONE; -LIDOCAINE HCL 2% LOCAL INJ 5 ML SDV VIAL INJ ONE; -METOCLOPRAMIDE HCL 10 MG/2ML VIAL ONE; -MIDAZOLAM HCL 2 MG/2 ML VIAL ONE; -PROPOFOL IV EMULSION 10 MG/ML 20 ML VIAL ONE
== END 2021-03-11 17:43 | disposition home or self-care (01) ==
LOC: ER 15:27
DX: R50.9 Fever, unspecified (principal); J06.9 Acute upper respiratory infection, unspecified; H92.03 Otalgia, bilateral; R51.9 Headache, unspecified; D64.9 Anemia, unspecified; F17.210 Nicotine dependence, cigarettes, uncomplicated
CPT/HCPCS: 83518; 87070; 99282; U0002

== ENCOUNTER 2021-03-28 13:39 | Emergency (ER) | payer SELFPAY ==
[~2021-03-28] VITALS: Ht 175.3 cm; Wt 68.9 kg
[2021-03-28] MEDS ORDERED: DONNATAL/LIDOCAINE/MAALOX 30 ML SUSP PO ONE (14:30)
[2021-03-28] MEDS ORDERED: ONDANSETRON HCL 4 MG ORAL DISINTEGRATING TAB PO ONE (14:30)
[2021-03-28] MEDS ORDERED: GLUCAGON FOR INJ 1 MG VIAL INJ ONE (14:30)
[2021-03-28] MEDS ORDERED: GLUCAGON FOR INJ 1 MG VIAL ONE (15:15)
[2021-03-28] MEDS ORDERED: MAGNESIUM/ALUMINUM/SIMETHICONE 30 ML UDC ONE (15:15)
[2021-03-28] MEDS ORDERED: BELLADONNA ALK/PHENOBARBITAL 5 ML UDC ONE (15:15)
== END 2021-03-28 16:46 | disposition home or self-care (01) ==
LOC: FSED 14:22
DX: T18.128A Food in esophagus causing other injury, initial encounter (principal); K22.2 Esophageal obstruction; R13.19 Other dysphagia; K21.9 Gastro-esophageal reflux disease without esophagitis; D64.9 Anemia, unspecified; F17.210 Nicotine dependence, cigarettes, uncomplicated
CPT/HCPCS: 36415; 82948; 99282; J1610; Q0162

== ENCOUNTER 2021-04-21 13:15 | Emergency (ER) | payer OTHER ==
[~2021-04-21] VITALS: Ht 175.3 cm; Wt 70.8 kg
[2021-04-21] MEDS ORDERED: BELLADONNA ALK/PHENOBARBITAL 5 ML UDC PO ONE (13:45)
[2021-04-21] MEDS ORDERED: MAGNESIUM/ALUMINUM/SIMETHICONE 30 ML UDC PO ONE (13:45)
== END 2021-04-21 14:10 | disposition home or self-care (01) ==
LOC: ER 13:22
DX: J39.2 Other diseases of pharynx (principal); K21.9 Gastro-esophageal reflux disease without esophagitis; D64.9 Anemia, unspecified
CPT/HCPCS: 99282

== ENCOUNTER 2021-05-07 12:42 | Emergency (ER) | payer OTHER ==
[~2021-05-07] VITALS: Ht 175.3 cm; Wt 57.2 kg
[2021-05-07] MEDS ORDERED: ASPIRIN 325 MG TAB PO ONE (13:15)
[2021-05-07 14:00] LABS: BASOPHILS # (AUTO) 0.1 (0.0-0.1); BASOPHILS % 0.8 % (0.0-1.0); EOSINOPHILS # (AUTO) 0.1 (0.0-0.4); EOSINOPHILS % 0.8 % (0.0-6.0); HEMATOCRIT 46.7 % (34.2-44.1); HEMOGLOBIN 14.5 g/dL (12.0-16.0); LYMPHOCYTES # (AUTO) 1.4 (1.0-3.2); LYMPHOCYTES % 14.8 % (18.0-39.1); MEAN CORPUSCULAR HEMOGLOBIN 25.8 pg (28-32); MEAN CORPUSCULAR VOLUME 82.9 fL (81-99); MONOCYTES # (AUTO) 0.7 (0.2-0.8); MONOCYTES % 7.4 % (4.4-11.3); NEUTROPHILS % 75.7 % (38.7-80.0); PLATELET COUNT 280 x10e3/uL (140-360); RED BLOOD COUNT 5.63 x10e6/uL (3.6-5.1); RED CELL DISTRIBUTION WIDTH 20.9 % (11.7-14.4)
[2021-05-07 14:23] LABS: ALANINE AMINOTRANSFERASE 12 IU/L (0-55); ALBUMIN 4.2 g/dL (3.5-5.0); ALBUMIN/GLOBULIN RATIO 1.1 (0.8-2.0); ALKALINE PHOSPHATASE 78 IU/L (40-150); BLOOD UREA NITROGEN < 5 mg/dL (7-26); CALCIUM 9.9 mg/dL (8.4-10.2); CARBON DIOXIDE 25 mmol/L (22-29); CHLORIDE 103 mmol/L (98-107); CREATININE, SERUM 0.66 mg/dL (0.57-1.11); EST GLOMERULAR FILTRATION RATE 100 ML/MIN (60-); GLUCOSE 89 mg/dL (74-118); SODIUM 139 mmol/L (136-145)
[2021-05-07 14:25] LABS: BUN/CREATININE RATIO 8 (6-25)
[2021-05-07] MEDS ORDERED: METHOCARBAMOL750 MG PO ×2 (14:42→14:48)
== END 2021-05-07 14:50 | disposition home or self-care (01) ==
LOC: ER 12:45
DX: M94.0 Chondrocostal junction syndrome [Tietze] (principal); K21.9 Gastro-esophageal reflux disease without esophagitis; D64.9 Anemia, unspecified
CPT/HCPCS: 36415; 71046; 80053; 84484; 85025; 93005; 99283

== ENCOUNTER 2021-07-02 14:02 | Emergency (ER) | payer OTHER ==
[~2021-07-02] VITALS: Ht 175.3 cm; Wt 57.2 kg
[~2021-07-02 14:02] MED LIST changes: +METHOCARBAMOL750 MG PO
[2021-07-02] MEDS ORDERED: CYCLOBENZAPRINE5 MG PO (14:24)
== END 2021-07-02 14:30 | disposition home or self-care (01) ==
LOC: ER 14:05
DX: R20.0 Anesthesia of skin (principal); K14.9 Disease of tongue, unspecified; D64.9 Anemia, unspecified; K21.9 Gastro-esophageal reflux disease without esophagitis; F41.9 Anxiety disorder, unspecified; F17.210 Nicotine dependence, cigarettes, uncomplicated
CPT/HCPCS: 99282

== ENCOUNTER 2021-07-14 11:21 | Observation (INO) | payer OTHER ==
[~2021-07-14] VITALS: Ht 175.3 cm; Wt 63.0 kg
[~2021-07-14 11:21] MED LIST changes: +CYCLOBENZAPRINE5 MG PO
[2021-07-14] MEDS ORDERED: SODIUM CHLORIDE 0.9% 1000ML 1,000 ML IV STA (11:38)
[2021-07-14 11:55] LABS: BASOPHILS # (AUTO) 0.1 (0.0-0.1); BASOPHILS % 0.7 % (0.0-1.0); EOSINOPHILS # (AUTO) 0.1 (0.0-0.4); EOSINOPHILS % 1.2 % (0.0-6.0); HEMATOCRIT 45.8 % (34.2-44.1); HEMOGLOBIN 14.6 g/dL (12.0-16.0); LYMPHOCYTES # (AUTO) 1.4 (1.0-3.2); MEAN CORPUSCULAR HEMOGLOBIN 29.5 pg (28-32); MEAN CORPUSCULAR HGB CONC 31.9 g/dL (31-35); MEAN CORPUSCULAR VOLUME 92.5 fL (81-99); MONOCYTES # (AUTO) 0.6 (0.2-0.8); MONOCYTES % 5.5 % (4.4-11.3); NEUTROPHILS # (AUTO) 8.3 (2.1-6.9); NEUTROPHILS % 79.2 % (38.7-80.0); PLATELET COUNT 234 x10e3/uL (140-360); RED BLOOD COUNT 4.95 x10e6/uL (3.6-5.1); RED CELL DISTRIBUTION WIDTH 18.2 % (11.7-14.4)
[2021-07-14 12:04] LABS: INR 0.95; PROTHROMBIN TIME 13.5 seconds (11.9-14.5)
[2021-07-14 12:14] LABS: ALANINE AMINOTRANSFERASE 10 IU/L (0-55); ALBUMIN 3.9 g/dL (3.5-5.0); ALKALINE PHOSPHATASE 64 IU/L (40-150); ANION GAP 15.1 mmol/L (8-16); BLOOD UREA NITROGEN 6 mg/dL (7-26); BUN/CREATININE RATIO 9 (6-25); CALCIUM 9.8 mg/dL (8.4-10.2); CARBON DIOXIDE 23 mmol/L (22-29); CHLORIDE 104 mmol/L (98-107); CREATINE KINASE 18 IU/L (29-168); CREATININE, SERUM 0.69 mg/dL (0.57-1.11); EST GLOMERULAR FILTRATION RATE 95 ML/MIN (60-); GLUCOSE 89 mg/dL (74-118); POTASSIUM 4.1 mmol/L (3.5-5.1); SODIUM 138 mmol/L (136-145)
[2021-07-14] MEDS ORDERED: ENOXAPARIN SOD INJ 60 MG/0.6 ML SYR SC ONE (14:15)
[2021-07-14 16:45] LABS: AMPHETAMINES SCREEN,URINE NEGATIVE (NEGATIVE); BENZODIAZEPINES SCREEN,URINE POSITIVE (NEGATIVE); PHENCYCLIDINE SCREEN,URINE NEGATIVE (NEGATIVE)
[2021-07-14] MEDS ORDERED: ONDANSETRON HCL INJ 2MG/ML 2ML 2 MG/ML VIAL IV PRN (16:45)
[2021-07-14] MEDS ORDERED: FAMOTIDINE 20 MG/2 ML VIAL IV SCH (16:45)
[2021-07-14 16:46] LABS: CLARITY,URINE CLEAR (CLEAR); COLOR,URINE YELLOW (YELLOW); KETONES,URINE 1+ (NEGATIVE); LEUKOCYTE ESTERASE ,URINE NEGATIVE (NEGATIVE); NITRITE,URINE NEGATIVE (NEGATIVE); PROTEIN,URINE DIPSTICK NEGATIVE (NEGATIVE); URINE UROBILINOGEN 0.2 mg/dL (0.2 - 1)
[2021-07-14 16:50] LABS: BACTERIA,URINE RARE /HPF; EPITHELIAL CELLS,URINE RARE /LPF; RBC,URINE 0-5 /HPF (0-5); WBC,URINE (MAN) 0-5 /HPF (0-5)
[2021-07-14] MEDS ORDERED: LORAZEPAM 1 MG TAB PO ONE (17:00)
[2021-07-14] MEDS ORDERED: APIXABAN 5 MG TABLET PO SCH (17:00)
[2021-07-14] MEDS ORDERED: IOPAMIDOL 370 MG/ML 100 ML INFUS..BTL INJ ONE (17:00)
[2021-07-14 17:44] VITALS: BP 96/63
[2021-07-14 20:00] VITALS: BP 92/58
[2021-07-14 20:04] LABS: CREATINE KINASE 18 IU/L (29-168)
[2021-07-14 20:45] VITALS: BP 92/58
[2021-07-15] VITALS: BP 130/87
== END 2021-07-14 23:31 | disposition home or self-care (01) ==
LOC: ER 11:35 → ERHOLD 16:35 → MED/SURG 17:33
PROVIDERS: ADMIT Internal Medicine; ATTEND Internal Medicine
DX: T82.868A Thrombosis due to vascular prosthetic devices, implants and grafts, initial encounter (principal); I82.621 Acute embolism and thrombosis of deep veins of right upper extremity; D63.8 Anemia in other chronic diseases classified elsewhere; K21.9 Gastro-esophageal reflux disease without esophagitis; Z76.5 Malingerer [conscious simulation]; F17.210 Nicotine dependence, cigarettes, uncomplicated; Z88.5 Allergy status to narcotic agent; Z20.822 Contact with and (suspected) exposure to COVID-19
CPT/HCPCS: 36415; 71260; 80053; 80307; 81001; 82550; 82553; 83880; 84484; 85025; 85610; 85730; 93005; 93971; 94799; 99284; G0378; J1650; J2405; J7030; Q9967; U0002

== ENCOUNTER 2021-08-15 12:52 | Inpatient (IN) | payer OTHER ==
[~2021-08-15] VITALS: Ht 175.3 cm; Wt 63.0 kg
[2021-08-15] MEDS ORDERED: SODIUM CHLORIDE 0.9% 1000ML 1,000 ML IV ONE (13:15)
[2021-08-15 13:39] LABS: BASOPHILS # (AUTO) 0.1 (0.0-0.1); BASOPHILS % 0.6 % (0.0-1.0); EOSINOPHILS # (AUTO) 0.1 (0.0-0.4); EOSINOPHILS % 1.2 % (0.0-6.0); HEMATOCRIT 51.6 % (34.2-44.1); HEMOGLOBIN 16.7 g/dL (12.0-16.0); LYMPHOCYTES # (AUTO) 1.6 (1.0-3.2); LYMPHOCYTES % 16.8 % (18.0-39.1); MEAN CORPUSCULAR HEMOGLOBIN 30.6 pg (28-32); MEAN CORPUSCULAR HGB CONC 32.4 g/dL (31-35); MEAN CORPUSCULAR VOLUME 94.7 fL (81-99); MONOCYTES # (AUTO) 0.5 (0.2-0.8); MONOCYTES % 5.3 % (4.4-11.3); NEUTROPHILS # (AUTO) 7.2 (2.1-6.9); NEUTROPHILS % 75.7 % (38.7-80.0); PLATELET COUNT 222 x10e3/uL (140-360); RED BLOOD COUNT 5.45 x10e6/uL (3.6-5.1); RED CELL DISTRIBUTION WIDTH 16.3 % (11.7-14.4)
[2021-08-15 13:56] LABS: LIPASE 25 U/L (8-78)
[2021-08-15 13:58] LABS: ALANINE AMINOTRANSFERASE 13 IU/L (0-55); ALBUMIN 4.4 g/dL (3.5-5.0); ALKALINE PHOSPHATASE 74 IU/L (40-150); ANION GAP 17.7 mmol/L (8-16); BLOOD UREA NITROGEN < 5 mg/dL (7-26); CALCIUM 10.1 mg/dL (8.4-10.2); CARBON DIOXIDE 23 mmol/L (22-29); CHLORIDE 105 mmol/L (98-107); CREATININE, SERUM 0.75 mg/dL (0.57-1.11); GLUCOSE 93 mg/dL (74-118); POTASSIUM 3.7 mmol/L (3.5-5.1); SODIUM 142 mmol/L (136-145)
[2021-08-15] MEDS: ONDANSETRON HCL INJ 2MG/ML 2ML 2 MG/ML VIAL IV PRN (14:08)
[2021-08-15] MEDS: Morphine 4mg Syringe 4 MG/ML INJ IV PRN (14:08)
[2021-08-15 14:13] LABS: BUN/CREATININE RATIO 7 (6-25)
[2021-08-15 15:06] LABS: CLARITY,URINE CLEAR (CLEAR); COLOR,URINE YELLOW (YELLOW); KETONES,URINE NEGATIVE (NEGATIVE); LEUKOCYTE ESTERASE ,URINE NEGATIVE (NEGATIVE); NITRITE,URINE NEGATIVE (NEGATIVE); PROTEIN,URINE DIPSTICK NEGATIVE (NEGATIVE); URINE UROBILINOGEN 0.2 mg/dL (0.2 - 1)
[2021-08-15] MEDS ORDERED: ONDANSETRON HCL INJ 2MG/ML 2ML 2 MG/ML VIAL IV PRN (15:15)
[2021-08-15] MEDS ORDERED: Morphine 4mg Syringe 4 MG/ML INJ IV PRN (15:15)
[2021-08-15 15:16] LABS: EPITHELIAL CELLS,URINE RARE /LPF
[2021-08-15] MEDS: SODIUM CHLORIDE 0.9% 1000ML 1,000 ML IV SCH (15:42)
[2021-08-15 16:00] VITALS: BP 115/62
[2021-08-15] MEDS ORDERED: ELIQUIS5 MG PO (16:37)
[2021-08-15 16:40] VITALS: BP 115/62
[2021-08-15] MEDS ORDERED: METOPROLOL TARTRATE INJ 1 MG/ML VIAL IV PRN (19:00)
[2021-08-15 20:00] VITALS: BP 113/77
[2021-08-15 23:47] VITALS: BP 105/68
[2021-08-16] VITALS (7 sets, daily range): BP systolic 109–127; BP diastolic 62–74
[2021-08-16] MEDS: SODIUM CHLORIDE 0.9% 1000ML 1,000 ML IV SCH ×4 (02:00→16:27)
[2021-08-16 05:54] LABS: BASOPHILS # (AUTO) 0.1 (0.0-0.1); BASOPHILS % 0.9 % (0.0-1.0); EOSINOPHILS # (AUTO) 0.2 (0.0-0.4); EOSINOPHILS % 2.6 % (0.0-6.0); HEMATOCRIT 43.5 % (34.2-44.1); HEMOGLOBIN 13.6 g/dL (12.0-16.0); LYMPHOCYTES # (AUTO) 1.9 (1.0-3.2); LYMPHOCYTES % 27.6 % (18.0-39.1); MEAN CORPUSCULAR HEMOGLOBIN 30.4 pg (28-32); MEAN CORPUSCULAR HGB CONC 31.3 g/dL (31-35); MEAN CORPUSCULAR VOLUME 97.3 fL (81-99); MONOCYTES # (AUTO) 0.7 (0.2-0.8); MONOCYTES % 9.3 % (4.4-11.3); NEUTROPHILS # (AUTO) 4.2 (2.1-6.9); NEUTROPHILS % 59.3 % (38.7-80.0); PLATELET COUNT 156 x10e3/uL (140-360); RED BLOOD COUNT 4.47 x10e6/uL (3.6-5.1); RED CELL DISTRIBUTION WIDTH 15.9 % (11.7-14.4)
[2021-08-16 06:21] LABS: ALANINE AMINOTRANSFERASE 6 IU/L (0-55); ALBUMIN 3.3 g/dL (3.5-5.0); ALBUMIN/GLOBULIN RATIO 1.1 (0.8-2.0); ALKALINE PHOSPHATASE 52 IU/L (40-150); ANION GAP 11.2 mmol/L (8-16); BLOOD UREA NITROGEN < 5 mg/dL (7-26); CALCIUM 8.3 mg/dL (8.4-10.2); CARBON DIOXIDE 25 mmol/L (22-29); CHLORIDE 112 mmol/L (98-107); CREATININE, SERUM 0.64 mg/dL (0.57-1.11); GLUCOSE 84 mg/dL (74-118); POTASSIUM 4.2 mmol/L (3.5-5.1); SODIUM 144 mmol/L (136-145)
[2021-08-16 06:22] LABS: BUN/CREATININE RATIO 8 (6-25)
[2021-08-16 06:36] LABS: CHOL/HDL RATIO 4.5 (3.0-3.6); PHOSPHORUS 3.8 MG/DL (2.3-4.7)
[2021-08-16 06:56] LABS: THYROID STIMULATING HORMONE 1.741 uIU/mL (0.350-4.940)
[2021-08-16] MEDS: SERTRALINE HCL 50 MG TAB PO SCH (09:00)
[2021-08-16] MEDS: Morphine 4mg Syringe 4 MG/ML INJ IV PRN ×2 (09:31→16:29)
[2021-08-16] MEDS: ONDANSETRON HCL INJ 2MG/ML 2ML 2 MG/ML VIAL IV PRN ×2 (09:31→16:29)
[2021-08-16] MEDS: LORAZEPAM 1 MG TAB PO PRN ×2 (12:53→13:03)
[2021-08-16] MEDS ORDERED: HYDROXYZINE HCL 50 MG/ML VIAL IM PRN (13:15)
[2021-08-16] MEDS ORDERED: HYDROXYZINE PAMOATE 25 MG CAP PO PRN (13:15)
[2021-08-17 04:00] VITALS: BP 113/70
[2021-08-17 07:17] LABS: BASOPHILS # (AUTO) 0.1 (0.0-0.1); BASOPHILS % 1.2 % (0.0-1.0); EOSINOPHILS # (AUTO) 0.1 (0.0-0.4); EOSINOPHILS % 1.9 % (0.0-6.0); HEMOGLOBIN 13.1 g/dL (12.0-16.0); LYMPHOCYTES # (AUTO) 1.7 (1.0-3.2); LYMPHOCYTES % 24.3 % (18.0-39.1); MEAN CORPUSCULAR HEMOGLOBIN 30.3 pg (28-32); MEAN CORPUSCULAR HGB CONC 31.2 g/dL (31-35); MONOCYTES # (AUTO) 0.5 (0.2-0.8); MONOCYTES % 7.1 % (4.4-11.3); NEUTROPHILS # (AUTO) 4.5 (2.1-6.9); NEUTROPHILS % 65.2 % (38.7-80.0); PLATELET COUNT 160 x10e3/uL (140-360); RED BLOOD COUNT 4.33 x10e6/uL (3.6-5.1); RED CELL DISTRIBUTION WIDTH 15.7 % (11.7-14.4)
[2021-08-17] MEDS: Morphine 4mg Syringe 4 MG/ML INJ IV PRN ×3 (07:25→23:25)
[2021-08-17] MEDS: ONDANSETRON HCL INJ 2MG/ML 2ML 2 MG/ML VIAL IV PRN ×2 (07:25→23:25)
[2021-08-17] MEDS: SODIUM CHLORIDE 0.9% 1000ML 1,000 ML IV SCH ×3 (07:25→23:08)
[2021-08-17 07:50] LABS: ALANINE AMINOTRANSFERASE 7 IU/L (0-55); ALBUMIN 3.1 g/dL (3.5-5.0); ALBUMIN/GLOBULIN RATIO 1.1 (0.8-2.0); ALKALINE PHOSPHATASE 51 IU/L (40-150); ANION GAP 11.6 mmol/L (8-16); BLOOD UREA NITROGEN < 5 mg/dL (7-26); CALCIUM 7.9 mg/dL (8.4-10.2); CARBON DIOXIDE 22 mmol/L (22-29); CHLORIDE 110 mmol/L (98-107); CREATININE, SERUM 0.63 mg/dL (0.57-1.11); GLUCOSE 64 mg/dL (74-118); POTASSIUM 3.6 mmol/L (3.5-5.1); SODIUM 140 mmol/L (136-145)
[2021-08-17 07:52] LABS: BUN/CREATININE RATIO 8 (6-25)
[2021-08-17 08:16] VITALS: BP 105/65
[2021-08-17 08:35] VITALS: BP 105/65
[2021-08-17] MEDS: SERTRALINE HCL 50 MG TAB PO SCH (08:44)
[2021-08-17 11:30] VITALS: BP 107/61
[2021-08-17] MEDS ORDERED: GLYCOPYRROLATE INJ 0.2 MG/ML VIAL ONE (12:25)
[2021-08-17] MEDS ORDERED: POVIDONE IODINE 0.05% 0.05 % ML PO ONE (12:25)
[2021-08-17] MEDS ORDERED: ROCURONIUM BROMIDE 10 MG/ML 5ML VIAL IV ONE (12:25)
[2021-08-17] MEDS ORDERED: DEXAMETHASONE SOD PHOS INJ 4 MG/ML SDV ONE (12:25)
[2021-08-17] MEDS ORDERED: KETOROLAC TROMETHAMINE 30 MG/ML VIAL ONE (12:25)
[2021-08-17] MEDS ORDERED: ONDANSETRON HCL INJ 2MG/ML 2ML 2 MG/ML VIAL ONE ×2 (12:25→17:23)
[2021-08-17] MEDS ORDERED: SEVOFLURANE INHAL SOLN 250 ML PEN BTL ONE (12:25)
[2021-08-17] MEDS ORDERED: PROPOFOL IV EMULSION 10 MG/ML 20 ML VIAL ONE (12:25)
[2021-08-17] MEDS ORDERED: NEOSTIGMINE 1 MG/ML 10ML VIAL ONE (12:25)
[2021-08-17] MEDS ORDERED: FENTANYL CITRATE/PF 100MCG/2 ML INJ ONE (13:32)
[2021-08-17] MEDS ORDERED: MIDAZOLAM HCL 2 MG/2 ML VIAL ONE ×2 (13:32→17:28)
[2021-08-17 16:01] VITALS: BP 112/70
[2021-08-17] MEDS ORDERED: BUPIVACAINE 0.25% 30ML SDV ONE (16:03)
[2021-08-17] MEDS ORDERED: TRAMADOL/APAP 37.5MG-325MG TAB PO PRN (17:15)
[2021-08-17] MEDS ORDERED: HYDROMORPHONE 1MG/1ML INJ ONE (17:41)
[2021-08-17 20:00] VITALS: BP 134/75
[2021-08-18] VITALS: BP 135/90
[2021-08-18 04:00] VITALS: BP 110/62
[2021-08-18 08:00] VITALS: BP 124/76
[2021-08-18] MEDS: Morphine 4mg Syringe 4 MG/ML INJ IV PRN (08:49)
[2021-08-18] MEDS: SERTRALINE HCL 50 MG TAB PO SCH ×2 (08:49→08:54)
[2021-08-18] MEDS: SODIUM CHLORIDE 0.9% 1000ML 1,000 ML IV SCH (08:49)
[2021-08-18 10:04] LABS: BASOPHILS % 0.2 % (0.0-1.0); EOSINOPHILS % 0.1 % (0.0-6.0); HEMATOCRIT 40.8 % (34.2-44.1); HEMOGLOBIN 13.1 g/dL (12.0-16.0); LYMPHOCYTES # (AUTO) 1.1 (1.0-3.2); LYMPHOCYTES % 8.7 % (18.0-39.1); MEAN CORPUSCULAR HEMOGLOBIN 30.8 pg (28-32); MEAN CORPUSCULAR HGB CONC 32.1 g/dL (31-35); MONOCYTES # (AUTO) 0.8 (0.2-0.8); MONOCYTES % 6.4 % (4.4-11.3); NEUTROPHILS # (AUTO) 10.6 (2.1-6.9); NEUTROPHILS % 84.2 % (38.7-80.0); PLATELET COUNT 156 x10e3/uL (140-360); RED BLOOD COUNT 4.25 x10e6/uL (3.6-5.1); RED CELL DISTRIBUTION WIDTH 15.5 % (11.7-14.4)
[2021-08-18 10:13] LABS: ALANINE AMINOTRANSFERASE 11 IU/L (0-55); ALBUMIN 3.1 g/dL (3.5-5.0); ALBUMIN/GLOBULIN RATIO 1.1 (0.8-2.0); ALKALINE PHOSPHATASE 53 IU/L (40-150); ANION GAP 12.1 mmol/L (8-16); BLOOD UREA NITROGEN < 5 mg/dL (7-26); CARBON DIOXIDE 22 mmol/L (22-29); CHLORIDE 109 mmol/L (98-107); CREATININE, SERUM 0.64 mg/dL (0.57-1.11); GLUCOSE 123 mg/dL (74-118); LIPASE 17 U/L (8-78); MAGNESIUM 1.8 MG/DL (1.3-2.1); PHOSPHORUS 2.8 MG/DL (2.3-4.7); POTASSIUM 4.1 mmol/L (3.5-5.1); SODIUM 139 mmol/L (136-145)
[2021-08-18 10:23] LABS: BUN/CREATININE RATIO 8 (6-25)
[2021-08-18 12:00] VITALS: BP_SYST 125; BP_SYST 128; BP_DIAS 75; BP_DIAS 81
[2021-08-18] MEDS ORDERED: VISTARIL25 MG PO (14:06)
[2021-08-18] MEDS ORDERED: Tramadol/Apap 37.5MG-325MG PO (14:06)
[2021-08-18] MEDS ORDERED: SIMETHICONE80 MG PO (14:40)
== END 2021-08-18 15:50 | disposition home or self-care (01) | DRG 419 ==
LOC: ER 12:59 → ERHOLD 15:08 → MED/SURG3 15:56
PROVIDERS: ADMIT Internal Medicine; ATTEND Internal Medicine
PROC: 0FT44ZZ Resection of Gallbladder, Percutaneous Endoscopic Approach (ICD-10-PCS; principal; 2021-08-17 16:16)
DX: K80.10 Calculus of gallbladder with chronic cholecystitis without obstruction (principal); K21.9 Gastro-esophageal reflux disease without esophagitis; Z86.718 Personal history of other venous thrombosis and embolism; Z79.01 Long term (current) use of anticoagulants; D50.9 Iron deficiency anemia, unspecified; R63.4 Abnormal weight loss; Z68.20 Body mass index [BMI] 20.0-20.9, adult; F41.9 Anxiety disorder, unspecified; F32.A Depression, unspecified; Z80.0 Family history of malignant neoplasm of digestive organs; D25.9 Leiomyoma of uterus, unspecified; N92.0 Excessive and frequent menstruation with regular cycle; Z88.5 Allergy status to narcotic agent; F41.0 Panic disorder [episodic paroxysmal anxiety]; F17.200 Nicotine dependence, unspecified, uncomplicated; Z20.822 Contact with and (suspected) exposure to COVID-19
CPT/HCPCS: 36415; 71045; 74246; 76705; 80053; 80061; 81001; 83036; 83690; 83735; 84100; 84443; 84702; 85025; 88304; 93005; 94799; 96361; 99284; C1713; J1100; J1170; J1885; J2250; J2270; J2405; J2543; J2710; J3010; J7030; Q0177; U0002

== ENCOUNTER 2021-10-21 15:56 | Emergency (ER) | payer OTHER ==
[~2021-10-21] VITALS: Ht 175.3 cm; Wt 58.1 kg
[~2021-10-21 15:56] MED LIST changes: +ELIQUIS5 MG PO; +SIMETHICONE80 MG PO; +Tramadol/Apap 37.5MG-325MG PO; +VISTARIL25 MG PO
[2021-10-21] MEDS ORDERED: ONDANSETRON HCL INJ 2MG/ML 2ML 2 MG/ML VIAL IV STA (16:11)
[2021-10-21] MEDS ORDERED: SODIUM CHLORIDE 0.9% 1000ML 1,000 ML IV STA (16:11)
[2021-10-21 16:17] LABS: BASOPHILS # (AUTO) 0.1 (0.0-0.1); BASOPHILS % 0.6 % (0.0-1.0); EOSINOPHILS # (AUTO) 0.1 (0.0-0.4); EOSINOPHILS % 1.8 % (0.0-6.0); HEMOGLOBIN 17.2 g/dL (12.0-16.0); LYMPHOCYTES # (AUTO) 1.9 (1.0-3.2); LYMPHOCYTES % 24.4 % (18.0-39.1); MEAN CORPUSCULAR HEMOGLOBIN 31.7 pg (28-32); MEAN CORPUSCULAR HGB CONC 32.5 g/dL (31-35); MEAN CORPUSCULAR VOLUME 97.6 fL (81-99); MONOCYTES # (AUTO) 0.4 (0.2-0.8); MONOCYTES % 5.1 % (4.4-11.3); NEUTROPHILS # (AUTO) 5.4 (2.1-6.9); NEUTROPHILS % 67.8 % (38.7-80.0); PLATELET COUNT 224 x10e3/uL (140-360); RED BLOOD COUNT 5.43 x10e6/uL (3.6-5.1); RED CELL DISTRIBUTION WIDTH 14.5 % (11.7-14.4)
[2021-10-21 16:22] LABS: INR 0.84; PARTIAL THROMBOPLASTIN TIME 29.3 seconds (23.8-35.5); PROTHROMBIN TIME 12.3 seconds (11.9-14.5)
[2021-10-21 16:33] LABS: ALANINE AMINOTRANSFERASE 23 IU/L (0-55); ALBUMIN 4.2 g/dL (3.5-5.0); ALKALINE PHOSPHATASE 69 IU/L (40-150); BLOOD UREA NITROGEN 6 mg/dL (7-26); BUN/CREATININE RATIO 8 (6-25); CALCIUM 9.3 mg/dL (8.4-10.2); CARBON DIOXIDE 26 mmol/L (22-29); CHLORIDE 103 mmol/L (98-107); CREATINE KINASE 24 IU/L (29-168); CREATININE, SERUM 0.78 mg/dL (0.57-1.11); GLUCOSE 102 mg/dL (74-118); LIPASE 24 U/L (8-78); MAGNESIUM 1.9 MG/DL (1.3-2.1); SODIUM 139 mmol/L (136-145)
[2021-10-21] MEDS ORDERED: BELLADONNA ALK/PHENOBARBITAL 5 ML UDC PO ONE (16:45)
[2021-10-21] MEDS ORDERED: MAGNESIUM/ALUMINUM/SIMETHICONE 30 ML UDC PO ONE (16:45)
[2021-10-21] MEDS ORDERED: LIDOCAINE VISC 2% SOLN 15 ML UDC PO ONE (16:45)
[2021-10-21] MEDS ORDERED: IOPAMIDOL 370 MG/ML 100 ML INFUS..BTL INJ ONE (17:37)
[2021-10-21 18:02] LABS: CLARITY,URINE HAZY (CLEAR); COLOR,URINE YELLOW (YELLOW); KETONES,URINE TRACE (NEGATIVE); LEUKOCYTE ESTERASE ,URINE NEGATIVE (NEGATIVE); NITRITE,URINE NEGATIVE (NEGATIVE); PROTEIN,URINE DIPSTICK NEGATIVE (NEGATIVE); URINE UROBILINOGEN 0.2 mg/dL (0.2 - 1)
[2021-10-21 18:04] LABS: BACTERIA,URINE FEW /HPF; EPITHELIAL CELLS,URINE FEW /LPF; RBC,URINE 0-5 /HPF (0-5); WBC,URINE (MAN) 0-5 /HPF (0-5)
[2021-10-21 18:07] LABS: AMPHETAMINES SCREEN,URINE NEGATIVE (NEGATIVE); BENZODIAZEPINES SCREEN,URINE POSITIVE (NEGATIVE); PHENCYCLIDINE SCREEN,URINE NEGATIVE (NEGATIVE)
[2021-10-21 18:18] VITALS: BP 118/74
== END 2021-10-21 18:20 | disposition home or self-care (01) ==
LOC: ER 16:00
DX: R05.9 Cough, unspecified (principal); U07.1 COVID-19; R10.13 Epigastric pain; K21.9 Gastro-esophageal reflux disease without esophagitis; D64.9 Anemia, unspecified; F41.9 Anxiety disorder, unspecified; F17.210 Nicotine dependence, cigarettes, uncomplicated
CPT/HCPCS: 36415; 71045; 74177; 80053; 80307; 80320; 81001; 82550; 82553; 83690; 83735; 84484; 84702; 85025; 85610; 85730; 99284; C9113; J2405; J7030; Q9967; U0002

== ENCOUNTER 2021-11-11 13:34 | Inpatient (IN) | payer OTHER ==
[~2021-11-11] VITALS: Ht 175.3 cm; Wt 55.3 kg
[2021-11-11] MEDS ORDERED: SODIUM CHLORIDE 0.9% 1000ML 1,000 ML IV STA (14:20)
[2021-11-11] MEDS ORDERED: LIDOCAINE VISC 2% SOLN 15 ML UDC PO ONE (14:30)
[2021-11-11] MEDS ORDERED: BELLADONNA ALK/PHENOBARBITAL 5 ML UDC PO ONE (14:30)
[2021-11-11] MEDS ORDERED: MAGNESIUM/ALUMINUM/SIMETHICONE 30 ML UDC PO ONE (14:30)
[2021-11-11] MEDS ORDERED: ONDANSETRON HCL INJ 2MG/ML 2ML 2 MG/ML VIAL IV ONE (14:30)
[2021-11-11 14:43] LABS: BASOPHILS # (AUTO) 0.1 (0.0-0.1); BASOPHILS % 1.1 % (0.0-1.0); EOSINOPHILS # (AUTO) 0.2 (0.0-0.4); EOSINOPHILS % 1.9 % (0.0-6.0); HEMATOCRIT 51.3 % (34.2-44.1); HEMOGLOBIN 16.7 g/dL (12.0-16.0); LYMPHOCYTES # (AUTO) 1.5 (1.0-3.2); LYMPHOCYTES % 18.5 % (18.0-39.1); MEAN CORPUSCULAR HEMOGLOBIN 32.4 pg (28-32); MEAN CORPUSCULAR HGB CONC 32.6 g/dL (31-35); MEAN CORPUSCULAR VOLUME 99.4 fL (81-99); MONOCYTES # (AUTO) 0.8 (0.2-0.8); MONOCYTES % 10.4 % (4.4-11.3); NEUTROPHILS # (AUTO) 5.4 (2.1-6.9); NEUTROPHILS % 67.8 % (38.7-80.0); PLATELET COUNT 207 x10e3/uL (140-360); RED BLOOD COUNT 5.16 x10e6/uL (3.6-5.1); RED CELL DISTRIBUTION WIDTH 13.2 % (11.7-14.4)
[2021-11-11 14:52] LABS: INR 0.87; PROTHROMBIN TIME 12.6 seconds (11.9-14.5)
[2021-11-11 14:53] LABS: PARTIAL THROMBOPLASTIN TIME 33.2 seconds (23.8-35.5)
[2021-11-11 15:03] LABS: ALANINE AMINOTRANSFERASE 19 IU/L (0-55); ALBUMIN 4.2 g/dL (3.5-5.0); ALBUMIN/GLOBULIN RATIO 1.1 (0.8-2.0); ALKALINE PHOSPHATASE 74 IU/L (40-150); ANION GAP 15.4 mmol/L (8-16); BLOOD UREA NITROGEN 8 mg/dL (7-26); BUN/CREATININE RATIO 10 (6-25); CALCIUM 9.7 mg/dL (8.4-10.2); CARBON DIOXIDE 26 mmol/L (22-29); CHLORIDE 100 mmol/L (98-107); CREATINE KINASE 19 IU/L (29-168); CREATININE, SERUM 0.78 mg/dL (0.57-1.11); GLUCOSE 72 mg/dL (74-118); LIPASE 29 U/L (8-78); MAGNESIUM 2.4 MG/DL (1.3-2.1); POTASSIUM 4.4 mmol/L (3.5-5.1); SODIUM 137 mmol/L (136-145)
[2021-11-11] MEDS ORDERED: PROMETHAZINE HCL (IM) 25 MG/ML VIAL IM PRN (17:30)
[2021-11-11] MEDS: DEXTROSE 5%/0.9% SOD CHL 1,000 ML IV SCH (17:55)
[2021-11-11] MEDS: ONDANSETRON HCL INJ 2MG/ML 2ML 2 MG/ML VIAL IV PRN (18:45)
[2021-11-11] MEDS ORDERED: Morphine 4mg INJECTION 4 MG/ML INJ IV PRN (18:45)
[2021-11-11] MEDS ORDERED: Morphine 4mg INJECTION 4 MG/ML INJ ONE (18:52)
[2021-11-11] MEDS: HYDROMORPHONE 1MG/1ML INJ IV PRN (19:12)
[2021-11-11] MEDS ORDERED: SODIUM CHLORIDE 0.9% 1000ML 1,000 ML IV ONE (21:45)
[2021-11-11] MEDS ORDERED: MAGNESIUM/ALUMINUM/SIMETHICONE 30 ML UDC ONE (21:54)
[2021-11-11] MEDS ORDERED: LIDOCAINE VISC 2% SOLN 15 ML UDC ONE (21:54)
[2021-11-11] MEDS ORDERED: BELLADONNA ALK/PHENOBARBITAL 5 ML UDC ONE (21:54)
[2021-11-11] MEDS: DONNATAL/LIDOCAINE/MAALOX 30 ML SUSP PO PRN (22:01)
[2021-11-11] MEDS ORDERED: FAMOTIDINE20 MG PO (23:29)
[2021-11-11 23:30] VITALS: BP 108/77
[2021-11-12] VITALS: BP 108/77
[2021-11-12] MEDS: ONDANSETRON HCL INJ 2MG/ML 2ML 2 MG/ML VIAL IV PRN ×2 (00:42→07:00)
[2021-11-12] MEDS: HYDROMORPHONE 1MG/1ML INJ IV PRN ×2 (00:42→07:00)
[2021-11-12] MEDS: DEXTROSE 5%/0.9% SOD CHL 1,000 ML IV SCH ×2 (00:50→08:55)
[2021-11-12 00:54] VITALS: BP 108/77
[2021-11-12 04:00] VITALS: BP 98/53
[2021-11-12 05:42] LABS: BASOPHILS # (AUTO) 0.1 (0.0-0.1); BASOPHILS % 0.9 % (0.0-1.0); EOSINOPHILS # (AUTO) 0.2 (0.0-0.4); EOSINOPHILS % 2.3 % (0.0-6.0); HEMATOCRIT 43.1 % (34.2-44.1); HEMOGLOBIN 13.6 g/dL (12.0-16.0); LYMPHOCYTES # (AUTO) 1.9 (1.0-3.2); LYMPHOCYTES % 26.3 % (18.0-39.1); MEAN CORPUSCULAR HEMOGLOBIN 31.7 pg (28-32); MEAN CORPUSCULAR HGB CONC 31.6 g/dL (31-35); MEAN CORPUSCULAR VOLUME 100.5 fL (81-99); MONOCYTES # (AUTO) 0.7 (0.2-0.8); MONOCYTES % 9.3 % (4.4-11.3); NEUTROPHILS # (AUTO) 4.5 (2.1-6.9); NEUTROPHILS % 60.9 % (38.7-80.0); PLATELET COUNT 156 x10e3/uL (140-360); RED BLOOD COUNT 4.29 x10e6/uL (3.6-5.1); RED CELL DISTRIBUTION WIDTH 13.3 % (11.7-14.4)
[2021-11-12 06:08] LABS: ALBUMIN 3.1 g/dL (3.5-5.0); ALBUMIN/GLOBULIN RATIO 1.3 (0.8-2.0); ANION GAP 11.8 mmol/L (8-16); CALCIUM 8.2 mg/dL (8.4-10.2); CREATININE, SERUM 0.64 mg/dL (0.57-1.11); POTASSIUM 4.8 mmol/L (3.5-5.1)
[2021-11-12 08:00] VITALS: BP 94/64
[2021-11-12] MEDS: DONNATAL/LIDOCAINE/MAALOX 30 ML SUSP PO PRN (11:11)
[2021-11-12 11:50] VITALS: BP 101/67
[2021-11-12] MEDS ORDERED: METOCLOPRAMIDE HCL 10 MG/2ML VIAL IV ONE (12:45)
[2021-11-12] MEDS ORDERED: PROPOFOL IV EMULSION 10 MG/ML 20 ML VIAL ONE (12:58)
[2021-11-12] MEDS ORDERED: MIDAZOLAM HCL 2 MG/2 ML VIAL ONE (13:21)
[2021-11-12] MEDS ORDERED: FENTANYL CITRATE/PF 100MCG/2 ML INJ ONE (13:21)
[2021-11-12 17:09] VITALS: BP 105/65
== END 2021-11-12 18:29 | disposition left against medical advice (07) | DRG 392 ==
LOC: ER 13:42 → ERHOLD 17:27 → MED/SURG3 23:11
PROVIDERS: ADMIT Internal Medicine; ATTEND Internal Medicine
PROC: 0DB78ZX Excision of Stomach, Pylorus, Via Natural or Artificial Opening Endoscopic, Diagnostic (ICD-10-PCS; principal; 2021-11-12 16:38)
PROC: 0D758ZZ Dilation of Esophagus, Via Natural or Artificial Opening Endoscopic (ICD-10-PCS; 2021-11-12 16:38)
DX: K29.70 Gastritis, unspecified, without bleeding (principal); Z68.1 Body mass index [BMI] 19.9 or less, adult; E44.0 Moderate protein-calorie malnutrition; K20.90 Esophagitis, unspecified without bleeding; R63.4 Abnormal weight loss; Z53.29 Procedure and treatment not carried out because of patient's decision for other reasons; F41.9 Anxiety disorder, unspecified; F32.A Depression, unspecified; K21.9 Gastro-esophageal reflux disease without esophagitis; Z86.718 Personal history of other venous thrombosis and embolism; Z79.01 Long term (current) use of anticoagulants; Z86.711 Personal history of pulmonary embolism; Z87.11 Personal history of peptic ulcer disease; Z20.822 Contact with and (suspected) exposure to COVID-19; D64.9 Anemia, unspecified; F17.200 Nicotine dependence, unspecified, uncomplicated; E86.0 Dehydration
CPT/HCPCS: 0223U; 36415; 43239; 43450; 74230; 80053; 82550; 82553; 82948; 83690; 83735; 84484; 85025; 85610; 85730; 88305; 88312; 88342; 99284; J1170; J2250; J2270; J2405; J2765; J3010; J7030; J7042

== ENCOUNTER 2022-01-29 12:53 | Emergency (ER) | payer OTHER ==
[~2022-01-29] VITALS: Ht 175.3 cm; Wt 55.3 kg
[~2022-01-29 12:53] MED LIST changes: +FAMOTIDINE20 MG PO
[2022-01-29] MEDS ORDERED: SODIUM CHLORIDE FLUSH 10 ML SYR IV PRN (13:45)
[2022-01-29 14:03] LABS: BASOPHILS # (AUTO) 0.1 (0.0-0.1); EOSINOPHILS # (AUTO) 0.1 (0.0-0.4); EOSINOPHILS % 1.5 % (0.0-6.0); HEMATOCRIT 53.7 % (34.2-44.1); LYMPHOCYTES # (AUTO) 1.5 (1.0-3.2); LYMPHOCYTES % 20.5 % (18.0-39.1); MEAN CORPUSCULAR HEMOGLOBIN 32.5 pg (28-32); MEAN CORPUSCULAR HGB CONC 31.7 g/dL (31-35); MEAN CORPUSCULAR VOLUME 102.7 fL (81-99); MONOCYTES # (AUTO) 0.7 (0.2-0.8); MONOCYTES % 9.6 % (4.4-11.3); NEUTROPHILS # (AUTO) 4.9 (2.1-6.9); NEUTROPHILS % 67.1 % (38.7-80.0); PLATELET COUNT 226 x10e3/uL (140-360); RED BLOOD COUNT 5.23 x10e6/uL (3.6-5.1); RED CELL DISTRIBUTION WIDTH 13.6 % (11.7-14.4)
[2022-01-29 14:20] LABS: INR 0.85; PROTHROMBIN TIME 12.4 seconds (11.9-14.5)
[2022-01-29 14:21] LABS: PARTIAL THROMBOPLASTIN TIME 30.7 seconds (23.8-35.5)
[2022-01-29 14:29] LABS: ALBUMIN 4.3 g/dL (3.5-5.0); ALBUMIN/GLOBULIN RATIO 1.1 (0.8-2.0); ANION GAP 15.1 mmol/L (8-16); CALCIUM 9.8 mg/dL (8.4-10.2); CREATININE, SERUM 0.79 mg/dL (0.57-1.11); POTASSIUM 4.1 mmol/L (3.5-5.1)
[2022-01-29] MEDS ORDERED: GABAPENTIN300 MG PO (16:12)
== END 2022-01-29 16:31 | disposition home or self-care (01) ==
LOC: ER 12:57
DX: M79.621 Pain in right upper arm (principal); R20.2 Paresthesia of skin; G62.9 Polyneuropathy, unspecified; D64.9 Anemia, unspecified; F41.9 Anxiety disorder, unspecified; K21.9 Gastro-esophageal reflux disease without esophagitis; Z86.718 Personal history of other venous thrombosis and embolism; F17.210 Nicotine dependence, cigarettes, uncomplicated
CPT/HCPCS: 36415; 70450; 71045; 80053; 84702; 85025; 85610; 85730; 93931; 93971; 99282

== ENCOUNTER 2022-02-15 17:54 | Emergency (ER) | payer OTHER ==
[~2022-02-15] VITALS: Ht 175.3 cm; Wt 57.6 kg
[~2022-02-15 17:54] MED LIST changes: +GABAPENTIN300 MG PO
[2022-02-15 18:51] VITALS: BP 124/83
== END 2022-02-15 18:28 | disposition home or self-care (01) ==
LOC: ER 18:11
DX: M79.662 Pain in left lower leg (principal); S80.12XA Contusion of left lower leg, initial encounter; W01.0XXA Fall on same level from slipping, tripping and stumbling without subsequent striking against object, initial encounter; Y93.01 Activity, walking, marching and hiking; Y92.89 Other specified places as the place of occurrence of the external cause; D64.9 Anemia, unspecified; K27.9 Peptic ulcer, site unspecified, unspecified as acute or chronic, without hemorrhage or perforation; F41.9 Anxiety disorder, unspecified; Z86.718 Personal history of other venous thrombosis and embolism
CPT/HCPCS: 99282